=== PATIENT | male | born 1950 | race Caucasian/White ===

== ENCOUNTER 2019-02-11 10:10 | Inpatient (IN) | payer MEDICARE, SELFPAY ==
[2019-02-11] VITALS (8 sets, daily range): BP systolic 144–174; BP diastolic 70–95; PULSE 62–78; RESP 15–20; TEMP 36.4–36.7; O2SAT 94–99; BMI 38.8; BMI 38.5
--- NOTE | 2019-02-11 10:29 | CT_ITS ---
STUDY: CT ABDOMEN AND PELVIS WITHOUT CONTRAST REASON FOR EXAM: Male, 68 years old. Abdominal pain x1 week RADIATION DOSAGE (If Supplied By Facility): CTDIvol = ( 31.99 ) mGy, DLP = ( 1846.31 ) mGycm TECHNIQUE: Transaxial images were obtained from the dome of the diaphragm to the symphysis pubis with oral contrast, and without intravenous contrast. Sagittal and coronal images were reconstructed. Individualized dose optimization techniques were used for this CT. COMPARISON: None. FINDINGS: The visualized lung bases are unremarkable. The visualized portions of the heart are within normal limits. There is decreased attenuation of the liver consistent with steatosis. Normal gallbladder and extrahepatic biliary system. Normal spleen. There is diffuse atrophy of the pancreas. Normal bilateral adrenal glands. Right perinephric fat stranding or edema. Moderate right hydronephrosis without hydroureter. No obstructing stone. There is also left-sided hydronephrosis and left ureter. Prominent distention of the bladder suggesting urinary retention Normal visualized stomach. Normal small intestine. Prominent gaseous distended loops of colon with fecal retention. There is transition area with wall narrowing in the region of the rectum. Colonic diverticulosis without acute diverticulitis. The appendix is visualized and appears normal. Several prominent nonspecific pelvic lymph nodes. Normal abdominal aorta. Normal inferior vena cava. Normal retroperitoneum. Marked distention of the bladder compatible with urinary retention. Heterogeneous prostate Normal abdominal wall. There are diffuse degenerative changes of the visualized lumbar spine. CT/Abdomen/Pelvis without Cont IMPRESSION: 1. Significant distention of the urinary bladder with bilateral hydronephrosis and hydroureter without evidence of obstructing stone. There is bilateral perinephric fat stranding and edema suggesting inflammation and infection. Recommend placement of Sanchez catheter for decompression of the bladder. 2. There is prominent gaseous distended loops of colon with fecal retention. There appears to be transition point in the rectosigmoid colon with suspicion of wall thickening and underlying mass. Numerous prominent and suspicious pelvic lymph nodes are noted. Electronically Signed: Jaspal Bravo DO at 13:21 EDT Tel , Service support ,
--- NOTE | 2019-02-11 10:30 | ED.DCSUM_ITS ---
History of Present Illness Chief Complaint: Abd Pain Informant: Patient Onset: Weeks Current Severity: Moderate Maximum Severity: Moderate Narrative: Patient states that approximate month ago he was started on metformin for diabetes. He states this made him very sick and he stopped the medication. About a week and a half ago he started feeling ill again and noted his blood sugar was quite elevated, over 600. His PCP started him on insulin. His dose has been increased to twice throughout the past week. Blood sugars today are around 300. Patient continues to feel ill with nausea and diarrhea. He has lower abdominal cramping. He is abdomen is distended. Past Medical History - Allergies and Home Meds Allergies/Adverse Reactions: Allergies atorvastatin [From Lipitor] Allergy (Verified 02/11/19 10:11) Unknown Prior records reviewed: Yes Past Medical History: - - Reviewed Surgical History: herniorrhaphy Lives: Spouse/ Significant Other Smoking Status: Never smoker Review of Systems General: Denies: Chills, Fever Eyes: Denies: Visual changes - bilaterally ENT: Denies: Bilateral ear pain Cardiovascular: Denies: Chest pain Respiratory: Denies: Dyspnea Gastrointestinal: Reports: Abdominal pain, Nausea, Diarrhea Genitourinary: Denies: Dysuria, Hematuria Musculoskeletal: Reports: Myalgias Neurological: Denies: Headache Psych: Denies: Depression Endocrine: Reports: Polyuria, Polydipsia Hematologic: Denies: Easy bruising Allergy: Denies: Uticaria Physical Exam Vital Signs/Narrative: Vital Signs Temp Pulse Resp BP Pulse Ox 02/11/19 10:11 97.6 F L 78 18 144/85 H 96 Inital Vital Signs reviewed: Yes General: Well nourished, Well developed Head: Normocephalic Eyes: Perrl ENT: Moist mucous membranes Neck: Supple Cardiovascular: Regular rate, Tachycardia Respiratory: No distress, CTA bilaterally Abdomen: Soft, Normal bowel sounds, Tender, - - Abdomen distended with mild lower abdominal tenderness. Extremities: Nontender Skin: Normal color Neurological: Alert, Oriented x3 Psychological: Normal affect Diagnostic/Tx/Re-eval Impressions Abdomen/Pelvis CT 02/11/19 10:29 IMPRESSION: 1. Significant distention of the urinary bladder with bilateral hydronephrosis and hydroureter without evidence of obstructing stone. There is bilateral perinephric fat stranding and edema suggesting inflammation and infection. Recommend placement of Sanchez catheter for decompression of the bladder. 2. There is prominent gaseous distended loops of colon with fecal retention. There appears to be transition point in the rectosigmoid colon with suspicion of wall thickening and underlying mass. Numerous prominent and suspicious pelvic lymph nodes are noted. Electronically Signed: Jaspal Bravo DO at 13:21 EDT Tel , Service support , 02/11/19 10:29 Abdomen/Pelvis without Cont [CT] Stat Laboratory Results 02/11/19 02/11/19 02/11/19 10:50 10:50 13:45 WBC 9.7 RBC 4.43 L Hgb 12.7 L Hct 36.6 L MCV 82.6 MCH 28.7 MCHC 34.7 RDW Std Deviation 36.2 RDW Coeff of Argenis 11.9 Plt Count 209 MPV 10.6 Immature Gran % (Auto) 0.900 Neut % (Auto) 77.9 H Lymph % (Auto) 11.3 L [place] % (Auto) 9.4 Eos % (Auto) 0.3 Baso % (Auto) 0.2 Absolute Neuts (auto) 7.5 Absolute Lymphs (auto) 1.09 Nucleated RBC % 0 Sodium 118 L* Potassium 4.1 Chloride 81 L Carbon Dioxide 21.0 Anion Gap 16 H BUN 97 H Creatinine 8.69 H* Estim Creat Clear Calc 9.86 Est GFR (MDRD) Af Amer 8 L Est GFR (MDRD) Non-Af 7 L BUN/Creatinine Ratio 11.2 Glucose 264 H Calcium 8.0 L Total Bilirubin 0.60 Direct Bilirubin 0.21 AST 19 ALT 17 Alkaline Phosphatase 99 Total Protein 7.4 Albumin 3.2 Globulin 4.2 Urine Color Yellow Urine Clarity Clear Urine pH 6.0 Ur Specific [place] 1.010 Urine Protein Negative Urine Glucose (UA) 1000 H Urine Ketones Negative Urine Occult Blood Negative Urine Nitrite Negative Urine Bilirubin Negative Urine Urobilinogen Normal Ur Leukocyte Esterase Negative Urine RBC 0 SEEN Urine WBC 0 SEEN Ur Squamous Epith Cells 0 SEEN Urine Bacteria 0 SEEN Urine Mucus 0 SEEN - Medical Decision Making Patient was given morphine and Zofran on arrival. On repeat evaluation is resting comfortably. He is asked multiple times if he felt the urge to urinate and he denied. He was advised that his sodium level was quite low and he was in acute renal failure. After CT scan was obtained it was noted the patient had a very distended bladder. Sanchez catheter was placed and he had over 2500 cc of urine out. I did discuss CT findings which include gaseous distention of the colon loops with fecal retention. There is a possible transition point in the rectosigmoid colon with possible wall thickening and underlying mass. Patient has never had a colonoscopy. Patient will be admitted for further treatment. Now that his bladder is draining I anticipate his renal failure will improve. His sodium level will need to be corrected. I will speak with hospitalist. ED Disposition - Plan for ED Patient: Disposition: Acute Care Hospital [facility] Diagnosis: Renal failure, Urinary retention, Hyponatremia
[2019-02-11] MEDS: 0.9% Normal Saline 1,000 ML 1000 ML IV (10:54)
[2019-02-11] MEDS: Ondansetron 4 MG/2 ML Vial IV (10:54)
[2019-02-11] MEDS: Morphine 4 MG/ML Syringe IV (10:54)
[2019-02-11 10:56] LABS: Absolute Lymphocyte Count 1.09 X10^3/uL (0.83-4.51); Absolute Neutrophil Count 7.5 X10^3/uL (2.0-7.7); Basophil# 0.02 X10^3/uL; Basophil% 0.2 % (0-1); Eosinophil# 0.03 X10^3/uL; Eosinophils% 0.3 % (0-5); Hematocrit 36.6 % (40-54); Hemoglobin 12.7 g/dL (13.0-16.5); Lymphocyte # 1.09 X10^3/ul (4.0); Lymphocyte % 11.3 % (19-41); Mean Corp Hgb Conc 34.7 g/dL (32-36); Mean Corpuscular Hgb 28.7 pg (27.0-32.0); Mean Corpuscular Volume 82.6 fL (80-94); Mean Platelet Vol. 10.6 fl (6.2-12.0); Monocyte# 0.91 X10^3/uL; Monocyte% 9.4 % (0-10); NRBC Flagged by Analyzer 0 % (0-5); Neutrophil # 7.53 X10^3/uL (2.7-7.7); Neutrophil % 77.9 % (47-70); Platelet Count 209 K/mm3 (150-450); RBC Distribution Width CV 11.9 % (11.6-14.6); RBC Distribution Width SD 36.2 fl (35.1-43.9); Red Blood Count 4.43 M/mm3 (4.6-6.2); White Blood Count 9.7 K/mm3 (4.4-11.0)
[2019-02-11 11:18] LABS: AST(SGOT) 19 U/L (15-37); Alanine Aminotransfer ALT/SGPT 17 U/L (16-61); Albumin, Serum 3.2 g/dL (3.2-5.0); Alkaline Phosphatase 99 U/L (45-117); Anion Gap 16 (5-15); BUN 97 mg/dL (7-18); BUN/Creat Ratio 11.2 RATIO (10-20); Bilirubin, Direct 0.21 mg/dL (0.00-0.30); Chloride 81 mmol/L (98-107); Creatinine, Serum 8.69 mg/dL (0.70-1.30); EST Glomerular Filtration Rate 7 mL/min (>60); Est Glom Filt Rate - Afr Amer 8 mL/min (>60); Estimated Creatinine Clearance 9.86 ml/min; Globulin 4.2 g/dL (2.2-4.2); Glucose 264 mg/dL (74-106); Potassium 4.1 mmol/L (3.5-5.1); Protein, Total 7.4 g/dL (6.4-8.2); Sodium Level 118 mmol/L (136-145)
--- NOTE | 2019-02-11 11:20 | ED.RN ---
LAB RESULTED NA 118, SERUM CREATININ IS 8.69, PHYSICIAN NOTIFIED
[2019-02-11] MEDS: 0.9% Normal Saline 1,000 ML 150 ML IV (12:30)
[2019-02-11 13:53] LABS: Bacteria 0 SEEN /hpf (None Seen); Color, Urine Yellow (Yellow); Glucose, Dipstick 1000 mg/dl (Normal); Ketone-Dipstick Negative (Negative); Leukocyte Esterase-Dipstick Negative /ul (Negative); Mucous, Urine 0 SEEN /hpf (<or=2+); Nitrite-Dipstick Negative (Negative); Occult Blood-Urine Negative /ul (Negative); Protein-Dipstick Negative (Negative); Red Blood Cells-Urine 0 SEEN /hpf (0-5); Squamous Epithelial Cells - UA 0 SEEN /hpf (0-5); Urine Bilirubin Dipstick Negative (Negative); Urine Clarity Clear (Clear); Urine Urobilinogen Normal (Normal); White Blood Cells 0 SEEN /hpf (0-5)
--- NOTE | 2019-02-11 14:55 | PCM.HP.STD ---
Problem List (1) Uncontrolled type 2 diabetes mellitus Status: Acute (2) Renal failure Status: Acute (3) Urinary retention Status: Acute (4) Hyponatremia Status: Acute History of Present Illness Date of Admission: 02/11/19 Chief Complaint: Abdominal pain The patient is a 68 year old M with new onset type 2 diabetes which is uncontrolled, presents with weeks of not feeling well. He states that about a month ago he was started on metformin for high blood sugar and diabetes, however that made him feel very ill and he could not continue it and therefore his doctor transitioned to insulin. In the last week he has had to increase his insulin from 20 U to 40 U. He presents today because of abdominal distention and abdominal pain as well as just not feeling well. In the ER today a CT scan was performed that shows a rectosigmoid transition point which could be a potential mass since he is never had a colonoscopy, as well as suspicious lymph nodes. He also had a highly distended bladder with mild hydronephrosis on the right, and new onset renal failure. A Mahajan was placed in the ER with over 2 L of urine output and he was started on IVF. Past Medical History Allergies atorvastatin [From Lipitor] Allergy (Verified 02/11/19 10:11) Unknown Home Medications: Ambulatory Orders Medication Instructions Recorded Insulin Glargine,Hum.rec.anlog 30 unit SQ QHS 02/11/19 [Lantus] Surgical History: herniorrhaphy Lives: Spouse/ Significant Other Smoking Status: Never smoker Alcohol: None Drugs: None - *Family History Maternal History Items: Cancer Paternal History Items: No pertinent history Review of Systems Constitutional: Reports: Malaise. Denies: Chills, Fever, Weight Change HEENT: Denies: Head Aches, Sinus Congestion, Sinus Drainage Cardiovascular: Denies: Chest Pain, Palpitations Respiratory: Denies: Cough, Shortness of breath at rest, Sputum production Gastrointestinal: Reports: Abdominal Pain. Denies: Nausea, Vomiting Genitourinary: Reports: Retention. Denies: Dysuria Musculoskeletal: Denies: Joint Pain, Joint Tenderness Skin: Denies: Rash, Wounds Neurological: Denies: Numbness, Tingling, Focal weakness Psychiatric: Denies: Anxiety, Depression Hematologic/ Lymphatic: Denies: Easy Bruising, Easy Bleeding VTE Information - Inpt Only VTE Present on Admission: No Patient Problems: Active and Suspected Problems Renal failure (Acute) Urinary retention (Acute) Hyponatremia (Acute) Uncontrolled type 2 diabetes mellitus (Acute) - Physical Exam General: Alert, Oriented x3, Cooperative, No apparent distress HEENT: Atraumatic, PERRLA, EOMI, Normocephalic Oral: Dry Mucosa Neck: Supple, No JVD Lungs: Clear to auscultation, Normal air movement, No rhonchi, No wheeze, No rales Cardiovascular: Regular rate, Regular Rhythm, Normal S1, Normal S2, No murmurs Abdomen: Soft, Non Tender - He was tender prior to the mahajan being placed, Non-Distended, No Hepato-splenomegaly, Obese Extremities: No edema, Capillary Refill Less than 3 Seconds Skin: No rashes, No breakdown Neurological: Neuro grossly intact, Sensory exam intact to light touch and pain Psych/Mental Status: Normal Affect, Appropriate Vital Signs Temp Pulse Resp BP Pulse Ox 97.6 F L 64 15 144/72 H 96 02/11/19 10:11 02/11/19 14:37 02/11/19 14:37 02/11/19 14:37 02/11/19 10:11 Oxygen Delivery Method Room Air Weight: 310 lb 13.628 oz Body Mass Index (BMI) 38.8 Laboratory Tests Past 24 Hrs 02/11/19 02/11/19 02/11/19 10:50 10:50 13:45 WBC 9.7 RBC 4.43 L Hgb 12.7 L Hct 36.6 L MCV 82.6 MCH 28.7 MCHC 34.7 RDW Std Deviation 36.2 RDW Coeff of Argenis 11.9 Plt Count 209 MPV 10.6 Immature Gran % (Auto) 0.900 Neut % (Auto) 77.9 H Lymph % (Auto) 11.3 L [place] % (Auto) 9.4 Eos % (Auto) 0.3 Baso % (Auto) 0.2 Absolute Neuts (auto) 7.5 Absolute Lymphs (auto) 1.09 Nucleated RBC % 0 Sodium 118 L* Potassium 4.1 Chloride 81 L Carbon Dioxide 21.0 Anion Gap 16 H BUN 97 H Creatinine 8.69 H* Estim Creat Clear Calc 9.86 Est GFR (MDRD) Af Amer 8 L Est GFR (MDRD) Non-Af 7 L BUN/Creatinine Ratio 11.2 Glucose 264 H Calcium 8.0 L Total Bilirubin 0.60 Direct Bilirubin 0.21 AST 19 ALT 17 Alkaline Phosphatase 99 Total Protein 7.4 Albumin 3.2 Globulin 4.2 Urine Color Yellow Urine Clarity Clear Urine pH 6.0 Ur Specific [place] 1.010 Urine Protein Negative Urine Glucose (UA) 1000 H Urine Ketones Negative Urine Occult Blood Negative Urine Nitrite Negative Urine Bilirubin Negative Urine Urobilinogen Normal Ur Leukocyte Esterase Negative Urine RBC 0 SEEN Urine WBC 0 SEEN Ur Squamous Epith Cells 0 SEEN Urine Bacteria 0 SEEN Urine Mucus 0 SEEN Assessment/Plan All Active Problems Renal failure (Acute) Urinary retention (Acute) Hyponatremia (Acute) Uncontrolled type 2 diabetes mellitus (Acute) 1. Acute renal failure secondary to urinary retention/hyponatremia -The renal failure is likely secondary to his urinary retention, therefore will monitor creatinine and if he does not have fairly rapid resolution of his creatinine then we will plan on consulting nephrology -We will place Mahajan and maintain -We will start him on Flomax - we will monitor his hyponatremia, part of it is related to his elevated blood sugars as he is recently been in the 600s, his sodium of 118 corrected but 121 based on his blood sugar today -We will place him on normal saline at 100, given how high his blood sugars have been recently there could be an osmotic diuresis effect causing his hyponatremia -The ED is attempting to obtain labs from his PCP 2. Uncontrolled diabetes type 2/severe obesity -He is currently on Lantus 40 units at night which we will continue -Accu-Cheks and provide sliding scale insulin as well as Lispro 5U TIDAC -Will obtain lipids and a A1c - His BMI is 38.9 and lifestyle modifications were discussed including diet and exercise. Will consult the bill of materials clerk for teaching 3. Rectosigmoid mass? - He does have a transition point on my review of the CT where the bladder is compressing the rectosigmoid - However there are also visible lymph nodes lending credence to the possibility of a mass - Consult to Dr. Marroquin for evaluation, patient request since Dr. Marroquin placed the wifes chemo port DVT: Heparin Code Visit Inpatient E&M: 51070 Init Hosp L3
--- NOTE | 2019-02-11 15:36 | NURSING ---
called ER informed nurse had sent message around [phone] ok to send patient.
[2019-02-11 16:46] LABS: Bedside Glucose 201 mg/dL (70-110)
[2019-02-11] MEDS: 0.9% Normal Saline 1,000 ML 100 ML IV (18:14)
[2019-02-11] MEDS: Insulin Lispro 100 UNIT/ML INSULN.PEN SC ×2 (18:16→22:01)
[2019-02-11] MEDS: Tamsulosin HCl 0.4 MG Capsule PO (18:17)
--- NOTE | 2019-02-11 19:05 | NURSING ---
PT GIVEN 1 TAP WATER ENEMA, PT TOLERATED WELL
[2019-02-11] MEDS: Heparin Injection (Vial) 5,000 UNIT/ML VIAL 5000 UNIT SC (22:00)
[2019-02-11 22:15] LABS: Bedside Glucose 185 mg/dL (70-110)
[2019-02-12 03:32] VITALS: BP 128/60; PULSE 65; RESP 20; TEMP 36.4; O2SAT 94
[2019-02-12] MEDS: 0.9% Normal Saline 1,000 ML 100 ML IV ×2 (05:38→16:56)
[2019-02-12 05:48] LABS: Absolute Lymphocyte Count 1.21 X10^3/uL (0.83-4.51); Absolute Neutrophil Count 5.6 X10^3/uL (2.0-7.7); Basophil# 0.03 X10^3/uL; Basophil% 0.4 % (0-1); Eosinophil# 0.04 X10^3/uL; Eosinophils% 0.5 % (0-5); Hematocrit 34.6 % (40-54); Hemoglobin 11.8 g/dL (13.0-16.5); Lymphocyte # 1.21 X10^3/ul (4.0); Lymphocyte % 15.3 % (19-41); Mean Corp Hgb Conc 34.1 g/dL (32-36); Mean Corpuscular Hgb 28.3 pg (27.0-32.0); Mean Platelet Vol. 11.2 fl (6.2-12.0); Monocyte# 0.99 X10^3/uL; Monocyte% 12.5 % (0-10); NRBC Flagged by Analyzer 0 % (0-5); Neutrophil # 5.58 X10^3/uL (2.7-7.7); Neutrophil % 70.5 % (47-70); Platelet Count 208 K/mm3 (150-450); RBC Distribution Width CV 12.3 % (11.6-14.6); RBC Distribution Width SD 37.2 fl (35.1-43.9); Red Blood Count 4.17 M/mm3 (4.6-6.2); White Blood Count 7.9 K/mm3 (4.4-11.0)
--- NOTE | 2019-02-12 06:00 | EKG12_ITS ---
Test Reason : PRE OP Blood Pressure : / mmHG Vent. Rate : 071 BPM Atrial Rate : 071 BPM P-R Int : 170 ms QRS Dur : 110 ms QT Int : 428 ms P-R-T Axes : 059 039 029 degrees QTc Int : 465 ms Normal sinus rhythm Normal ECG No previous ECGs available Confirmed by RILEY ALBARADO ([id number]), make up editor DELIO BALL ([id number]) on 02/15/2019 2:59:42 PM Referred By: Dakota Quinonez Confirmed By:RILEY ALBARADO
[2019-02-12 06:20] LABS: Anion Gap 12 (5-15); BUN 49 mg/dL (7-18); BUN/Creat Ratio 20.4 RATIO (10-20); Calcium,Total 8.2 mg/dL (8.5-10.1); Chloride 104 mmol/L (98-107); EST Glomerular Filtration Rate 29 mL/min (>60); Est Glom Filt Rate - Afr Amer 35 mL/min (>60); Estimated Creatinine Clearance 34.73 ml/min; Glucose 81 mg/dL (74-106); Potassium 3.2 mmol/L (3.5-5.1); Sodium Level 141 mmol/L (136-145)
--- NOTE | 2019-02-12 06:31 | RAD_ITS ---
STUDY: X-RAY - ABDOMEN/PELVIS REASON FOR EXAM: Male, 68 years old. Abdominal distention. TECHNIQUE: AP supine and upright views of the abdomen and pelvis. COMPARISON: None. FINDINGS: There is elevation of the left hemidiaphragm. There is an abundance of fecal material throughout the colon. There is no demonstrated free abdominal air. The visualized liver, spleen and kidneys are grossly normal in size and morphology. Normal soft tissue structures. There are diffuse degenerative changes of the visualized lumbar spine. RAD/Abd Inc Decub and/or Erect IMPRESSION: Large amount of fecal material is seen in the colon. Electronically Signed: Lalo Ryan, at 10:36 EDT , Service support ,
--- NOTE | 2019-02-12 07:26 | CON.PCM_ITS ---
Reason for Consult Date of Consultation: 02/12/19 Reason for Consultation: Elevated PSA, acute urinary retention with renal failure and bilateral hydronephrosis History of Present Illness: The patient is a 68 year old male presented to the hospital with a distended abdomen, acute renal failure with a creatinine up to 8. He had 2.5 L in his bladder Sanchez catheter was placed he had bilateral hydronephrosis, his creatinine is coming down overnight. He had a very distended bladder with lots of gas. Also his diabetes was out of control. He is also found to have a PSA very elevated at 100. Past Medical History Allergies atorvastatin [From Lipitor] Allergy (Verified 02/11/19 10:11) Unknown Home Medications: Ambulatory Orders Medication Instructions Recorded Insulin Glargine,Hum.rec.anlog 30 unit SQ QHS 02/11/19 [Lantus] Surgical History: herniorrhaphy Psychiatric History: No pertinent psych hx Lives: Spouse/ Significant Other Smoking Status: Never smoker Alcohol: None Drugs: None - *Family History Maternal History Items: Cancer Paternal History Items: No pertinent history Review of Systems Constitutional: Denies: Chills, Fever, Weight Change HEENT: Denies: Head Aches, Sinus Congestion, Sinus Drainage Cardiovascular: Denies: Chest Pain, Palpitations Respiratory: Denies: Cough, Shortness of breath at rest, Sputum production Gastrointestinal: Denies: Abdominal Pain, Nausea, Vomiting Genitourinary: Reports: Retention. Denies: Dysuria Musculoskeletal: Denies: Joint Pain, Joint Tenderness Skin: Denies: Rash, Wounds Neurological: Denies: Numbness, Tingling, Focal weakness Psychiatric: Denies: Anxiety, Depression, Homicidal Ideations, Suicidal Ideations Hematologic/ Lymphatic: Denies: Easy Bruising, Easy Bleeding Physical Exam - Physical Exam Vital Signs Temp 97.6 F L 02/12/19 03:32 Pulse 65 02/12/19 03:32 Resp 20 H 02/12/19 03:32 BP 128/60 H 02/12/19 03:32 Pulse Ox 94 02/12/19 03:32 Intake & Output 02/10/19 02/11/19 02/12/19 23:59 23:59 23:59 Intake Total 451 / 451 2102 / 2102 Output Total 2800 / 2800 6450 / 6450 Balance -2349 / -2349 -4348 / -4348 Weight: 135.9 kg Intake: Oral 200 / 200 1000 / 1000 IV fluid/meds 251 / 251 1102 / 1102 Output: Urine 2800 / 2800 6450 / 6450 Laboratory Tests Past 24 Hrs 02/11/19 02/11/19 02/11/19 10:50 10:50 10:50 WBC 9.7 RBC 4.43 L Hgb 12.7 L Hct 36.6 L MCV 82.6 MCH 28.7 MCHC 34.7 RDW Std Deviation 36.2 RDW Coeff of Argenis 11.9 Plt Count 209 MPV 10.6 Immature Gran % (Auto) 0.900 Neut % (Auto) 77.9 H Lymph % (Auto) 11.3 L [place] % (Auto) 9.4 Eos % (Auto) 0.3 Baso % (Auto) 0.2 Absolute Neuts (auto) 7.5 Absolute Lymphs (auto) 1.09 Nucleated RBC % 0 Sodium 118 L* Potassium 4.1 Chloride 81 L Carbon Dioxide 21.0 Anion Gap 16 H BUN 97 H Creatinine 8.69 H* Estim Creat Clear Calc 9.86 Est GFR (MDRD) Af Amer 8 L Est GFR (MDRD) Non-Af 7 L BUN/Creatinine Ratio 11.2 Glucose 264 H Calcium 8.0 L Total Bilirubin 0.60 Direct Bilirubin 0.21 AST 19 ALT 17 Alkaline Phosphatase 99 Total Protein 7.4 Albumin 3.2 Globulin 4.2 PSA Screen 107.00 H Urine Color Urine Clarity Urine pH Ur Specific [place] Urine Protein Urine Glucose (UA) Urine Ketones Urine Occult Blood Urine Nitrite Urine Bilirubin Urine Urobilinogen Ur Leukocyte Esterase Urine RBC Urine WBC Ur Squamous Epith Cells Urine Bacteria Urine Mucus 02/11/19 02/12/19 02/12/19 13:45 05:16 05:16 WBC 7.9 RBC 4.17 L Hgb 11.8 L Hct 34.6 L MCV 83.0 MCH 28.3 MCHC 34.1 RDW Std Deviation 37.2 RDW Coeff of Argenis 12.3 Plt Count 208 MPV 11.2 Immature Gran % (Auto) 0.800 Neut % (Auto) 70.5 H Lymph % (Auto) 15.3 L [place] % (Auto) 12.5 H Eos % (Auto) 0.5 Baso % (Auto) 0.4 Absolute Neuts (auto) 5.6 Absolute Lymphs (auto) 1.21 Nucleated RBC % 0 Sodium 141 Potassium 3.2 L Chloride 104 Carbon Dioxide 25.0 Anion Gap 12 BUN 49 H Creatinine 2.40 H Estim Creat Clear Calc 34.73 Est GFR (MDRD) Af Amer 35 L Est GFR (MDRD) Non-Af 29 L BUN/Creatinine Ratio 20.4 H Glucose 81 Calcium 8.2 L Total Bilirubin Direct Bilirubin AST ALT Alkaline Phosphatase Total Protein Albumin Globulin PSA Screen Urine Color Yellow Urine Clarity Clear Urine pH 6.0 Ur Specific [place] 1.010 Urine Protein Negative Urine Glucose (UA) 1000 H Urine Ketones Negative Urine Occult Blood Negative Urine Nitrite Negative Urine Bilirubin Negative Urine Urobilinogen Normal Ur Leukocyte Esterase Negative Urine RBC 0 SEEN Urine WBC 0 SEEN Ur Squamous Epith Cells 0 SEEN Urine Bacteria 0 SEEN Urine Mucus 0 SEEN Assessment/Plan All Active Problems Renal failure (Acute) Urinary retention (Acute) Hyponatremia (Acute) Uncontrolled type 2 diabetes mellitus (Acute) Assessment and plan 68-year-old male presented to the hospital with acute urinary retention bilateral hydronephrosis catheter was placed drained a significant amount of urine out he has bilateral hydronephrosis elevated PSA of over 100. For now we will recommend continue with catheter drainage to drain the bladder and the kidneys. Possible he may have prostate cancer but also the PSA could be elevated from distended bladder and recent traumatization. He is going require prostate surgery to regain normal spontaneous voiding. Plan to have him follow-up in the office for a checkup once all his other medical issues are resolved then would proceed with a TURP and a prostate biopsy. Patient is to go home with a Sanchez catheter and he can call my office for an appointment if any questions let me know.
--- NOTE | 2019-02-12 07:35 | PCM.CONS.GEN ---
Reason for Consult Date of Consultation: 02/12/19 History of Present Illness: The patient is a 68 year old M who notes a history of lower abdominal discomfort and some difficulty voiding for the past few weeks. He now noted increasing difficulty moving his bowels and significant abdominal distention along with lower abdominal pain. He denied blood in the stools. He previously had a colonoscopy on 2010. When he presented emergency department, the CT scan reading was read as a rectosigmoid transition point that could've felt to benefit potential mass along with suspicious lymph nodes. The patient is also have a highly distended bladder with hydronephrosis likely secondary to reflux. I reviewed the CT scan and my impression was that the colon was obstructed likely from external compression from the bladder. I also felt the prostate looked significantly irregular and was concerned about the possibility of prostate cancer versus prosthetic hypertrophy. I was consulted for possible colonic obstruction. A Sanchez catheter was placed in the emergency department and 2 L of urine diuresed rapidly. Overnight, the patient additional 6 L of urine output. His initial presentation laboratory studies werea sodium of 118 which is improved in the morning 141.BUN and creatinine improved from 97 and 8.69 to 49 and 2.4. I had ordered a PSA test. This returned as 107. After the Sanchez catheter was placed the patient did note some flatus but has had a small bowel movement following an enema. Past Medical History Allergies atorvastatin [From Lipitor] Allergy (Verified 02/11/19 10:11) Unknown Home Medications: Ambulatory Orders Medication Instructions Recorded Insulin Glargine,Hum.rec.anlog 30 unit SQ QHS 02/11/19 [Lantus] Surgical History: herniorrhaphy Psychiatric History: No pertinent psych hx Lives: Spouse/ Significant Other Smoking Status: Never smoker Alcohol: None Drugs: None - *Family History Maternal History Items: Cancer Paternal History Items: No pertinent history Review of Systems Constitutional: Reports: Malaise. Denies: Chills, Fever, Weight Change HEENT: Denies: Head Aches, Sinus Congestion, Sinus Drainage Cardiovascular: Denies: Chest Pain, Palpitations Respiratory: Denies: Cough, Shortness of breath at rest, Sputum production Gastrointestinal: Reports: Abdominal Pain, Constipation. Denies: Nausea, Vomiting Genitourinary: Reports: Retention. Denies: Dysuria Musculoskeletal: Denies: Joint Pain, Joint Tenderness Skin: Denies: Rash, Wounds Neurological: Denies: Numbness, Tingling, Focal weakness Psychiatric: Denies: Anxiety, Depression, Homicidal Ideations, Suicidal Ideations Hematologic/ Lymphatic: Denies: Easy Bruising, Easy Bleeding Patient Problems: Active and Suspected Problems Renal failure (Acute) Urinary retention (Acute) Hyponatremia (Acute) Uncontrolled type 2 diabetes mellitus (Acute) - Physical Exam General: Alert, Oriented x3, Cooperative HEENT: Atraumatic, PERRLA, EOMI, Normocephalic Neck: Supple, No JVD, Negative Carotid Bruits Lungs: Clear to auscultation, Normal air movement Cardiovascular: Regular rate, No murmurs Abdomen: Bowel Sounds Present, Soft, Non Tender Extremities: No edema, Capillary Refill Less than 3 Seconds Skin: No rashes, No breakdown Musculoskeletal: No Tenderness to Palpation of Joints or Extremities Neurological: Cranial nerves II-XII grossly intact Psych/Mental Status: Normal Affect, Appropriate Vital Signs Temp Pulse Resp BP Pulse Ox 97.6 F L 65 20 H 128/60 H 94 02/12/19 03:32 02/12/19 03:32 02/12/19 03:32 02/12/19 03:32 02/12/19 03:32 Oxygen Delivery Method CPAP Weight: 135.9 kg Body Mass Index (BMI) 38.5 Intake and Output for Last 24 Hours 02/10/19 02/11/19 02/12/19 23:59 23:59 23:59 Intake Total 451 / 451 2102 / 2102 Output Total 2800 / 2800 6450 / 6450 Balance -2349 / -2349 -4348 / -4348 Laboratory Tests Past 24 Hrs 02/11/19 02/11/19 02/11/19 10:50 10:50 10:50 WBC 9.7 RBC 4.43 L Hgb 12.7 L Hct 36.6 L MCV 82.6 MCH 28.7 MCHC 34.7 RDW Std Deviation 36.2 RDW Coeff of Argenis 11.9 Plt Count 209 MPV 10.6 Immature Gran % (Auto) 0.900 Neut % (Auto) 77.9 H Lymph % (Auto) 11.3 L [place] % (Auto) 9.4 Eos % (Auto) 0.3 Baso % (Auto) 0.2 Absolute Neuts (auto) 7.5 Absolute Lymphs (auto) 1.09 Nucleated RBC % 0 Sodium 118 L* Potassium 4.1 Chloride 81 L Carbon Dioxide 21.0 Anion Gap 16 H BUN 97 H Creatinine 8.69 H* Estim Creat Clear Calc 9.86 Est GFR (MDRD) Af Amer 8 L Est GFR (MDRD) Non-Af 7 L BUN/Creatinine Ratio 11.2 Glucose 264 H Calcium 8.0 L Total Bilirubin 0.60 Direct Bilirubin 0.21 AST 19 ALT 17 Alkaline Phosphatase 99 Total Protein 7.4 Albumin 3.2 Globulin 4.2 PSA Screen 107.00 H Urine Color Urine Clarity Urine pH Ur Specific [place] Urine Protein Urine Glucose (UA) Urine Ketones Urine Occult Blood Urine Nitrite Urine Bilirubin Urine Urobilinogen Ur Leukocyte Esterase Urine RBC Urine WBC Ur Squamous Epith Cells Urine Bacteria Urine Mucus 02/11/19 02/12/19 02/12/19 13:45 05:16 05:16 WBC 7.9 RBC 4.17 L Hgb 11.8 L Hct 34.6 L MCV 83.0 MCH 28.3 MCHC 34.1 RDW Std Deviation 37.2 RDW Coeff of Argenis 12.3 Plt Count 208 MPV 11.2 Immature Gran % (Auto) 0.800 Neut % (Auto) 70.5 H Lymph % (Auto) 15.3 L [place] % (Auto) 12.5 H Eos % (Auto) 0.5 Baso % (Auto) 0.4 Absolute Neuts (auto) 5.6 Absolute Lymphs (auto) 1.21 Nucleated RBC % 0 Sodium 141 Potassium 3.2 L Chloride 104 Carbon Dioxide 25.0 Anion Gap 12 BUN 49 H Creatinine 2.40 H Estim Creat Clear Calc 34.73 Est GFR (MDRD) Af Amer 35 L Est GFR (MDRD) Non-Af 29 L BUN/Creatinine Ratio 20.4 H Glucose 81 Calcium 8.2 L Total Bilirubin Direct Bilirubin AST ALT Alkaline Phosphatase Total Protein Albumin Globulin PSA Screen Urine Color Yellow Urine Clarity Clear Urine pH 6.0 Ur Specific [place] 1.010 Urine Protein Negative Urine Glucose (UA) 1000 H Urine Ketones Negative Urine Occult Blood Negative Urine Nitrite Negative Urine Bilirubin Negative Urine Urobilinogen Normal Ur Leukocyte Esterase Negative Urine RBC 0 SEEN Urine WBC 0 SEEN Ur Squamous Epith Cells 0 SEEN Urine Bacteria 0 SEEN Urine Mucus 0 SEEN POC Glucose 02/11/19 02/11/19 21:56 16:34 POC Glucose 185 H 201 H Assessment/Plan All Active Problems Renal failure (Acute) Urinary retention (Acute) Hyponatremia (Acute) Uncontrolled type 2 diabetes mellitus (Acute) urinary retention, prostate cancer versus significant benign prostatic hypertrophy, questionable colonic transition point. The patient was seen by Dr. Frias. He'll follow up in Dr. Brand's office for ultrasound-guided prostate exam and/or biopsy. The patient will have a Sanchez catheter maintained until that time. As the patient had some improvement exam I do not plan for emergency unprepped colonoscopy today. My plan was for the patient to try Miralax Gatorade prep and then plan for some elective colonoscopy tomorrow to evaluate not just the area of concern but the entire colon. The patient worsened the risks, benefits, possible complications and alternatives and consents to the planned endoscopy procedure.
[2019-02-12 07:49] VITALS: BP 116/54; PULSE 72; RESP 16; TEMP 36.6; O2SAT 97
[2019-02-12] MEDS: Insulin Lispro 100 UNIT/ML INSULN.PEN SC ×4 (08:11→21:24)
[2019-02-12 08:26] LABS: Bedside Glucose 88 mg/dL (70-110)
--- NOTE | 2019-02-12 08:37 | PN_ITS ---
Patient Problems: Active and Suspected Problems Renal failure (Acute) Urinary retention (Acute) Hyponatremia (Acute) Uncontrolled type 2 diabetes mellitus (Acute) Subjective: Patient is a 68-year-old gentleman admitted with acute urinary retention. CT of the abdomen and pelvis obtained demonstrated Significant distention of the urinary bladder with bilateral hydronephrosis and hydroureter. Admitted to regular nursing floor Sanchez catheter placed consultation placed to both general surgery as well as urology Objective: GENERAL: cooperative HEENT: Atraumatic; EYES; Anicteric, Normal Conjunctiva NECK; supple, normal thyroid, RESPIRATORY: Diminished to auscultation CARDIOVASCULAR: Regular S1 S2, GI: soft, non-tender, normoactive bowel sounds, : No Renal angle tenderness; EXTREMITIES: No edema, no clubbing, MUSCULOSKELETAL: No Joint Tenderness; NEURO: Awake; no lateralizing signs. SKIN: No Rash PSYCH; Normal affect Vitals/I&O's: Vital Signs Temp Pulse Resp BP Pulse Ox 97.8 F 72 16 116/54 L 97 02/12/19 07:49 02/12/19 07:49 02/12/19 07:49 02/12/19 07:49 02/12/19 07:49 Oxygen Delivery Method Room Air Weight: 135.9 kg Body Mass Index (BMI) 38.5 Intake and Output for Last 24 Hours 02/10/19 02/11/19 02/12/19 23:59 23:59 23:59 Intake Total 451 / 451 2102 / 2102 Output Total 2800 / 2800 6450 / 6450 Balance -2349 / -2349 -4348 / -4348 Laboratory Results 02/11/19 10:50: WBC 9.7, RBC 4.43 L, Hgb 12.7 L, Hct 36.6 L, MCV 82.6, MCH 28.7, MCHC 34.7, RDW Std Deviation 36.2, RDW Coeff of Argenis 11.9, Plt Count 209, MPV 10.6, Immature Gran % (Auto) 0.900, Neut % (Auto) 77.9 H, Lymph % (Auto) 11.3 L, [place] % (Auto) 9.4, Eos % (Auto) 0.3, Baso % (Auto) 0.2, Absolute Neuts (auto) 7.5, Absolute Lymphs (auto) 1.09, Nucleated RBC % 0 02/11/19 10:50: Sodium 118 L*, Potassium 4.1, Chloride 81 L, Carbon Dioxide 21.0, Anion Gap 16 H, BUN 97 H, Creatinine 8.69 H*, Estim Creat Clear Calc 9.86, Est GFR (MDRD) Af Amer 8 L, Est GFR (MDRD) Non-Af 7 L, BUN/Creatinine Ratio 11.2, Glucose 264 H, Calcium 8.0 L, Total Bilirubin 0.60, Direct Bilirubin 0.21, AST 19, ALT 17, Alkaline Phosphatase 99, Total Protein 7.4, Albumin 3.2, Globulin 4.2 02/11/19 10:50: PSA Screen 107.00 H 02/11/19 13:45: Urine Color Yellow, Urine Clarity Clear, Urine pH 6.0, Ur Specific [place] 1.010, Urine Protein Negative, Urine Glucose (UA) 1000 H, Urine Ketones Negative, Urine Occult Blood Negative, Urine Nitrite Negative, Urine Bilirubin Negative, Urine Urobilinogen Normal, Ur Leukocyte Esterase Negative, Urine RBC 0 SEEN, Urine WBC 0 SEEN, Ur Squamous Epith Cells 0 SEEN, Urine Bacteria 0 SEEN, Urine Mucus 0 SEEN 02/11/19 16:34: POC Glucose 201 H 02/11/19 21:56: POC Glucose 185 H 02/12/19 05:16: WBC 7.9, RBC 4.17 L, Hgb 11.8 L, Hct 34.6 L, MCV 83.0, MCH 28.3, MCHC 34.1, RDW Std Deviation 37.2, RDW Coeff of Argenis 12.3, Plt Count 208, MPV 11.2, Immature Gran % (Auto) 0.800, Neut % (Auto) 70.5 H, Lymph % (Auto) 15.3 L, [place] % (Auto) 12.5 H, Eos % (Auto) 0.5, Baso % (Auto) 0.4, Absolute Neuts (auto) 5.6, Absolute Lymphs (auto) 1.21, Nucleated RBC % 0 02/12/19 05:16: Sodium 141, Potassium 3.2 L, Chloride 104, Carbon Dioxide 25.0, Anion Gap 12, BUN 49 H, Creatinine 2.40 H, Estim Creat Clear Calc 34.73, Est GFR (MDRD) Af Amer 35 L, Est GFR (MDRD) Non-Af 29 L, BUN/Creatinine Ratio 20.4 H, Glucose 81, Calcium 8.2 L 02/12/19 08:04: POC Glucose 88 Current Medications Dextrose (D50w Syringe) 0 gm IV X1 PRN; Protocol PRN Reason: Hypoglycemia Glucagon () 1 mg IM .X1 PRN PRN Reason: Hypoglycemia Heparin Sodium (Porcine) (Heparin Na) 5,000 unit SC Q12 [facility] Last Admin: 02/12/19 01:10 Dose: Not Given Documented by: Sodium Chloride () 1,000 mls @ 100 mls/hr IV .Q10H [facility] Last Admin: 02/12/19 05:38 Dose: 100 mls/hr Documented by: Insulin Glargine (Lantus (Bkc)) 40 units SC QHS [facility] Last Admin: 02/11/19 22:02 Dose: 40 u Documented by: Insulin Human Lispro (Humalog Kwikpen (Bkc)) 0 unit SC ACHS [facility]; Protocol Last Admin: 02/12/19 08:07 Dose: Not Given Documented by: Insulin Human Lispro (Humalog Kwikpen (Bkc)) 5 unit SC TIDAC [facility] Last Admin: 02/12/19 08:11 Dose: 5 u Documented by: Sodium Chloride () 10 - 40 ml IV UD PRN PRN Reason: SALINE FLUSH Tamsulosin HCl (Flomax) 0.4 mg PO DAILY@1730 [facility] Last Admin: 02/11/19 18:17 Dose: 0.4 mg Documented by: Medical Necessity - Tobacco Use Smoking Status: Never smoker Assessment/Plan All Active Problems Renal failure (Acute) Urinary retention (Acute) Hyponatremia (Acute) Uncontrolled type 2 diabetes mellitus (Acute) Patient is a 68-year-old gentleman admitted with acute urinary retention. CT of the abdomen and pelvis obtained demonstrated Significant distention of the urinary bladder with bilateral hydronephrosis and hydroureter. Admitted to regular nursing floor Sanchez catheter placed consultation placed to both general surgery as well as urology 1. Acute urinary retention secondary to bladder outlet obstruction Sanchez catheter was placed consult placed to Dr. Coulter with urology his note and recommendations reviewed 2. Acute kidney injury secondary to obstructive uropathy significant improvement in kidney function following relief of patient's urinary retention 3. Diabetes mellitus type 2 uncontrolled with significant hyperglycemia on admission patient started on long-acting insulin 4. Hyponatremia significant on admission attributed to patient hypoglycemia patient's sodium levels normalized 5. Hypokalemia corrected per protocol 6. Questionable rectosigmoid mass based on CT finding consult placed to Dr. Hernandez for possible endoscopic evaluation 7. DVT prophylaxis heparin 8. Obesity with BMI of 38.5 weight loss advised Active Medications Dextrose (D50w Syringe) 0 gm IV X1 PRN; Protocol PRN Reason: Hypoglycemia Glucagon () 1 mg IM .X1 PRN PRN Reason: Hypoglycemia Heparin Sodium (Porcine) (Heparin Na) 5,000 unit SC Q12 [facility] Last Admin: 02/12/19 01:10 Dose: Not Given Documented by: Sodium Chloride () 1,000 mls @ 100 mls/hr IV .Q10H [facility] Last Admin: 02/12/19 05:38 Dose: 100 mls/hr Documented by: Insulin Glargine (Lantus (Bkc)) 40 units SC QHS [facility] Last Admin: 02/11/19 22:02 Dose: 40 u Documented by: Insulin Human Lispro (Humalog Kwikpen (Bkc)) 0 unit SC ACHS [facility]; Protocol Last Admin: 02/12/19 08:07 Dose: Not Given Documented by: Insulin Human Lispro (Humalog Kwikpen (Bkc)) 5 unit SC TIDAC [facility] Last Admin: 02/12/19 08:11 Dose: 5 u Documented by: Sodium Chloride () 10 - 40 ml IV UD PRN PRN Reason: SALINE FLUSH Tamsulosin HCl (Flomax) 0.4 mg PO DAILY@1730 [facility] Last Admin: 02/11/19 18:17 Dose: 0.4 mg Documented by: Clinical Impression(s) from Imaging Studies Abdomen/Pelvis CT 02/11/19 10:29 IMPRESSION: 1. Significant distention of the urinary bladder with bilateral hydronephrosis and hydroureter without evidence of obstructing stone. There is bilateral perinephric fat stranding and edema suggesting inflammation and infection. Recommend placement of Sanchez catheter for decompression of the bladder. 2. There is prominent gaseous distended loops of colon with fecal retention. There appears to be transition point in the rectosigmoid colon with suspicion of wall thickening and underlying mass. Numerous prominent and suspicious pelvic lymph nodes are noted. Electronically Signed: Jaspal Bravo DO at 13:21 EDT Tel , Service support , Code Visit Inpatient E&M: 89049 Subs Hosp L2
[2019-02-12] MEDS: Polyethylene Glycol 3350 BOWEL PREP PO (10:13)
[2019-02-12] MEDS: Bisacodyl 5 MG Tablet 20 MG PO (10:17)
--- NOTE | 2019-02-12 11:00 | CASEMGMT ---
RN SHEKHAR Face to Face with patient for initial transition planning/care coordination assessment. RN CM introduced self and role at [facility]. Patient lying in bed, alert and oriented. Patient willing to participate in assessment and is able to answer all questions appropriately. Care providers, pharmacy, and demographics verified. Patient wishes to discharge home, denies need for home health at this time. Patient states he has no further needs or concerns at this time. CM to follow for discharge planning needs that may arise. PCP: Tung Specialists: none Preferred Pharmacy: [facility] Insurance: [employer] [facility] Prescription Benefit: yes Living Will/HPOA: Yes, son Rufus Ramirez LNOK: , son Living Arrangements: Patient lives with in 2 story home. Patient is independent at home. Transportation: self/ DME/HHC: Patient states he has bipap at home. Patient denies previous HHC. Disposition Plan: Patient to discharge home with family support and follow-up plans in place. Dinora WATTS, RN, CM
[2019-02-12 11:35] LABS: Bedside Glucose 198 mg/dL (70-110)
[2019-02-12 13:42] VITALS: BP 136/73; PULSE 68; RESP 16; TEMP 36.6; O2SAT 96
[2019-02-12] MEDS: Tamsulosin HCl 0.4 MG Capsule PO (17:04)
[2019-02-12 17:16] LABS: Bedside Glucose 258 mg/dL (70-110)
[2019-02-12 19:21] VITALS: BP 140/77; PULSE 68; RESP 20; TEMP 36.4; O2SAT 99
[2019-02-12] MEDS: Heparin Injection (Vial) 5,000 UNIT/ML VIAL 5000 UNIT SC (21:23)
[2019-02-12 21:45] LABS: Bedside Glucose 181 mg/dL (70-110)
[2019-02-13] VITALS (11 sets, daily range): BP systolic 106–150; BP diastolic 63–81; PULSE 60–76; RESP 16–20; TEMP 36.5–37; O2SAT 92–97; BMI 38.5
[2019-02-13] MEDS: 0.9% Normal Saline 1,000 ML 100 ML IV ×2 (02:34→11:14)
[2019-02-13 05:31] LABS: Absolute Lymphocyte Count 1.41 X10^3/uL (0.83-4.51); Basophil# 0.05 X10^3/uL; Basophil% 0.7 % (0-1); Eosinophil# 0.11 X10^3/uL; Eosinophils% 1.5 % (0-5); Hematocrit 34.6 % (40-54); Hemoglobin 11.3 g/dL (13.0-16.5); Lymphocyte # 1.41 X10^3/ul (4.0); Lymphocyte % 18.7 % (19-41); Mean Corp Hgb Conc 32.7 g/dL (32-36); Mean Corpuscular Hgb 28.1 pg (27.0-32.0); Mean Corpuscular Volume 86.1 fL (80-94); Mean Platelet Vol. 10.8 fl (6.2-12.0); Monocyte# 0.86 X10^3/uL; Monocyte% 11.4 % (0-10); NRBC Flagged by Analyzer 0 % (0-5); Neutrophil # 5.03 X10^3/uL (2.7-7.7); Neutrophil % 66.5 % (47-70); Platelet Count 215 K/mm3 (150-450); RBC Distribution Width CV 12.7 % (11.6-14.6); RBC Distribution Width SD 40.2 fl (35.1-43.9); Red Blood Count 4.02 M/mm3 (4.6-6.2); White Blood Count 7.6 K/mm3 (4.4-11.0)
[2019-02-13 05:52] LABS: Anion Gap 6 (5-15); BUN 14 mg/dL (7-18); BUN/Creat Ratio 14.5 RATIO (10-20); Calcium,Total 7.8 mg/dL (8.5-10.1); Chloride 109 mmol/L (98-107); Creatinine, Serum 0.97 mg/dL (0.70-1.30); EST Glomerular Filtration Rate 82 mL/min (>60); Est Glom Filt Rate - Afr Amer 99 mL/min (>60); Estimated Creatinine Clearance 85.92 ml/min; Glucose 139 mg/dL (74-106); Magnesium 2.3 mg/dL (1.6-2.6); Potassium 3.7 mmol/L (3.5-5.1); Sodium Level 144 mmol/L (136-145)
[2019-02-13 06:45] LABS: Bedside Glucose 132 mg/dL (70-110)
--- NOTE | 2019-02-13 07:50 | PCM.PN.HOSP ---
Patient Problems: Active and Suspected Problems Renal failure (Acute) Urinary retention (Acute) Hyponatremia (Acute) Uncontrolled type 2 diabetes mellitus (Acute) Subjective: Patient seen complains of not having had a good rest during the night. He is scheduled to undergo colonoscopy. Creatinine down to 0.97. Objective: GENERAL: cooperative HEENT: Atraumatic; EYES; Anicteric, Normal Conjunctiva NECK; supple, normal thyroid, RESPIRATORY: Diminished to auscultation CARDIOVASCULAR: Regular S1 S2, GI: soft, non-tender, normoactive bowel sounds, : No Renal angle tenderness; mahajan catheter in place EXTREMITIES: No edema, no clubbing, MUSCULOSKELETAL: No Joint Tenderness; NEURO: Awake; no lateralizing signs. SKIN: No Rash PSYCH; Normal affect Vitals/I&O's: Vital Signs Temp Pulse Resp BP Pulse Ox 98.5 F 76 20 H 128/64 H 92 02/13/19 02:22 02/13/19 02:22 02/13/19 02:22 02/13/19 02:22 02/13/19 02:22 Oxygen Delivery Method Room Air Weight: 135.9 kg Body Mass Index (BMI) 38.5 Intake and Output for Last 24 Hours 02/11/19 02/12/19 02/13/19 23:59 23:59 23:59 Intake Total 451 / 451 4046 / 6173 2674 / 2674 Output Total 2800 / 2800 8500 / 9825 2575 / 2575 Balance -2349 / -2349 -4454 / -3652 99 / 99 Laboratory Results 02/12/19 08:04: POC Glucose 88 02/12/19 11:22: POC Glucose 198 H 02/12/19 16:59: POC Glucose 258 H 02/12/19 21:17: POC Glucose 181 H 02/13/19 05:14: WBC 7.6, RBC 4.02 L, Hgb 11.3 L, Hct 34.6 L, MCV 86.1, MCH 28.1, MCHC 32.7, RDW Std Deviation 40.2, RDW Coeff of Argenis 12.7, Plt Count 215, MPV 10.8, Immature Gran % (Auto) 1.200 H, Neut % (Auto) 66.5, Lymph % (Auto) 18.7 L, [place] % (Auto) 11.4 H, Eos % (Auto) 1.5, Baso % (Auto) 0.7, Absolute Neuts (auto) 5.0, Absolute Lymphs (auto) 1.41, Nucleated RBC % 0 02/13/19 05:14: Sodium 144, Potassium 3.7, Chloride 109 H, Carbon Dioxide 29.0, Anion Gap 6, BUN 14, Creatinine 0.97, Estim Creat Clear Calc 85.92, Est GFR (MDRD) Af Amer 99, Est GFR (MDRD) Non-Af 82, BUN/Creatinine Ratio 14.5, Glucose 139 H, Calcium 7.8 L, Magnesium 2.3 02/13/19 06:43: POC Glucose 132 H Current Medications Dextrose (D50w Syringe) 0 gm IV X1 PRN; Protocol PRN Reason: Hypoglycemia Glucagon () 1 mg IM .X1 PRN PRN Reason: Hypoglycemia Heparin Sodium (Porcine) (Heparin Na) 5,000 unit SC Q12 [facility] Last Admin: 02/12/19 21:23 Dose: 5,000 unit Documented by: Sodium Chloride () 1,000 mls @ 100 mls/hr IV .Q10H [facility] Last Admin: 02/13/19 02:34 Dose: 100 mls/hr Documented by: Insulin Glargine (Lantus (Bk)) 20 units SC QHS [facility] Last Admin: 02/12/19 21:24 Dose: 20 u Documented by: Insulin Human Lispro (Humalog Kwikpen (Bk)) 0 unit SC ACHS [facility]; Protocol Last Admin: 02/13/19 06:51 Dose: Not Given Documented by: Polyethylene Glycol (Clearlax For Bowel Prep) 0 bottle PO DAILY@1000 [facility] Last Admin: 02/12/19 10:13 Dose: 1 bottle Documented by: Potassium Chloride (K-Dur) 20 meq PO BIDCM [facility] Last Admin: 02/12/19 17:02 Dose: 20 meq Documented by: Sodium Chloride () 10 - 40 ml IV UD PRN PRN Reason: SALINE FLUSH Tamsulosin HCl (Flomax) 0.4 mg PO DAILY@1730 [facility] Last Admin: 02/12/19 17:04 Dose: 0.4 mg Documented by: Medical Necessity - Tobacco Use Smoking Status: Never smoker Assessment/Plan All Active Problems Renal failure (Acute) Urinary retention (Acute) Hyponatremia (Acute) Uncontrolled type 2 diabetes mellitus (Acute) Patient is a 68-year-old gentleman admitted with acute urinary retention. CT of the abdomen and pelvis obtained demonstrated Significant distention of the urinary bladder with bilateral hydronephrosis and hydroureter. Admitted to regular nursing floor Mahajan catheter placed consultation placed to both general surgery as well as urology 1. Acute urinary retention secondary to bladder outlet obstruction Mahajan catheter was placed consult placed to Dr. Coulter with urology his note and recommendations reviewed 2. Acute kidney injury secondary to obstructive uropathy significant improvement in kidney function following relief of patient's urinary retention this resolved as of 02/13/2019. 3. Diabetes mellitus type 2 uncontrolled with significant hyperglycemia on admission patient started on long-acting insulin 4. Hyponatremia significant on admission attributed to patient hypoglycemia patient's sodium levels normalized 5. Hypokalemia corrected per protocol 6. Questionable rectosigmoid mass based on CT finding consult placed to Dr. Hernandez for possible endoscopic evaluation plan is for patient undergo colonoscopy on 03/02/2019. 7. DVT prophylaxis heparin 8. Obesity with BMI of 38.5 weight loss advised Code Visit Inpatient E&M: 31044 Subs Hosp L2
--- NOTE | 2019-02-13 11:30 | COLBX_PTH ---
PATIENT: PATI COSTA LOC: MS3 U#:[id number] AGE/SX: 68/M ROOM: MS308 RE02/11/[address]: Dr. Rufsu Eubanks MD : 1950 BED: 1 DIS: 02/13/2019 SPEC #: [id number] RECD: 02/13/19 13:19 STATUS: MEHDI REQ #: [id number] LUIS MIGUEL: 02/13/19 11:[address]: Dante Marroquin DEPT: SURGICAL PATHOLOGY RECD BY: Vidal Workman ENTERED: 02/13/19 13:52 SP TYPE: COLON BX OTHR DR: MD Dr. Lacho Orr MD Dr. Mark Elderbrock, MD Dr. Nicholas F Kotsonis, MD Tissues: Sigmoid colon biopsy Procedures: Surgery Specimen Level IV HEADER OPERATION: Colonoscopy (MAC) PRE-OP DIAGNOSIS: Rule out colonic obstruction TISSUE SUBMITTED: Low sigmoid polyp MICROSCOPIC DIAGNOSIS Low sigmoid colon polyp, biopsy: Hyperplastic polyp. Fecal debris. AM:jerri 02/14/19 MICROSCOPIC DESCRIPTION Slides are reviewed. GROSS DESCRIPTION Received in fixative is one container labeled with the patient's name and designated low sigmoid polyp. The specimen consists of multiple irregular fragments of light whyte soft tissue that in aggregate measure 1.5 x 0.5 x <0.1 cm. The specimen is totally submitted in one cassette. / AM:jerri 02/13/19 TC:5 CPT: 62495
--- NOTE | 2019-02-13 13:06 | OP.ENDO_ITS ---
02/13/2019 Alejo Ruby [address] [place] [address] Re : Colonoscopy procedure for [facility] Dear Dr. Ruby This procedure was performed on Wednesday, February 13, 2019. My impressions and recommendations are as follows: Impressions : - Preparation of the colon was fair. - Prostate - left lobe suspicious mass 2 to 6 cm from the anal verge. - One 4 mm polyp in the sigmoid colon, removed with a cold biopsy forceps. Resected and retrieved. - The examination was otherwise normal. - The distal rectum and anal verge are normal on retroflexion view. Recommendations : - Discharge patient to home. - Resume previous diet. - Continue present medications. - Return to my office in 1 week. - Repeat colonoscopy for surveillance based on pathology results. My findings are described in the full procedure note, which is enclosed. If I can be of further assistance, please feel free to contact me at Doctor phone number(s): , Work: . Sincerely, Dante Marroquin MD 02/13/2019 1:06:00 PM This report has been signed electronically.
[2019-02-13 14:01] LABS: Bedside Glucose 129 mg/dL (70-110)
--- NOTE | 2019-02-13 16:02 | PCM.DC ---
- Discharge Diagnoses Current Active Problems: Current Active and Chronic Problems Renal failure (Acute) Urinary retention (Acute) Hyponatremia (Acute) Uncontrolled type 2 diabetes mellitus (Acute) You will use the following diet at home:: Calorie/Carbohydrate Controlled (specify 1200, 1400, etc) - 1800 Your food should be the consistency of: Regular Discharge Activity: Return to Normal Activity Catheter: Sanchez to leg bag Allergies/Adverse Reactions: Allergies atorvastatin [From Lipitor] Allergy (Verified 02/11/19 10:11) Unknown Medications to take at Discharge Insulin Glargine,Hum.rec.anlog [Lantus] 20 unit SQ QHS #0 02/13/19 Tamsulosin HCl [Flomax] 0.4 mg PO DAILY@1730 #60 cap 02/13/19 The following prescriptions were given: Tamsulosin HCl [Flomax] 0.4 mg PO DAILY@1730 #60 cap Transmission Status: Pending to [facility] Primary Care Physician: Alejo Ruby MD [Primary Care Provider] - Please follow up with your Primary Care Physician in: in 5-7 days Test Results: Test results from this visit will be discussed in further detail at your follow-up appointment, if applicable. Please Follow Up With: Lacho Jorge MD When: in 5-7 days Proposed Discharge Date: 02/13/19
--- NOTE | 2019-02-13 16:04 | PCM.DC.SUM ---
Discharge Date and Diagnosis - Problem List Patient Problems: Active and Suspected Problems Renal failure (Acute) Urinary retention (Acute) Hyponatremia (Acute) Uncontrolled type 2 diabetes mellitus (Acute) Date of Admission: 02/11/19 Date of Discharge: 02/13/19 - Primary Discharge Diagnosis Active and Suspected Problems Renal failure (Acute) Urinary retention (Acute) Hyponatremia (Acute) Uncontrolled type 2 diabetes mellitus (Acute) Hospital Course and Treatment Summary of Care Provided: Patient is a 68-year-old gentleman admitted with acute urinary retention. CT of the abdomen and pelvis obtained demonstrated Significant distention of the urinary bladder with bilateral hydronephrosis and hydroureter. Admitted to regular nursing floor Sanchez catheter placed consultation placed to both general surgery as well as urology 1. Acute urinary retention secondary to bladder outlet obstruction Sanchez catheter was placed consult placed to Dr. Jorge with urology his note and recommendations reviewed patient was discharged with a Sanchez catheter with plan for patient to follow-up with urology as outpatient in 5 to 7 days for subsequent care 2. Acute kidney injury secondary to obstructive uropathy significant improvement in kidney function following relief of patient's urinary retention this resolved as of 02/13/2019. 3. Diabetes mellitus type 2 uncontrolled with significant hyperglycemia on admission patient started on long-acting insulin 4. Hyponatremia significant on admission attributed to patient hypoglycemia patient's sodium levels normalized 5. Hypokalemia corrected per protocol 6. Questionable rectosigmoid mass based on CT finding consult placed to Dr. Hernandez for possible endoscopic evaluation plan is for patient undergo colonoscopy on 03/02/2019. Colonoscopy performed demonstrated a suspicious prostatic mass. Was also found to have a 4 mm polyp in the sigmoid colon which was removed with cold biopsy forceps 7. DVT prophylaxis heparin 8. Obesity with BMI of 38.5 weight loss advised Patient Problems: Active and Suspected Problems Renal failure (Acute) Urinary retention (Acute) Hyponatremia (Acute) Uncontrolled type 2 diabetes mellitus (Acute) Objective: GENERAL: cooperative HEENT: Atraumatic; EYES; Anicteric, Normal Conjunctiva NECK; supple, normal thyroid, RESPIRATORY: Diminished to auscultation CARDIOVASCULAR: Regular S1 S2, GI: soft, non-tender, normoactive bowel sounds, : No Renal angle tenderness; Sanchez catheter in place EXTREMITIES: No edema, no clubbing, MUSCULOSKELETAL: No Joint Tenderness; NEURO: Awake; no lateralizing signs. SKIN: No Rash PSYCH; Normal affect - Physical Exam Vital Signs Temp Pulse Resp BP Pulse Ox 97.8 F 60 18 145/81 H 97 02/13/19 13:44 02/13/19 13:45 02/13/19 13:44 02/13/19 13:44 02/13/19 13:44 Oxygen Delivery Method Room Air Weight: 135.9 kg Body Mass Index (BMI) 38.5 Intake and Output for Last 24 Hours 02/11/19 02/12/19 02/13/19 23:59 23:59 23:59 Intake Total 451 / 451 4046 / 6173 3318 / 3318 Output Total 2800 / 2800 8500 / 9825 3325 / 3325 Balance -2349 / -2349 -4454 / -3652 -7 / -7 Laboratory Tests Past 24 Hrs 02/13/19 02/13/19 05:14 05:14 WBC 7.6 RBC 4.02 L Hgb 11.3 L Hct 34.6 L MCV 86.1 MCH 28.1 MCHC 32.7 RDW Std Deviation 40.2 RDW Coeff of Argenis 12.7 Plt Count 215 MPV 10.8 Immature Gran % (Auto) 1.200 H Neut % (Auto) 66.5 Lymph % (Auto) 18.7 L [place] % (Auto) 11.4 H Eos % (Auto) 1.5 Baso % (Auto) 0.7 Absolute Neuts (auto) 5.0 Absolute Lymphs (auto) 1.41 Nucleated RBC % 0 Sodium 144 Potassium 3.7 Chloride 109 H Carbon Dioxide 29.0 Anion Gap 6 BUN 14 Creatinine 0.97 Estim Creat Clear Calc 85.92 Est GFR (MDRD) Af Amer 99 Est GFR (MDRD) Non-Af 82 BUN/Creatinine Ratio 14.5 Glucose 139 H Calcium 7.8 L Magnesium 2.3 POC Glucose 02/13/19 02/13/19 02/12/19 13:51 06:43 21:17 POC Glucose 129 H 132 H 181 H 02/12/19 16:59 POC Glucose 258 H Discharge Diet: 1800 Calorie Control Diet Discharge Activity: Return to Normal Activity Catheter: Sanchez to leg bag Home Medications: Medications to take at Discharge Insulin Glargine,Hum.rec.anlog [Lantus] 20 unit SQ QHS #0 02/13/19 Tamsulosin HCl [Flomax] 0.4 mg PO DAILY@1730 #60 cap 02/13/19 Following Prescrptions Were Given to Patient: Tamsulosin HCl [Flomax] 0.4 mg PO DAILY@1730 #60 cap Transmission Status: Pending to [facility] Primary Care Physician: Alejo Ruby MD [Primary Care Provider] - Please follow up with your Primary Care Physician in: in 5-7 days Please Follow Up With: Lacho Jorge MD When: in 5-7 days Disposition: Home Minutes spent on discharge:: 45 Patient Condition:: Stable Medical Necessity - Tobacco Use Smoking Status: Never smoker Meaningful Use Info Meaningful Use Diagnoses (Choose all that apply): None applicable Code Visit Inpatient E&M: 75555 Disch Hosp
--- NOTE | 2019-02-13 19:33 | PCM.PN.SRG ---
Subjective: no complaints of abdominal pain - Physical Exam General: Alert, Oriented x3, Cooperative Lungs: Clear to auscultation, Normal air movement Cardiovascular: Regular rate, No murmurs Abdomen: Bowel Sounds Present, Soft, Non Tender Vital Signs Temp Pulse Resp BP Pulse Ox 98.2 F 68 18 150/76 H 96 02/13/19 16:46 02/13/19 16:46 02/13/19 16:46 02/13/19 16:46 02/13/19 16:46 Oxygen Delivery Method Room Air Weight: 135.9 kg Body Mass Index (BMI) 38.5 Intake and Output for Last 24 Hours 02/11/19 02/12/19 02/13/19 23:59 23:59 23:59 Intake Total 451 / 451 4046 / 6173 3318 / 3318 Output Total 2800 / 2800 8500 / 9825 3325 / 3325 Balance -2349 / -2349 -4454 / -3652 -7 / -7 Laboratory Tests Past 24 Hrs 02/13/19 02/13/19 05:14 05:14 WBC 7.6 RBC 4.02 L Hgb 11.3 L Hct 34.6 L MCV 86.1 MCH 28.1 MCHC 32.7 RDW Std Deviation 40.2 RDW Coeff of Argenis 12.7 Plt Count 215 MPV 10.8 Immature Gran % (Auto) 1.200 H Neut % (Auto) 66.5 Lymph % (Auto) 18.7 L [place] % (Auto) 11.4 H Eos % (Auto) 1.5 Baso % (Auto) 0.7 Absolute Neuts (auto) 5.0 Absolute Lymphs (auto) 1.41 Nucleated RBC % 0 Sodium 144 Potassium 3.7 Chloride 109 H Carbon Dioxide 29.0 Anion Gap 6 BUN 14 Creatinine 0.97 Estim Creat Clear Calc 85.92 Est GFR (MDRD) Af Amer 99 Est GFR (MDRD) Non-Af 82 BUN/Creatinine Ratio 14.5 Glucose 139 H Calcium 7.8 L Magnesium 2.3 POC Glucose 02/13/19 02/13/19 02/12/19 13:51 06:43 21:17 POC Glucose 129 H 132 H 181 H Medical Necessity - Tobacco Use Smoking Status: Never smoker Assessment/Plan All Active Problems Renal failure (Acute) Urinary retention (Acute) Hyponatremia (Acute) Uncontrolled type 2 diabetes mellitus (Acute) urinary retention, prostate cancer versus significant benign prostatic hypertrophy, questionable colonic transition point. The patient was seen by Dr. Jorge. He'll follow up in Dr. Jorge's office for ultrasound-guided prostate exam and/or biopsy. The patient will have a Sanchez catheter maintained until that time. colonoscopy demonstrated one small polyp at 30 cm and no other specific abnormalities. Palpable mass on digital rectal exam was irregular hard felt to be consistent with prostate cancer. The patient's follow-up my office in one week time.
== END 2019-02-13 17:00 | disposition home or self-care (01) | DRG 699 ==
LOC: ED 14:11 → MS3 14:31
PROVIDERS: Surgery; Admitting Provider Family Medicine; Emergency Provider Emergency Medicine; Family Provider Family Medicine; PCP Family Medicine; Referring Provider Family Medicine; Visit Provider Internal Medicine
PROC: 0DJD8ZZ Inspection of Lower Intestinal Tract, Via Natural or Artificial Opening Endoscopic (ICD-10-PCS; CPT 45378; principal; 2019-02-13 11:25)
DX: N32.0 Bladder-neck obstruction (principal); N17.9 Acute kidney failure, unspecified; E87.1 Hypo-osmolality and hyponatremia; N13.30 Unspecified hydronephrosis; Z79.4 Long term (current) use of insulin; E11.65 Type 2 diabetes mellitus with hyperglycemia; E66.01 Morbid (severe) obesity due to excess calories; Z68.38 Body mass index [BMI] 38.0-38.9, adult; K63.5 Polyp of colon; R33.8 Other retention of urine; E87.6 Hypokalemia
CPT/HCPCS: 36415; 51702; 74019; 74176; 80048; 80076; 81001; 82962; 83735; 84153; 85025; 88305; 93005; 97802; 99285; J7030; A4216; G0103; J2405

== ENCOUNTER 2019-02-28 12:40 | Day surgery (SDC) | payer MEDICARE, SELFPAY ==
[2019-02-13 10:26] VITALS: BMI 38.5
[2019-02-21 11:20] VITALS: BP 125/67; PULSE 69; RESP 16; TEMP 36.4; O2SAT 98; BMI 34.7
[2019-02-28] VITALS (7 sets, daily range): BP systolic 96–131; BP diastolic 60–86; PULSE 57–75; RESP 16–18; TEMP 36.2–37.1; O2SAT 94–98; BMI 34.7
--- NOTE | 2019-02-28 | IMM_PTH ---
PATIENT: PATI COSTA LOC: [facility] [place] U#:[id number] AGE/SX: 68/M ROOM: RE02/28/[address]: Dr. Lacho Jorge MD : 1950 BED: DIS: 03/01/2019 SPEC #: [id number] RECD: 03/02/19 11:16 STATUS: MEHDI REQ #: [id number] LUIS MIGUEL: 02/28/19 00:[address]: Lacho Jorge DEPT: IMMUNOHISTOCHEMISTRY RECD BY: Mónica Young ENTERED: 03/02/19 11:18 SP TYPE: IMMUNO OTHR DR: Dr. Alejo Ruby MD Tissues: PROSTATE BIOPSY Procedures: CK20 (add) CK7 (add) 34BE12 (add) P40 (add) PSAP (add) AE1-3 (initial) PHYSICIAN & INSTITUTION [place] [id number] SPECIMEN INFORMATION: Tissue Source: B. Prostate tissue chips Clinical Info: Obstruction and elevated PSA Specimen Number: [id number] CPT code: 33067, 32513 x5 METHODOLOGY: Deparaffinized sections of prefer/formalin-fixed tissue or PAP/DQ stained slides are incubated with monoclonal/polyclonal antibodies/oligonucleotide probes. Localization is made via biotin free immunoperoxidase method. Appropriate controls are performed and reacted as expected. Results on target cell population are indicated in the following table: RESULTS: ANTIBODY / CLONE RESULT Block B3 AE1-3 (AE1/AE3/PCK26) positive, focal CK7 (OV-TL12/30) positive, focal CK20 (KS20.8) negative 34BE12 (34BE12) negative P40 (BC28) negative PSAP (PASE/4LJ) positive These tests were developed and their performance characteristics determined by [facility]. They may not have been cleared or approved by the U.S. Food and Drug Administration. The FDA has determined that such clearance or approval is not necessary. INTERPRETATION: B. Prostate TURP: - Consistent with adenocarcinoma AM:shira 03/02/19
--- NOTE | 2019-02-28 | PROSB_PTH ---
PATIENT: PATI COSTA LOC: [facility] [place] U#:[id number] AGE/SX: 68/M ROOM: RE02/28/[address]: Dr. Lacho Jorge MD : 1950 BED: DIS: 03/01/2019 SPEC #: [id number] RECD: 02/28/19 15:06 STATUS: MEHDI REMarcel #: [id number] LUIS MIGUEL: 02/28/19 00:[address]: Lacho Jorge DEPT: SURGICAL PATHOLOGY RECD BY: Rey Fernandez ENTERED: 03/01/19 08:20 SP TYPE: PROST BX OTHR DR: Dr. Alejo Ruby MD Tissues: A - Prostate, NOS B - Prostate, NOS Procedures: Surgery Specimen Level IV HEADER OPERATION: Cysto, TUR, prostate, Olympus PRE-OP DIAGNOSIS: Obstruction and elevated PSA TISSUE SUBMITTED: A. Prostate tissue biopsy, B. Prostate tissue chips MICROSCOPIC DIAGNOSIS A. Prostate, needle corer biopsy: Adenocarcinoma: [place] grade: 7 (3+4) Cores involved: 3/3 Tissue involved: 60% Greatest tumor length:13 mm Perineural invasion: present B. Prostate, transurethral resection: Minute focus of adenocarcinoma. Claude grade 7 (3+4) Cores involved: 1 Greatest tumor length: 2 mm AM:joaquin 03/02/19 COMMENT Immunohistochemistry ([id number]) supports the above diagnosis. Case has been reviewed in consultation with Dr. Garcia who concurs with the above diagnosis. IDC:SJ MICROSCOPIC DESCRIPTION Slides are reviewed. GROSS DESCRIPTION A. Received is one container labeled with the patient's name and designated prostate tissue. The specimen consists of 3 cores of light whyte, soft tissue. Each core has an average length of 1.5 cm and maximal diameter is less than 0.1 cm. The specimen is submitted in its entirety in 1 cassette. B. Received is one container labeled with the patient's name and designated prostate tissue chips. The specimen consists of multiple irregular fragments of pink-whyte, rubbery, soft tissue that in aggregate weigh 5.5 gm and measure in aggregate 6 x 3.5 x 0.5 cm. The specimen is totally submitted in 4 cassettes. /AM:joaquin 03/01/19 TC: 0 CPT: 52041 x2
[2019-02-28] MEDS: Lactated Ringers 1,000 ML 100 ML IV (13:18)
[2019-02-28 13:20] LABS: Bedside Glucose 128 mg/dL (70-110)
[2019-02-28] MEDS: Cefazolin 2 GM in 0.9% Normal Saline 100 ML IV (13:47)
--- NOTE | 2019-02-28 13:53 | PCM.DC.URO ---
Discharge Diet: Light diet - advance as tolerated Discharge Activity: Return to Normal Activity Call your doctor if your incision/area has: Continuous Slow Oozing, Sudden Increased Bleeding, Increased Pain/ Swelling, Increased Redness, Foul Smelling Discharge, Swelling at the incision site Suture Line Care: Avoid Pulling/Pushing, Avoid Pinching/Bending Allergies/Adverse Reactions: Allergies atorvastatin [From Lipitor] Allergy (Verified 02/21/19 11:04) Unknown metformin Adverse Reaction (Verified 02/21/19 11:04) Nausea/Vom/Diarrhea Medications to take at Discharge Tamsulosin HCl [Flomax] 0.4 mg PO DAILY@1730 #60 cap 02/13/19 Ciprofloxacin [Cipro] 500 mg PO DAILY 02/21/19 Insulin Glargine,Hum.rec.anlog [Lantus] 40 unit SQ QHS 02/21/19 [place]-3 Fatty Acids/Fish Oil [Fish Oil 1,000 mg Capsule] 1 ea PO DAILY 02/21/19 Ciprofloxacin [Cipro] 500 mg PO BID #14 tab 02/28/19 Ibuprofen 600 mg PO Q6H PRN PRN #20 tab 02/28/19 The following prescriptions were given: Ciprofloxacin [Cipro] 500 mg PO BID #14 tab Prescription Printed Ibuprofen 600 mg PO Q6H PRN PRN #20 tab PRN Reason: Pain Prescription Printed Primary Care Physician: Alejo Ruby MD [Primary Care Provider] - Test Results: Test results from this visit will be discussed in further detail at your follow-up appointment, if applicable. Please Follow Up With: Lacho Jorge MD When: in 2 weeks, please call to make an appointment. Proposed Discharge Date: 02/28/19
--- NOTE | 2019-02-28 14:22 | PCM.OPRPT ---
Report of Operation Date of Procedure: 02/28/19 Pre-Operative Diagnosis: BPH with obstruction elevated PSA prostatic nodule Post-Operative Diagnosis: The same Surgery/Procedure Performed:: Transurethral resection of the prostate and transrectal prostate biopsy Description of Surgical Findings:: 68-year-old male who has not been able to urinate and 3 urinary retention on exam he has a very firm prostate concerning for cancer his PSA is also fairly elevated. He is failed voiding trial so today we will proceed with a transurethral resection of the prostate and also can do a transrectal prostate biopsy because of the concern for possible cancer. 68-year-old male taken back to the operating room at the smooth induction of general anesthesia he was placed in dorsolithotomy position, the penis and testicles were prepped and draped in usual sterile fashion, went into the bladder with a 26 [place] continuous-flow resectoscope the entire urethra was normal pendulous urethra normal bulbar urethra normal sphincter was intact identified the verumontanum I then switched over to the resectoscope using a large loop I marked out the edge of the resection distal and then went to the bladder neck and then resected at the 6:[address] on the right lobe all the way up to the 12:00 and then on the left lobe all the way to the 12:00 made sure that I did not resect past my marked resection site right and for the verumontanum after this was all resected back looked back to the verumontanum the sphincter was intact very carefully resected the apical tissue we did a flow test had a nice good flow we then Ellik out all the chips of the bladder obtain hemostasis but a catheter bladder continues bladder irrigation I then double gloved and the transrectal guided prostate biopsy multiple biopsies on both the left and right side this was all sent off as one specimen. We then had the specimen the left side specimen the right side we had the prostate chips as a specimen catheter was placed on continuous bladder irrigation urine is fairly clear he was taken back to PACU good condition. Type of Anesthesia:: General Drains: mahajan 22fr - Admit VTE Documentation VTE Present on Admission: No VTE Mechan Device Prophylaxis: SCD's
[2019-02-28 14:46] LABS: Bedside Glucose 134 mg/dL (70-110)
[2019-02-28] MEDS: Acetaminophen 325 MG Tablet PO (15:50)
[2019-02-28] MEDS: 0.9% Normal Saline 1,000 ML 75 ML IV (15:50)
[2019-02-28 16:31] LABS: Bedside Glucose 246 mg/dL (70-110)
[2019-02-28] MEDS: Tamsulosin HCl 0.4 MG Capsule PO (17:16)
[2019-02-28] MEDS: Ciprofloxacin 500 MG Tablet PO (22:07)
[2019-02-28] MEDS: oxyCODONE 5 MG Tablet PO (22:07)
[2019-03-01 00:36] LABS: Bedside Glucose 253 mg/dL (70-110)
[2019-03-01 02:17] VITALS: BP 120/70; PULSE 62; RESP 16; TEMP 36.9; O2SAT 96
[2019-03-01] MEDS: 0.9% Normal Saline 1,000 ML 75 ML IV (05:11)
[2019-03-01 06:25] LABS: Hemoglobin 12.1 g/dL (13.0-16.5); Mean Corp Hgb Conc 31.8 g/dL (32-36); Mean Corpuscular Hgb 28.2 pg (27.0-32.0); Mean Corpuscular Volume 88.6 fL (80-94); Mean Platelet Vol. 9.8 fl (6.2-12.0); Platelet Count 245 K/mm3 (150-450); RBC Distribution Width CV 12.6 % (11.6-14.6); Red Blood Count 4.29 M/mm3 (4.6-6.2); White Blood Count 9.9 K/mm3 (4.4-11.0)
[2019-03-01 06:42] LABS: Anion Gap 7 (5-15); BUN 14 mg/dL (7-18); BUN/Creat Ratio 13.7 RATIO (10-20); Calcium,Total 8.5 mg/dL (8.5-10.1); Chloride 105 mmol/L (98-107); Creatinine, Serum 1.02 mg/dL (0.70-1.30); EST Glomerular Filtration Rate 77 mL/min (>60); Est Glom Filt Rate - Afr Amer 93 mL/min (>60); Estimated Creatinine Clearance 83.99 ml/min; Glucose 141 mg/dL (74-106); Potassium 4.5 mmol/L (3.5-5.1); Sodium Level 140 mmol/L (136-145)
[2019-03-01 06:45] LABS: Bedside Glucose 152 mg/dL (70-110)
[2019-03-01 08:30] VITALS: BP 121/72; PULSE 66; RESP 16; TEMP 36.6; O2SAT 94
[2019-03-01] MEDS: Pantoprazole Sodium 40 MG Tablet PO (08:40)
[2019-03-01] MEDS: Docusate Sodium 100 MG Capsule PO (08:40)
[2019-03-01] MEDS: Ciprofloxacin 500 MG Tablet PO (08:40)
[2019-03-01 14:50] VITALS: BP 105/76; PULSE 65; RESP 16; TEMP 36.8; O2SAT 93
[2019-03-01 16:00] VITALS: BP 135/77; PULSE 63; RESP 16; TEMP 36.4; O2SAT 97
== END 2019-03-01 16:27 | disposition home or self-care (01) ==
LOC: SDC 12:41 → AC 12:47 → MS3 14:19
PROVIDERS: Family Provider Family Medicine; PCP Family Medicine; Referring Provider Urology; Visit Provider Urology
PROC: (CPT 52630; principal; 2019-02-28 14:45)
PROC: (CPT 55700; 2019-02-28 14:45)
DX: C61 Malignant neoplasm of prostate (principal); N40.1 Benign prostatic hyperplasia with lower urinary tract symptoms; N13.8 Other obstructive and reflux uropathy; R33.8 Other retention of urine; R97.20 Elevated prostate specific antigen [PSA]; G47.30 Sleep apnea, unspecified; M54.9 Dorsalgia, unspecified; R63.4 Abnormal weight loss
CPT/HCPCS: 52630; 55700; 36415; 80048; 82962; 85027; 88305; 88341; 88342; J7030; J7120; J2405

== ENCOUNTER 2019-03-06 20:02 | Emergency (ER) | payer MEDICARE, SELFPAY ==
[2019-02-28 15:11] VITALS: BMI 34.7
[2019-03-06 20:02] VITALS: BP 136/87; PULSE 78; RESP 16; TEMP 37.1; O2SAT 97; BMI 36.1
--- NOTE | 2019-03-06 21:45 | ED.VIS.GEN ---
History of Present Illness Chief Complaint: Complaint Informant: Patient Onset: Today Context: Gradual Onset Current Severity: Severe Maximum Severity: Severe Narrative: She is a 68-year-old male with history of BPH and urinary retention, 1 week status post TURP presenting with urinary retention. Patient states he had his Sanchez catheter removed by his urologist today. He had been instructed to return to his urologist office if he could not pee by 4 PM however the patient did not follow these directions. Patient states at 3 PM he was able to pass a small amount of urine but still feels that he has to pee pretty significantly. Patient describes a sensation of fullness and pressure in his lower abdomen. Patient then came to the emergency room for his discomfort. Patient states he is otherwise been feeling well. He denies any blood in his urine over the past few days. He is not on any anticoagulation. He denies any other complaints at this time. Past Medical History - Allergies and Home Meds Allergies/Adverse Reactions: Allergies atorvastatin [From Lipitor] Allergy (Verified 02/21/19 11:04) Unknown metformin Adverse Reaction (Verified 02/21/19 11:04) Nausea/Vom/Diarrhea Primary Care Physician: Alejo Ruby MD [Primary Care Provider] - Surgical History: herniorrhaphy, TURP Smoking Status: Never smoker - Family History Maternal Family History: Reports: Cancer Paternal Family History: Reports: No pertinent history Review of Systems All systems negative except as indicated Genitourinary: Reports: - - Inability to urinate. Denies: Dysuria, Hematuria Physical Exam Vital Signs/Narrative: Vital Signs Temp Pulse Resp BP Pulse Ox 03/06/19 20:02 98.7 F 78 16 136/87 H 97 Inital Vital Signs reviewed: Yes General: Well nourished, Well developed, No Acute Distress Head: Normocephalic, Atraumatic Eyes: Perrl, EOMI ENT: Moist mucous membranes, No rhinorrhea Neck: Supple, Nontender Cardiovascular: Regular rate, Regular rhythm, No murmurs Respiratory: No distress, CTA bilaterally, Chest nontender Abdomen: Soft, Nontender, Normal bowel sounds, Tender - suprapubic, - - Mildly distended abdomen with palpable bladder in the lower abdomen, no peritoneal signs Back: Nontender, Normal Inspection. Negative for: CVA tenderness Extremities: Nontender, No edema Skin: Normal color, No rash Neurological: Alert, Oriented x3, Cranial nerves II-XII grossly intact, Normal Strength, Normal Sensation Psychological: Normal affect, Normal Mood Diagnostic/Tx/Re-eval - Medical Decision Making Laboratory Data 03/06/19 22:10 Urine Color Yellow Urine Clarity Clear Urine pH 7.0 Ur Specific [place] 1.010 Urine Protein 30 H Urine Glucose (UA) Normal Urine Ketones Negative Urine Occult Blood 250 H Urine Nitrite Negative Urine Bilirubin Negative Urine Urobilinogen Normal Ur Leukocyte Esterase Negative Urine RBC 0-5 SEEN Urine WBC 0 SEEN Ur Squamous Epith Cells 0 SEEN Urine Bacteria 0 SEEN Urine Mucus 0 SEEN Evaluated for acute urinary retention. He appears nontoxic and in no acute distress. As he had his Sanchez catheter removed today, I am not concerned for acute kidney injury at this time. I did not check a BMP. Sanchez catheter is placed back in and patient will follow up with his urologist tomorrow. Patient does not have findings consistent with urinary tract infection and impaction not indicated. Patient is counseled on signs and symptoms requiring return to the emergency room. Patient verbalizes agreement and understand this plan. Patient discharged home in stable and improved condition. ED Disposition - Plan for ED Patient: Disposition: Home or Assisted Living Diagnosis: Urinary retention Instructions: URINARY RETENTION, Male Referrals: Alejo Ruby MD [Primary Care Provider] - Lacho Jorge MD [STAFF PHYSICIAN] - 1 Day
[2019-03-06] MEDS: Lidocaine Jelly 2% 20 ML Syringe (URO-JET) 20 APPLIC TOPICAL (22:05)
[2019-03-06 22:13] LABS: Bacteria 0 SEEN /hpf (None Seen); Mucous, Urine 0 SEEN /hpf (<or=2+); Squamous Epithelial Cells - UA 0 SEEN /hpf (0-5); White Blood Cells 0 SEEN /hpf (0-5)
[2019-03-06 22:18] LABS: Color, Urine Yellow (Yellow); Glucose, Dipstick Normal (Normal); Ketone-Dipstick Negative (Negative); Leukocyte Esterase-Dipstick Negative /ul (Negative); Nitrite-Dipstick Negative (Negative); Occult Blood-Urine 250 /ul (Negative); Protein-Dipstick 30 mg/dl (Negative); Urine Bilirubin Dipstick Negative (Negative); Urine Clarity Clear (Clear); Urine Urobilinogen Normal (Normal)
[2019-03-06 22:27] LABS: Red Blood Cells-Urine 0-5 SEEN /hpf (0-5)
[2019-03-06 22:49] VITALS: BP 131/71; PULSE 82; RESP 16; O2SAT 99
== END 2019-03-06 22:49 | disposition home or self-care (01) ==
PROVIDERS: Emergency Provider Emergency Medicine; Family Provider Family Medicine; PCP Family Medicine
DX: N40.1 Benign prostatic hyperplasia with lower urinary tract symptoms (principal); R33.8 Other retention of urine
CPT/HCPCS: 51702; 81001; 99283

== ENCOUNTER → 2019-03-09 07:29 | Outpatient (CLI) | payer MEDICARE, SELFPAY ==
[2019-02-28 15:11] VITALS: BMI 34.7
[2019-03-06 20:02] VITALS: BMI 36.1
--- NOTE | 2019-03-09 07:31 | NM_ITS ---
CLINICAL: 68-year-old male with reported history of carcinoma of the prostate. WHOLE BODY 99m Tc MDP RADIONUCLIDE BONE SCINTIGRAPHY COMPARISON: CT of the abdomen-pelvis report 02/11/2019 FINDINGS: Following the intravenous administration of 22.2 mCi of 99m Tc MDP, whole body bone images reveal: 1. Increased radiopharmaceutical concentration is identified in the right scapula in two separate locations, right iliac wing, the seventh thoracic vertebra posteriorly on the left and right, the left posterior ninth rib, heterogeneously defined in the proximal-distal sternum. 2. Facilitated tracer concentration is noted in the acromioclavicular compartments of both shoulders, right knee, bilateral ankle articulations. 3. The remaining skeletal structures are scintigraphically unremarkable with normal-appearing renal images and urinary bladder activity identified. NM/Bone Scan Whole Body IMPRESSION: 1. The increase in radiopharmaceutical concentration identified in the right scapula, right iliac wing, seventh thoracic vertebra, left posterior ninth rib, proximal-distal sternum likely represent skeletal metastatic disease. Plain film radiography correlation may be of benefit in the region of the right scapula, right iliac wing and seventh thoracic vertebra. 2. 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 Electronically Signed: Dante Rogel DO at 23:05 EDT Tel , Service support ,
== END ==
PROVIDERS: Family Provider Family Medicine; PCP Family Medicine; Referring Provider Urology; Visit Provider Urology
DX: C61 Malignant neoplasm of prostate (principal)
CPT/HCPCS: 78306

== ENCOUNTER → 2019-11-01 11:30 | Outpatient (CLI) | payer MEDICARE, SELFPAY | PROVIDERS: PCP Family Medicine; Referring Provider Urology; Visit Provider Urology | DX: R82.998 Other abnormal findings in urine (principal) | CPT/HCPCS: 87077; 87086; 87088; 87186 ==

== ENCOUNTER 2023-01-12 09:38 | Emergency (ER) | payer MEDICARE, SELFPAY ==
[2023-01-12 09:39] VITALS: BP 174/87; PULSE 76; RESP 16; TEMP 36.2; O2SAT 98; BMI 39.9
[2023-01-12 09:45] VITALS: BP 186/93; PULSE 75; RESP 20; O2SAT 97
--- NOTE | 2023-01-12 09:59 | EDS_ITS ---
HPI History of Present Illness Chief Complaint: Chest Pain Informant: patient Onset/Context/Timing Onset: Yesterday (at 1500) Activity at onset: sudden and onset Timing: Continuous Quality: Positive for Pain (needle) Location: Right Chest (radiating down RUE) Current Severity: Moderate Maximum Severity: Moderate Worsened By: Nothing; Not Worsened By Exertion, Movement of Arm, Movement of Torso, Breathing or Coughing Narrative Narrative: 72-year-old male presents with needle-like right-sided chest pain behind his breast but feels like it is on the inside that has been persistent since around 19 hours prior to presentation. He states he has had this pain all my life but only for brief periods of time, and this has been more persistent. He had an episode that lasted a while last year and ended up seeing cardiology getting a stress test that was negative. He has no history of coronary disease that he knows of. He has no history of thromboembolic disease. 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 He cannot make it worse by moving, changing position, taking deep breaths, or eating. He currently is being treated with a hormonal therapy for metastatic prostate cancer, metastatic to bone. [facility] Medical History Diabetes mellitus Metastasis Prostate CA Home Medications tamsulosin 0.4 mg capsule 0.4 mg PO DAILY@1730 #60 caps 02/13/19 [Rx Last Taken Unknown] ciprofloxacin HCl 500 mg tablet 500 mg PO DAILY 02/21/19 [History Last Taken Unknown] insulin glargine 100 unit/mL subcutaneous solution 40 unit SQ QHS 02/21/19 [History Last Taken Unknown] omega-3 fatty acids-fish oil 340 mg-1,000 mg capsule 1 ea PO DAILY 02/21/19 [History Last Taken Unknown] ciprofloxacin HCl 500 mg tablet 500 mg PO BID #14 tabs 02/28/19 [Rx Last Taken Unknown] ibuprofen 600 mg tablet 600 mg PO Q6H PRN PRN Pain #20 tabs 02/28/19 [Rx Last Taken Unknown] pantoprazole 40 mg tablet,delayed release 40 mg PO DAILY #14 tabs 07/12/23 [Rx Last Taken Unknown] Allergy/AdvReac Type Severity Reaction Status Date / Time atorvastatin [From Lipitor] Allergy Unknown Verified 01/12/23 09:41 metformin AdvReac Nausea/Vom/ Verified 01/12/23 09:41 Diarrhea Social History Smoking Status: Never smoker ROS ROS ED Constitutional Constitutional ED: Denies chills or fever(s) Eyes Eyes: Denies change in vision or diplopia ENT ENT ED: Denies rhinorrhea or sore throat Cardiovascular Cardiovascular: Reports chest pain; Denies palpitations Respiratory/Chest Respiratory/Chest: Denies cough or dyspnea Gastrointestinal Gastrointestinal: Denies abdominal pain, diarrhea, nausea or vomiting Genitourinary Genitourinary ED: Denies dysuria, hematuria or urinary frequency Musculoskeletal Musculoskeletal: Reports other Details: RUE pain, no leg pain or swelling ; Denies back pain or neck pain Integumentary Denies abscess or rash Neurologic Neurologic: Denies headache(s), paresthesias or weakness Psychiatric Psychiatric: Denies anxiety or suicidal thoughts EXAM Physical Exam Const Vital Signs: 01/12/23 09:39 01/12/23 09:45 01/12/23 09:45 Temperature 97.1 F L Temperature Source Oral Pulse Rate 76 75 Respiratory Rate 16 20 H Respiratory Effort Normal Non-Labored Blood Pressure 174/87 H 186/93 H Blood Pressure Mean 116 124 Pulse Ox 98 97 Oxygen Delivery Method Room Air Room Air Positive well nourished, well developed and obese General Appearance ED: well developed and NAD Nutritional Appearance: obese HEENT Reports moist mucous membranes normocephalic and atraumatic Eyes PERRL and EOMs intact bilaterally Neck full ROM and supple Chest Wall inspection of chest normal and palpation of chest normal Chest Narrative: No reproducible tenderness in the area of pain, no breast tenderness, no crepitus or subcutaneous emphysema. Resp normal respiratory effort and clear to auscultation bilaterally Cardio regular rate, regular rhythm and no murmurs Rate: Negative for tachycardic GI non-tender and non-distended Auscultation: normoactive bowel sounds Palpation: soft Back/Spine no CVA tenderness General Back: other FROM Extremity normal to inspection General Extremety ED: Negative for edema, pulses abnormal or tenderness General Extremity: Negative for edema or pulses abnormal Neuro oriented x3, CN's II-XII intact bilaterally and no sensory deficits noted Sensorium / Orientation: awake and alert Motor Exam: strength 5/5 throughout Psych mental status grossly normal Skin no rashes or lesions noted and no wounds Heart Score History: Slightly/Non-Suspicious ECG: Normal Age: >/= 65 years Risk Factors: 1 or 2 Risk Factors Troponin: </= Normal Limit Score: 3 MDM MDM MDM Narrative Medical decision making narrative: This is not likely to be cardiac in etiology, obtained a troponin given that he has had constant unrelenting discomfort for 19 hours, in order to rule out acute coronary syndrome and it is negative. Chest x-ray 2 views of my interpretation negative for any acute, radiology in agreement. Cannot use the PERC rule since he is over the age of 50, so given the fact that he has been having this for a long time and I think it is very unlikely to be a pulmonary embolus, he does have metastatic prostate cancer and is at risk for PE, so we did obtain a D- dimer. That is negative, below the low range, well within normal limits, which essentially rules out acute pulmonary embolus. After the GI cocktail and aspirin he was given, the patient feels much better. I am going to place him on a PPI for 2 weeks and refer him to his primary care doctor, I do not think he needs to be admitted, his heart score is high because of his age and a history of documented coronary disease, but I do not think this is cardiac in etiology and they are agreeing in that plan. Lab Data Attestation: I reviewed the patient's lab results. Labs: Laboratory Results - last 24 hr 01/12/23 01/12/23 01/12/23 09:55 09:59 10:55 WBC 7.5 RBC 4.93 Hgb 14.3 Hct 43.3 MCV 87.8 MCH 29.0 MCHC 33.0 RDW Std Deviation 46.3 H RDW Coeff of Argenis 14.5 Plt Count 228 MPV 10.6 Immature Gran % (Auto) 0.700 Neut % (Auto) 60.9 Lymph % (Auto) 26.0 Waller % (Auto) 8.5 Eos % (Auto) 2.8 Baso % (Auto) 1.1 H Absolute Neuts (auto) 4.6 Absolute Lymphs (auto) 1.95 Nucleated RBC % 0 D-Dimer Quant (PE/DVT) < 0.27 L Sodium 135 L Potassium 4.5 Chloride 104 Carbon Dioxide 23.0 Anion Gap 8 BUN 15 Creatinine 1.16 Estim Creat Clear Calc 69.81 Est GFR (MDRD) Af Amer 80 Est GFR (MDRD) Non-Af 66 BUN/Creatinine Ratio 12.9 Glucose 172 H Calcium 9.3 Troponin I High Sens 7 Radiography Diagnostic Testing: Clinical Impression(s) from Imaging Studies Chest X-Ray 01/12/23 10:11 IMPRESSION: The lungs are clear. Prominence of the central pulmonary arteries. Electronically Signed: Lalo Ryan MD at 10:47 EDT , Rhythm Strip Rhythm Strip: Sinus Rhythm Rate: 75 Ectopy: None EKG Initial EKG: Attestation: I personally reviewed and interpreted this EKG as follows: Interpretation: Sinus Rhythm and No Acute Injury Pattern Comments: Normal EKG Discharge Plan Triage Chief Complaint: Chest Pain ED Provider: Braulio Abbasi Dx/Rx/DC Orders Clinical Impression: Non-cardiac chest pain Instructions: ED Chest Pain, Noncardiac Prescriptions: New pantoprazole 40 mg tablet,delayed release (DR/EC) 40 mg PO DAILY Qty: 14 0RF No Action tamsulosin 0.4 MG capsule 0.4 mg PO DAILY@1730 Qty: 60 0RF omega-3 fatty acids-fish oil 1 EACH capsule 1 ea PO DAILY insulin glargine 100 UNIT/ML solution 40 unit SQ QHS ciprofloxacin HCl 500 MG tablet 500 mg PO DAILY Rx Instructions: DAY BEFORE DAY OF AND DAY AFTER PROCEDURE ciprofloxacin HCl 500 MG tablet 500 mg PO BID Qty: 14 0RF ibuprofen 600 MG tablet 600 mg PO Q6H PRN PRN (Reason: Pain) Qty: 20 0RF Primary Care Provider: Alejo Ruby Referrals: Alejo Ruby MD [Primary Care Provider] - 1-2 Weeks Disposition Disposition: Home, Self Care
--- NOTE | 2023-01-12 10:00 | EKG12_ITS ---
Test Reason : CP Blood Pressure : / mmHG Vent. Rate : 075 BPM Atrial Rate : 075 BPM P-R Int : 182 ms QRS Dur : 092 ms QT Int : 400 ms P-R-T Axes : 002 037 041 degrees QTc Int : 446 ms Normal sinus rhythm Normal ECG Confirmed by JOSE TURNER, ANGELA ([id number]), makeup editor DELIO BALL ([id number]) on 01/13/2023 2:34:40 PM Referred By: ELIGIO/ELKIN Confirmed By:ANGELA GARCIA MD
--- NOTE | 2023-01-12 10:11 | RAD_ITS ---
STUDY: X-RAY CHEST REASON FOR EXAM: Male, 72 years old. Chest pain TECHNIQUE: PA and lateral views of the chest. COMPARISON: None. FINDINGS: EKG electrodes are seen. Mild elevation of the left hemidiaphragm. There is no demonstrated pleural abnormality. Normal size heart. Normal mediastinum and sarkis. There is prominence of the pulmonary hilar arteries without peripheral pulmonary vascular congestion, suggesting pulmonary hypertension. There is atherosclerotic calcification of the aortic arch with tortuosity. There are diffuse degenerative changes of the visualized thoracic spine. Normal visualized ribs, clavicles, and shoulders. There is no demonstrated abnormality of the visualized soft tissue structures of the upper abdomen. RAD/Chest PA and Lateral IMPRESSION: The lungs are clear. Prominence of the central pulmonary arteries. Electronically Signed: Lalo Ryan MD at 10:47 EDT ,
[2023-01-12 10:27] LABS: Absolute Lymphocyte Count 1.95 X10^3/uL (0.83-4.51); Absolute Neutrophil Count 4.6 X10^3/uL (2.0-7.7); Basophil# 0.08 X10^3/uL; Basophil% 1.1 % (0-1); Eosinophil# 0.21 X10^3/uL; Eosinophils% 2.8 % (0-5); Hematocrit 43.3 % (40-54); Hemoglobin 14.3 g/dL (13.0-16.5); Lymphocyte # 1.95 X10^3/ul (0.83-4.51); Mean Corpuscular Volume 87.8 fL (80-94); Mean Platelet Vol. 10.6 fl (6.2-12.0); Monocyte# 0.64 X10^3/uL; Monocyte% 8.5 % (0-10); NRBC Flagged by Analyzer 0 % (0-5); Neutrophil # 4.57 X10^3/uL (2.7-7.7); Neutrophil % 60.9 % (47-70); Platelet Count 228 K/mm3 (150-450); RBC Distribution Width CV 14.5 % (11.6-14.6); RBC Distribution Width SD 46.3 fl (35.1-43.9); Red Blood Count 4.93 M/mm3 (4.6-6.2); White Blood Count 7.5 K/mm3 (4.4-11.0)
[2023-01-12] MEDS: Aspirin 81 MG TAB.CHEW 324 MG PO (10:31)
[2023-01-12 10:38] VITALS: BP 164/97; PULSE 75; RESP 18; O2SAT 96
[2023-01-12 10:54] LABS: Anion Gap 8 (5-15); BUN 15 mg/dL (7-18); BUN/Creat Ratio 12.9 RATIO (10-20); Calcium,Total 9.3 mg/dL (8.5-10.1); Chloride 104 mmol/L (98-107); Creatinine, Serum 1.16 mg/dL (0.70-1.30); EST Glomerular Filtration Rate 66 mL/min (>60); Est Glom Filt Rate - Afr Amer 80 mL/min (>60); Estimated Creatinine Clearance 69.81 ml/min; Glucose 172 mg/dL (74-106); Potassium 4.5 mmol/L (3.5-5.1); Sodium Level 135 mmol/L (136-145); Troponin-I HS 7 pg/mL (3.0-78.0)
[2023-01-12] MEDS: Mag Hydrox/Al Hydrox/Simeth 30 ML UDC PO (11:19)
[2023-01-12 11:38] VITALS: PULSE 69; RESP 18; O2SAT 96
[2023-01-12 12:38] VITALS: PULSE 70; RESP 15; O2SAT 98
[2023-01-12 12:50] LABS: D-Dimer Quantitative (DVT/PE) < 0.27 FEU/ug/m (0.27-0.49)
== END 2023-01-12 13:04 | disposition home or self-care (01) ==
PROVIDERS: Emergency Provider Emergency Medicine; PCP Family Medicine; Visit Provider Emergency Medicine
DX: R07.89 Other chest pain (principal); E11.9 Type 2 diabetes mellitus without complications; Z79.4 Long term (current) use of insulin; I25.10 Atherosclerotic heart disease of native coronary artery without angina pectoris; Z85.46 Personal history of malignant neoplasm of prostate; Z85.830 Personal history of malignant neoplasm of bone
CPT/HCPCS: 71046; 80048; 84484; 85025; 85379; 93005; 99285

== ENCOUNTER → 2023-04-04 | Outpatient (CLI) | payer MEDICARE, SELFPAY ==
--- NOTE | 2023-04-04 | LES_PTH ---
PATIENT: PATI COSTA LOC: [facility] U#:[id number] AGE/SX: 72/M ROOM: RE04/04/[address]: Dr. Miguel Dubois MD : 1950 BED: DIS: 04/04/2023 SPEC #: [id number] RECD: 04/04/23 21:20 STATUS: MEHDI GUZMAN #: [id number] LUIS MIGUEL: 04/04/23 00:[address]: Miguel Dubois DEPT: SURGICAL PATHOLOGY RECD BY: Miya Chun ENTERED: 04/05/23 08:11 SP TYPE: Lesion OTHR DR: Dr. Alejo Ruby MD Tissues: Skin of eyelid, NOS Procedures: Surgery Specimen Level IV HEADER OPERATION: Excision left upper lid lesions PRE-OP DIAGNOSIS: Left upper lid lesions TISSUE SUBMITTED: Left upper lid lesions MICROSCOPIC DIAGNOSIS Left upper eyelid lesion, biopsy: Fibroepithelial polyp, inflamed. AM:jerri 04/06/2023 COMMENT Case has been reviewed in consultation with Dr. Garcia who concurs with the above diagnosis. IDC:SJ MICROSCOPIC DESCRIPTION Slides are reviewed. GROSS DESCRIPTION Received in fixative is one container labeled with the patient's name and designated left upper lid lesion. The specimen consists of a piece of whyte-white skin measuring 0.5 x 0.4 x 0.3 cm. The specimen is inked, bisected and submitted entirely in one cassette. / GAYATHRI:jerri 04/05/2023 TC:1 CPT: 74142
== END | disposition home or self-care (01) ==
LOC: LABSPEC 04-05 07:01
PROVIDERS: PCP Family Medicine; Visit Provider Ophthalmology
DX: H02.9 Unspecified disorder of eyelid (principal)
CPT/HCPCS: 88305

== ENCOUNTER → 2023-08-05 | Outpatient (CLI) | payer MEDICARE, SELFPAY ==
[2023-08-05 14:15] LABS: CREATININE FINGERSTICK < 1.0 mg/dL (0.70-1.30); EGFR FINGERSTICK > 60.0000 mL/min (>60)
--- NOTE | 2023-08-05 14:38 | CT_ITS ---
STUDY: CT SOFT TISSUE NECK WITH CONTRAST REASON FOR EXAM: Male, 73 years old. Mass of parotid gland -- IV contrast. Patient has a history of metastatic prostate cancer. RADIATION DOSAGE (If Supplied By Facility): CTDIvol = ( 19.50 ) mGy, DLP = ( 628.40 ) mGycm TECHNIQUE: The patient was scanned in a multi-detector CT scanner. High resolution transaxial imaging was performed following intravenous administration of IV 75mL Isovue-370. Sagittal and coronal images were reconstructed. Individualized dose optimization techniques were used for this CT. COMPARISON: None. FINDINGS: Normal bilateral parotid glands. Normal bilateral toe stapler spaces. Normal bilateral parapharyngeal spaces. Normal bilateral carotid spaces. Normal bilateral sublingual and submandibular glands and spaces. Normal visualized nasopharynx. Normal retropharyngeal space. Normal perivertebral space. Normal visualized bilateral faucial tonsils. The visualized tongue, tongue base and oropharynx are normal. There are minimally enlarged lymph nodes of the neck, with preservation of normal leticia architecture, consistent with a reactive lymph hyperplasia. There is no demonstrated solid or cystic mass lesion. There is no abnormal contrast enhancement. Normal epiglottis, bilateral vallecula and hypopharynx. The pre-epiglottic and paraglottic adipose spaces are normal. Normal visualized bilateral piriform sinuses, aryepiglottic folds, vocal cords, and arytenoid-cricoid articulations. Normal subglottic trachea. Normal bilateral lobes of the thyroid gland. Normal visualized pulmonary apices. Mild degree of mucosal thickening of the right sphenoid sinus. There is multilevel degenerative changes of the cervical spine. Loss of the normal cervical lordosis. CT/Soft Tissue Neck WITH Contrast IMPRESSION: No parotid mass is seen. Mucosal thickening of the right sphenoid sinus. Small benign-appearing cervical lymph nodes. Electronically Signed: Lalo Ryan MD at 15:28 EST ,
--- OUTSIDE RECORDS SUMMARY | 2023-08-05 16:51 | XMS RPT_ITS | CCD ---
Author Name Unknown Address [address] [place] [address] Organization [facility] Care Team Providers Care Dinkey Skinner Name Role Phone Megan Loyd MD Primary Care Provider [facility], [place] Unavailable Megan Loyd MD Primary Care Provider [facility], [place] Unavailable Masci DODuong A Unavailable Megan Loyd MD Primary Care Provider [facility], [place] Unavailable Masci DO, Duong A Unavailable [facility], [place] Unavailable MEGAN LOYD Primary Care Unavailable LIZ ARREGUIN Referring Unavailable DUONG LYN Referring Unavailable MEGAN LOYD Primary Care Unavailable MASCIDUONG Referring Unavailable MEGAN LOYD Primary Care Unavailable DUONG LYN Referring Unavailable MEGAN LOYD Primary Care Unavailable LIZ ARREGUIN Attending Unavailable DUONG LYN Referring Unavailable MEGAN LOYD Primary Care Unavailable MASCIDUONG Referring Unavailable MEGAN LOYD Primary Care Unavailable DUONG LYN Referring Unavailable MEGAN LOYD Primary Care Unavailable ADRIÁNI, DUONG Sanchez Referring Unavailable MEGAN LOYD Primary Care Unavailable MASCI, DUONG Sanchez Referring Unavailable LORETTA, DUONG A Attending Unavailable MEGAN LOYD Primary Care Unavailable ADRIÁNIDUONG Referring Unavailable MEGAN LOYD Primary Care Unavailable DUONG LYN Referring Unavailable MEGAN LOYD Primary Care Unavailable MASCDUONG [place] A Referring Unavailable MEGAN LOYD Primary Care Unavailable MEGAN LOYD Primary Care Unavailable TANNHOF, PREMA Referring Unavailable DUONG LYN Referring Unavailable MEGAN LOYD Primary Care Unavailable DUONG LYN Referring Unavailable MEGAN LOYD Primary Care Unavailable DUONG LYN Referring Unavailable MEGAN LOYD Primary Care Unavailable MEGAN LOYD Primary Care Unavailable MEGAN LOYD Attending Unavailable DUONG LYN Referring Unavailable MEGAN LOYD Primary Care Unavailable Allergies Allergy Classification Reported Allergen(s) Allergy Type Date of Onset Reaction(s) Facility (20 sources) atorvastatin; Translations: [ATORVASTATIN CALCIUM] Drug Allergy 5 Other: See Comments [facility] (20 sources) metFORMIN; Translations: [METFORMIN] Drug Allergy 9 Intolerance [facility] (20 sources) environmental Other] [Other] Propensity to adverse reactions 6 [facility] Work Phone: (1 source) OTHER; Translations: [OTHER] Propensity to adverse reactions (disorder) 6 [facility] Repository Medications Completed/Discontinued Medications Medication Drug Class(es) Dates Sig (Normalized) Sig (Original) aspirin 81 mg oral tablet (20 sources) Platelet Aggregation Inhibitor, Nonsteroidal Anti-inflammatory Drug take 1 capsule by mouth once daily aspirin 81 mg cap Take 81 mg by mouth once daily. 0 Active Problems Problem Classification Problem Date Documented Da te Episodic/Chronic Asthma (20 sources) Unspecified asthma, uncomplicated; Translations: [Asthma, unspecified type, unspecified] Onset: 8 10-25-2007 Chronic Cancer of prostate (20 sources) Malignant tumor of prostate; Translations: [Malignant neoplasm of prostate] Onset: 9 03-13-2019 Chronic Diabetes mellitus with complications (1 source) Type II diabetes mellitus uncontrolled; Translations: [Type 2 diabetes mellitus with hyperglycemia] Chronic Diabetes mellitus without complication (20 sources) Type 2 diabetes mellitus without complication; Translations: [Type 2 diabetes mellitus without complications] Onset: 5 Chronic Disorders of lipid metabolism (20 sources) Mixed hyperlipidemia; Translations: [Mixed hyperlipidemia] 06-17-2015 Chronic Esophageal disorders (20 sources) Gastroesophageal reflux disease; Translations: [Gastro-esophageal reflux disease without esophagitis] Onset: 5 04-29-2005 Chronic Genitourinary symptoms and ill-defined conditions (2 sources) Dysuria; Translations: [Dysuria] Episodic Nonspecific chest pain (1 source) Chest pain; Translations: [Chest pain, unspecified] 01-20-2023 Episodic Other gastrointestinal disorders (20 sources) Irritable bowel syndrome; Translations: [Irritable bowel syndrome without diarrhea] 04-28-2005 Chronic Other male genital disorders (20 sources) Secondary erectile dysfunction; Translations: [Male erectile dysfunction, unspecified] Onset: 6 06-29-2021 Chronic Other nutritional; endocrine; and metabolic disorders (20 sources) Morbid obesity; Translations: [Morbid (severe) obesity due to excess calories] Onset: 4 10-01-2013 Chronic Other upper respiratory disease (20 sources) Allergic rhinitis; Translations: [Allergic rhinitis, unspecified] 04-28-2005 Chronic Residual codes; unclassified (20 sources) Sleep apnea; Translations: [Sleep apnea, unspecified] 07-31-2015 Chronic Residual codes; unclassified (1 source) Obstructive sleep apnea syndrome; Translations: [Obstructive sleep apnea (adult) (pediatric)] 01-20-2023 Chronic Secondary malignancies (20 sources) Secondary malignant neoplasm of bone; Translations: [Secondary malignant neoplasm of bone] Onset: 9 03-13-2019 Chronic Secondary malignancies (4 sources) Secondary malignant neoplasm of bone; Translations: [Malignant neoplasm metastatic to bone (HCC)] Onset: 9 Chronic Spondylosis; intervertebral disc disorders; other back problems (20 sources) Intervertebral disc disorder; Translations: [Unspecified thoracic, thoracolumbar and lumbosacral intervertebral disc disorder] 04-28-2005 Chronic Results Test Name Value Interpretation Reference Range Facil ity Vital Signs Date Time Vital Sign Value Performing Clinician Faci lity 04-26-2023 13:35-0400 Body temperature 98.01 [degF] Treatment Wstr Work Phone: [facility] 04-26-2023 13:35-0400 Diastolic blood pressure 72 mm[Hg] Treatment Wstr Work Phone: [facility] 04-26-2023 13:35-0400 Heart rate 70 /min Treatment Wstr Work Phone: [facility] 04-26-2023 13:35-0400 Respiratory rate 16 /min Treatment Wstr Work Phone: [facility] 04-26-2023 13:35-0400 SaO2% (BldA) [Mass fraction] 96 % Treatment Wstr Work Phone: [facility] 04-26-2023 13:35-0400 Systolic blood pressure 125 mm[Hg] Treatment Wstr Work Phone: [facility] 01-20-2023 14:17-0400 Body weight 144.34 kg Megan Loyd MD Work Phone: [facility] 01-20-2023 14:17-0400 Diastolic blood pressure 80 mm[Hg] Megan Loyd MD Work Phone: [facility] 01-20-2023 14:17-0400 Heart rate 74 /min Megan Loyd MD Work Phone: [facility] 01-20-2023 14:17-0400 Respiratory rate 16 /min Megan Loyd MD Work Phone: [facility] 01-20-2023 14:17-0400 Systolic blood pressure 120 mm[Hg] Megan Loyd MD Work Phone: [facility] 10-29-2022 15:09-0400 Body height 190 cm Duong Masci DO Work Phone: [facility] 10-29-2022 15:09-0400 Body temperature 98.1 [degF] Duong Masci DO Work Phone: [facility] 10-29-2022 15:09-0400 Body weight 144.47 kg Duong Masci DO Work Phone: [facility] 10-29-2022 15:09-0400 Diastolic blood pressure 71 mm[Hg] Duong Masci DO Work Phone: [facility] 10-29-2022 15:09-0400 Heart rate 76 /min Duong Masci DO Work Phone: [facility] 10-29-2022 15:09-0400 SaO2% (BldA) [Mass fraction] 96 % Duong Masci DO Work Phone: [facility] 10-29-2022 15:09-0400 Systolic blood pressure 125 mm[Hg] Duong Masci DO Work Phone: [facility] 02-19-2022 14:39-0400 Body temperature 97.39 [degF] Treatment Wstr Work Phone: [facility] 02-19-2022 14:39-0400 Diastolic blood pressure 64 mm[Hg] Treatment Wstr Work Phone: [facility] 02-19-2022 14:39-0400 Heart rate 75 /min Treatment Wstr Work Phone: [facility] 02-19-2022 14:39-0400 Respiratory rate 16 /min Treatment Wstr Work Phone: [facility] 02-19-2022 14:39-0400 Systolic blood pressure 143 mm[Hg] Treatment Wstr Work Phone: [facility] 11-27-2021 14:13-0400 Body temperature 96.21 [degF] Duong Adriáni DO Work Phone: [facility] 11-27-2021 14:13-0400 Body weight 146.74 kg Duong Masci DO Work Phone: [facility] 11-27-2021 14:13-0400 Diastolic blood pressure 66 mm[Hg] Duong Masci DO Work Phone: [facility] 11-27-2021 14:13-0400 Heart rate 71 /min Duong Masci DO Work Phone: [facility] 11-27-2021 14:13-0400 SaO2% (BldA) [Mass fraction] 97 % Duong Masci DO Work Phone: [facility] 11-27-2021 14:13-0400 Systolic blood pressure 142 mm[Hg] Duong Masci DO Work Phone: [facility] Encounters Encounter Date Encounter Type Care Provider Facility Start: 08-04-2023 Specialty Pharmacy Amy Perales [facility] Procedures Date Procedure Procedure Detail Performing Clinician Start: 10-29-2022 Urnls dip stick/tabl et reagent auto microscopy Duong Lyn DO Work Phone: Start: 06-11-2021 [facility] Work Phone: Start: 02-13-2019 [facility] Work Phone: Plan of Treatment Date Care Activity Detail Author Start: 02-13-2029 Colonoscopy COLONOSCOPY [facility] Start: 02-13-2029 COLORECTAL CANCER SCREENING COLORECTAL CANCER SCREENING [facility] Start: 02-13-2029 Screening for malignant neoplasm of colon [facility] Start: 06-10-2025 Urine microalbumin profile [facility] Start: 01-21-2024 ANNUAL PCP TEAM CHRONIC DISEASE VISIT ANNUAL PCP TEAM CHRONIC DISEASE VISIT [facility] Start: 10-30-2023 Hepatitis B screening URINE ALBUMIN:CREATININE RATIO [facility] Start: 07-26-2023 Glaucoma screening Dilated Retinal Exam [facility] Start: 07-26-2023 Hepatitis C antibody, confirmatory test DILATED RETINAL EXAM [facility] Start: 07-23-2023 Hemoglobin A1c measurement HbA1C [facility] Start: 07-23-2023 Hemoglobin A1c/Hemoglobin.total in Blood HBA1C [facility] Start: 07-04-2023 Advance Directive Discussion Advance Directive Discussion [facility] Start: 07-04-2023 Depression Assessment Depression Assessment [facility] Start: 03-04-2023 Covid-19 Vaccine ( season) Covid-19 Vaccine () [facility] Start: 03-04-2023 Influenza vaccination [facility] Start: 01-20-2023 End: 03-22-2023 Basic metabolic 2000 panel - Serum or Plasma BASIC METABOLIC PNL Lab STAT Prostate cancer (HCC) Prostate cancer metastatic to bone (HCC) Expected: 01/20/2023, Expires: 03/22/2023 [facility] Work Phone: Immunizations Immunization Date Immunization Notes Care Provider Su quiroz 06-06-2018 influenza virus vaccine, unspecified formulation Duong Lyn DO Work Phone: [facility] 06-10-2015 tetanus toxoid, redu bobbi diphtheria toxoid, and acellular pertussis vaccine, adsorbed [facility] Work Phone: [facility] 04-26-2006 tetanus toxoid, redu bobbi diphtheria toxoid, and acellular pertussis vaccine, adsorbed [facility] Work Phone: [facility] Work Phone: Payers Date Payer Category Payer Medicare [employer] MEDICARE A ETNA MEDICARE PPO [id number] 2021-Present [phone] [address] [place] [address] PPO [id number] 2021 Medicare A[employer] MEDICARE A ETNA MEDICARE PPO [id number] 2021-Present [phone] [address] [place] [address] PPO [id number] 2021 Medicare [id number] Social History Date Type Detail Facility Tobacco smoking stat [facility] Never smoked tobacco [facility] Work Phone: Start: 09-24-2021 End: 01-20-2023 Alcohol intake Current non-drinker of alcohol (finding) [facility] Start: 04-27-2019 History SDOH Social Connections Living 3 [facility] Start: 04-27-2019 History SDOH Food Worry 1 [facility] Start: 04-27-2019 History SDOH Transport Med 2 [facility] Start: 1950 Sex Assigned At Not on file [facility] Start: 08-04-2021 End: 05-10-2022 Exposure to SARS-CoV-2 (event) Not sure [facility] Start: 04-27-2019 End: 11-03-2022 History of Social function [facility] Start: 04-27-2019 End: 11-03-2022 Social connection and isolation panel [facility] Frequency of Communi cation with Friends and Family Not on file [facility] Are you now , , , , never or living with a partner? [facility] (I/We) worried wheth er (my/our) food would run out before (I/we) got money to buy more. Never true [facility] Medical Equipment Procedure Code Equipment Code Equipment Origin al Text Equipment Identifier Dates Start: 02-06-2018 End: 06-11-2023 Goals Date Patient Goal Desired Activity /State Personal health goal Personal health goal Personal health goal Clinical Notes 07-18-2011 to 07-19-2023 Telephone Encounter - Tony Junior APRN.CNP - 06/13/2023 12:14 PM ESTTelephone Encounter - Dahiana Quintana LPN - 05/24/2023 2:22 PM Tyesha Arellano RN - 04/26/2023 1:39 PM EDT Note Date & Type Note Facility 07-19-2023 Note HNO ID: [id number] Author: ROXY ERICKSON, AKSHAT Service: ? Author Type: Registered Nurse Type: Progress Notes Filed: 07/19/2023 14:51 Note Text: Pt had OV visit with Liz prior to treatment. Pt verbalized No concerns. Shortly after infusion begin pt noted hand to be swelling. IV in left hand infiltrated. X1 other attempt to insert IV unsuccessful. Pt requesting to come back tomorrow. [facility] 07-19-2023 Note HNO ID: [id number] Author: LIZ ARREGUIN APRN.CNP Service: ? Author Type: Nurse Practitioner Type: Progress Notes Filed: 07/21/2023 08:00 Note Text: Chief Complaint No chief complaint on file. HPI: Jaspreet Costa is a 73 year old male who presents here today for follow up prostate cancer. Per Dr. Lyn's previos note: H/o type 2 diabetes, mixed hyperlipidemia and obstructive sleep apnea. Presented to the emergency department at [facility] on 05/11/2019 with a complaint of not feeling well. About a month prior to the visit he was started on metformin for worsening hyperglycemia. He did not tolerate that medication well and he was transitioned in slowing. In the week prior to ER presentation his insulin-requiring onset double. He then developed abdominal distention and a general feeling of malaise. CT A/P 02/11/2019: FINDINGS: The visualized lung bases are unremarkable. The visualized portions of the heart are within normal limits. There is decreased attenuation of the liver consistent with steatosis. Normal gallbladder and extrahepatic biliary system. Normal spleen. There is diffuse atrophy of the pancreas. Normal bilateral adrenal glands. Right perinephric fat stranding or edema. Moderate right hydronephrosis without hydroureter. No obstructing stone. There is also left-sided hydronephrosis and left ureter. Prominent distention of the bladder suggesting urinary retention Normal visualized stomach. Normal small intestine. Prominent gaseous distended loops of colon with fecal retention. There is transition area with wall narrowing in the region of the rectum. Colonic diverticulosis without acute diverticulitis. The appendix is visualized and appears normal. Several prominent nonspecific pelvic lymph nodes. Normal abdominal aorta. Normal inferior vena cava. Normal retroperitoneum. Marked distention of the bladder compatible with urinary retention. Heterogeneous prostate Normal abdominal wall. There are diffuse degenerative changes of the visualized lumbar spine. IMPRESSION: 1. Significant distention of the urinary bladder with bilateral hydronephrosis and hydroureter without evidence of obstructing stone. There is bilateral perinephric fat stranding and edema suggesting inflammation and infection. Recommend placement of Sanchez catheter for decompression of the bladder. 2. There is prominent gaseous distended loops of colon with fecal retention. There appears to be transition point in the rectosigmoid colon with suspicion of wall thickening and underlying mass. Numerous prominent and suspicious pelvic lymph nodes are noted. Significantly serum creatinine was elevated to 8.69 mg/dL. Sanchez catheter was placed and evidently 2 L and urine was drained. Patient was admitted to the hospital for further workup. Serum creatinine decreased to 2.4 mg/dL as of 02/12 and was down to 0.97 mg/dL at the time of discharge on 02/13. PSA on 02/11/2019 was 107.00 ng/mL. He underwent colonoscopy on 02/13/2019. The preparation the colon was noted to be fair. On the prostate, the left lobe was suspicious for a mass about 2-6 cm from the anal verge. There was a 4 mm polyp in the sigmoid colon that was removed with cold biopsy forceps. The examination was otherwise normal. The polyp returned as hyperplastic histology. Patient then underwent outpatient workup of suspicious prostate cancer. He underwent transurethral resection of prostate and transrectal prostate biopsy on 02/20/2019. Pathology: MICROSCOPIC DIAGNOSIS A. Prostate, needle corer biopsy: Adenocarcinoma: Claude grade: 7 (3+4) Cores involved: 3/3 Tissue involved: 60% Greatest tumor length:13 mm Perineural invasion: present B. Prostate, transurethral resection: Minute focus of adenocarcinoma. Claude grade 7 (3+4) Cores involved: 1 Greatest tumor length: 2 mm Bone scan 03/09/2019: FINDINGS: Following the intravenous administration of 22.2 mCi of 99m Tc MDP, whole body bone images reveal: 1. Increased radiopharmaceutical concentration is identified in the right scapula in two separate locations, right iliac wing, the seventh thoracic vertebra posteriorly on the left and right, the left posterior ninth rib, heterogeneously defined in the proximal-distal sternum. 2. Facilitated tracer concentration is noted in the acromioclavicular compartments of both shoulders, right knee, bilateral ankle articulations. 3. The remaining skeletal structures are scintigraphically unremarkable with normal-appearing renal images and urinary bladder activity identified. IMPRESSION: 1. The increase in radiopharmaceutical concentration identified in the right scapula, right iliac wing, seventh thoracic vertebra, left posterior ninth rib, proximal-distal sternum likely represent skeletal metastatic disease. Plain film radiography correlation may be of benefit in the region of the right scapula, rig (more content not included)... [facility] 07-07-2023 Note HNO ID: [id number] Author: ?, ?, ? Service: ? Author Type: ? Type: Progress Notes Filed: 07/11/2023 15:59 Note Text: [facility] Specialty Refill Assessment Medication(s): Xtandi No new clinical information to review since last SPP refill encounter. Next OV scheduled 07/19/23 with labs. ALLERGIES Allergen Reactions Metformin Intolerance GI upset Environmental Other* Lipitor [Atorvastat* Other: See Comments elevated liver enzyme- muscle ache Patient's current medication list and adherence status to current therapy were reviewed by Specialty Pharmacy clinical pharmacist to identify any new drug interactions or non-compliance to therapy. Therapy continues to be appropriate for disease, patient response, and medical condition. Verification of therapeutic benefit and effectiveness with current therapy was completed. Adverse events, barriers in adherence, and side effects were assessed and addressed if applicable. Will proceed with refill with no changes in therapy - patient progressing towards achieving therapeutic goals based on medication-specific laboratory parameters, disease state markers and outcomes. Daylin Garner, LeeannaD Clinical Pharmacist, Oncology [facility] Specialty Pharmacy P: , F Pool: P [facility] Pool #: [id number] Kinesiology Internship Assessment Patient confirmed: Yes Med/dose confirmed: Yes Supplies needed: No supplies needed Missed doses: No Estimated days supply on hand: 8 Copay amount: 710.48 Copay form of payment: Credit card on file Payment confirmed: Yes Delivery method: FedEx Signature required: No Delivery address: [address] [place] [address], put in [facility] box, [facility] [address] Delivery date: 07/13/23 Questions or concerns for the pharmacist?: No (Patient is aware of copay.) [facility] Specialty Pharmacy Visit Assessment - Hematology/Oncology: Ivent complete: No Assessment to use: Refill Vaccination Assessment: Date of influenza vaccination reminder: 03/06/2023 Date of most recent vaccination assessment: 03/06/2023 Refill Assessment: Lab monitoring inclusive of CBC, Chem-7, and other labs as pertinent for therapy: Yes Chemo cycle timing assessment: N/A Screening for infection: Yes Adverse reactions and mitigation: Yes Medication changes and interaction assessment: Yes Assessment of injection issues: N/A Additional Assessment: Assessment of continued need for prophylactic medications at regular intervals: Yes Radiology procedure timing to assess for disease progression: Yes Scheduled future appointments: Yes Abby Villagran (Dining Room Attendant) [facility] 06-13-2023 Miscellaneous Notes The following approved medication requests have been transmitted electronically. Requested Prescriptions Pending Prescriptions Disp Refills Insulin Davis, Disposable, (BD ULTRA-FINE NEVA PEN NEEDLE) 32 gauge x 5/32 30 Each 11 Sig: Use one needle for each dose. 1/day. Tony Junior APRN.CNP documented in this encounter [facility] 06-02-2023 Note HNO ID: [id number] Author: Shalini Gonzales Service: ? Author Type: ? Type: Progress Notes Filed: 06/12/2023 7:46 PM Note Text: [facility] Specialty Refill Assessment Medication(s): Xtandi No new clinical information to review since last SPP refill encounter. Next OV scheduled 07/19/23 with labs. ALLERGIES Allergen Reactions Metformin Intolerance GI upset Environmental Other* Lipitor [Atorvastat* Other: See Comments elevated liver enzyme- muscle ache Patient's current medication list and adherence status to current therapy were reviewed by Specialty Pharmacy clinical pharmacist to identify any new drug interactions or non-compliance to therapy. Therapy continues to be appropriate for disease, patient response, and medical condition. Verification of therapeutic benefit and effectiveness with current therapy was completed. Adverse events, barriers in adherence, and side effects were assessed and addressed if applicable. Will proceed with refill with no changes in therapy - patient progressing towards achieving therapeutic goals based on medication-specific laboratory parameters, disease state markers and outcomes. Amy Pichardo, PharmD Clinical Pharmacist, Oncology [facility] P: , F: Pool: P [facility] Pool #: [id number] Kinesiology Internship Assessment Patient confirmed: Yes Med/dose confirmed: Yes Supplies needed: No supplies needed Missed doses: No Estimated days supply on hand: 7 Copay amount: 0 Copay form of payment: Credit card on file Payment confirmed: Yes Delivery method: FedEx Signature required: Waived on patient request Delivery address: [address] [place], [place] [id number] Put in UPS box Delivery date: 06/14/23 Questions or concerns for the pharmacist?: No [facility] Special[facility] Pharm[facility] Visit Assessment - Hematology/Oncology: Ivent complete: No Assessment to use: Refill Vaccination Assessment: Date of influenza vaccination reminder: 03/06/2023 Date of most recent vaccination assessment: 03/06/2023 Refill Assessment: Lab monitoring inclusive of CBC, Chem-7, and other labs as pertinent for therapy: Yes Chemo cycle timing assessment: N/A Screening for infection: Yes Adverse reactions and mitigation: Yes Medication changes and interaction assessment: Yes Assessment of injection issues: N/A Additional Assessment: Assessment of continued need for prophylactic medications at regular intervals: Yes Radiology procedure timing to assess for disease progression: Yes Scheduled future appointments: Yes Shalini Gonzales [facility] 05-24-2023 Miscellaneous Notes Request for refill sent to Dr. Lyn in other refill request dated 05/24. Dahiana Quintana LPN documented in this encounter [facility] 05-24-2023 Miscellaneous Notes Patient has been identified by name and date of : Yes Requested Prescriptions Pending Prescriptions Disp Refills ergocalciferol 50,000 unit capsule (VITAMIN D2, DRISDOL) [Pharmacy Med Name: Vitamin D (Ergocalciferol) 1.25 MG (13492 UT) Oral Capsule] 26 capsule 0 Sig: Take 1 capsule by mouth once a week RX INSTRUCTIONS: Patient aware RX will be sent to pharmacy. No need to notify patient. Dahiana Quintana LPN documented in this encounter [facility] 05-05-2023 Note HNO ID: [id number] Author: Christy Condon Service: ? Author Type: ? Type: Progress Notes Filed: 05/10/2023 7:55 AM Note Text: [facility] Refill Assessment Medication(s): Xtandi 40mg No new clinic notes to review since last SPP refill encounter. OV on 04/14 was missed. Labs from 04/15/23 reviewed - PSA stable at 0.12, CBC unremarkable. Next OV scheduled 07/19/23 with labs. ALLERGIES Allergen Reactions Metformin Intolerance GI upset Environmental Other* Lipitor [Atorvastat* Other: See Comments elevated liver enzyme- muscle ache Patient's current medication list and adherence status to current therapy were reviewed by Specialty Pharmacy clinical pharmacist to identify any new drug interactions or non-compliance to therapy. Therapy continues to be appropriate for disease, patient response, and medical condition. Verification of therapeutic benefit and effectiveness with current therapy was completed. Adverse events, barriers in adherence, and side effects were assessed and addressed if applicable. Will proceed with refill with no changes in therapy - patient progressing towards achieving therapeutic goals based on medication-specific laboratory parameters, disease state markers and outcomes. Amy Pichardo, PharmD Clinical Pharmacist, Oncology [facility] P: , F: Pool: P [facility] Pool #: [id number] Kinesiology Internship Assessment Patient confirmed: Yes Med/dose confirmed: Yes Supplies needed: No supplies needed Missed doses: No Copay amount: 0 Payment confirmed: Yes Delivery method: FedEx Signature required: Waived on patient request Delivery address: [address], *Put in UPS Box,* [place], [id number] Delivery date: 05/11/23 Questions or concerns for the pharmacist?: No [facility] Visit Assessment - Hematology/Oncology: Ivent complete: No Assessment to use: Refill Vaccination Assessment: Date of influenza vaccination reminder: 03/06/2023 Date of most recent vaccination assessment: 03/06/2023 Refill Assessment: Lab monitoring inclusive of CBC, Chem-7, and other labs as pertinent for therapy: Yes Screening for infection: Yes Adverse reactions and mitigation: Yes Medication changes and interaction assessment: Yes Assessment of injection issues: N/A Additional Assessment: Assessment of continued need for prophylactic medications at regular intervals: Yes Radiology procedure timing to assess for disease progression: Yes Scheduled future appointments: Yes Christy Condon [facility] 04-26-2023 Note HNO ID: [id number] Author: Tyesha Holley RN Service: ? Author Type: Registered Nurse Type: Progress Notes Filed: 04/26/2023 3:04 PM Note Text: Denies any dental issues or concerns. Denies any extractions or other issuess. Tyesha Holley RN [facility] 04-26-2023 History of Present illness Narrative Denies any dental issues or concerns. Denies any extractions or other issuess. Tyesha Holley RN documented in this encounter [facility] 04-18-2023 Miscellaneous Notes Rescheduled with patient PSA stable. Come for 3 month Zometa when able this week or next. Then reschedule for OV/CBC/CMP/PSA/Zometa with Liz 3 months from when gets upcoming Zometa. Duong Lyn DO Patient presented at the [facility] [employer] and was informed that he missed his office visit and Zometa. Please advise if this needs rescheduled or if we are to move forward as scheduled. Brittaney Jordan documented in this encounter [facility] 04-04-2023 Note HNO ID: [id number] Author: Ivis Jama Service: ? Author Type: ? Type: Progress Notes Filed: 04/12/2023 7:39 AM Note Text: [facility] Refill Assessment Medication(s): Xtandi No new clinical information to review since last SPP refill encounter. Next OV scheduled 04/14/23 with labs - pt does not want short supply. ALLERGIES Allergen Reactions Metformin Intolerance GI upset Environmental Other* Lipitor [Atorvastat* Other: See Comments elevated liver enzyme- muscle ache Patient's current medication list and adherence status to current therapy were reviewed by Specialty Pharmacy clinical pharmacist to identify any new drug interactions or non-compliance to therapy. Therapy continues to be appropriate for disease, patient response, and medical condition. Verification of therapeutic benefit and effectiveness with current therapy was completed. Adverse events, barriers in adherence, and side effects were assessed and addressed if applicable. Will proceed with refill with no changes in therapy - patient progressing towards achieving therapeutic goals based on medication-specific laboratory parameters, disease state markers and outcomes. Amy Pichardo, PharmD Clinical Pharmacist, Oncology [facility] P: , F: Pool: P [facility] Pool #: [id number] Kinesiology Internship Assessment Patient confirmed: Yes Med/dose confirmed: Yes Supplies needed: No supplies needed Missed doses: No Estimated days supply on hand: 6 Copay amount: 0 Payment confirmed: Yes Delivery method: FedEx Signature required: Waived on patient request Delivery address: [address] [place] [address], [id number] Delivery date: 04/13/23 Questions or concerns for the pharmacist?: No [facility] Visit Assessment - Hematology/Oncology: Ivent complete: No Assessment to use: Refill Vaccination Assessment: Date of influenza vaccination reminder: 03/06/2023 Date of most recent vaccination assessment: 03/06/2023 Refill Assessment: Lab monitoring inclusive of CBC, Chem-7, and other labs as pertinent for therapy: Yes Chemo cycle timing assessment: N/A Screening for infection: Yes Adverse reactions and mitigation: Yes Medication changes and interaction assessment: Yes Assessment of injection issues: N/A Additional Assessment: Assessment of continued need for prophylactic medications at regular intervals: Yes Radiology procedure timing to assess for disease progression: Yes Scheduled future appointments: Yes Ivis Jama [facility] 02-01-2023 Note HNO ID: [id number] Author: Shelli Duvall Service: ? Author Type: ? Type: Progress Notes Filed: 03/06/2023 12:39 PM Note Text: [facility] Ref[facility] Assessment Medication(s): xtandi No new clinical oncology information to review since last [facility]PP refill encounter. Next OV scheduled 04/14/23. ALLERGIES Allergen Reactions Metformin Intolerance GI upset Environmental Other* Lipitor [Atorvastat* Other: See Comments elevated liver enzyme- muscle ache Patient's current medication list and adherence status to current therapy were reviewed by Specialty Pharmacy clinical pharmacist to identify any new drug interactions or non-compliance to therapy. Therapy continues to be appropriate for disease, patient response, and medical condition. Verification of therapeutic benefit and effectiveness with current therapy was completed. Adverse events, barriers in adherence, and side effects were assessed and addressed if applicable. Will proceed with refill with no changes in therapy - patient progressing towards achieving therapeutic goals based on medication-specific laboratory parameters, disease state markers and outcomes. Leeanna MonroeD, BCOP Clinical Pharmacist, Oncology [facility] P: , F Pool: P [facility] Pool #: [id number] Kinesiology Internship Assessment Patient confirmed: Yes Med/dose confirmed: Yes Supplies needed: No supplies needed Missed doses: No Estimated days supply on hand: 9 Copay amount: 0 Payment confirmed: Yes Delivery method: FedEx Signature required: Waived on patient request Delivery address: [address] [place] [id number] Delivery date: 03/09/23 Questions or concerns for the pharmacist?: No [facility] Visit Assessment - Hematology/Oncology: Ivent complete: No Assessment to use: Refill Vaccination Assessment: Date of influenza vaccination reminder: 03/26/2022 Date of most recent vaccination assessment: 03/26/2022 Refill Assessment: Lab monitoring inclusive of CBC, Chem-7, and other labs as pertinent for therapy: Yes Chemo cycle timing assessment: N/A Screening for infection: Yes Adverse reactions and mitigation: Yes Medication changes and interaction assessment: Yes Assessment of injection issues: N/A Additional Assessment: Assessment of continued need for prophylactic medications at regular intervals: Yes Radiology procedure timing to assess for disease progression: Yes Scheduled future appointments: Yes Shelli Duvall [facility] 01-20-2023 Note HNO ID: [id number] Author: Megan Loyd MD Service: ? Author Type: Physician Type: Progress Notes Filed: 01/20/2023 5:44 PM Note Text: Chief Complaint Patient presents with: ED Follow-up: [facility]-chest pains HPI Jaspreet Costa is a 72 year old male who presents here today for a [place] ED follow up. Pt here today for an ED follow up. Pt has not been seen in the office since 2019. Here with his Significant other, Romana. His insurance company sends a doctor out to his home 2 x a year and does an exam on him. They do not do any lab work. They do advise he follow up with his PCP regularly. No bowel, Gi, or urinary issues. Takes Metamucil BID and alocure supplement together for constipation which works great to keep his bowels moving. Has prostate cancer that is causing his urinary issues, follows with [facility] Urologist Dr. Jorge. Getting Eligard injections every 3 months and Xtandi 40 mg 2 pills once daily. Also getting Zometa injections every 3 months as well. He states that it moved to bone cancer so he sees Hem/onc Dr. Lyn. Dr. Lyn has him taking Vitamin D3 50,000 international unit(s) weekly. He states he complained to Dr. Lyn about this a year ago because it was becoming more continuous. He had [place] Cardiac Perf Stress/Exercise test because the chest pain. He states that time the pain was not compared to his pain that caused him to go to ER. He doesn't not recall what side the chest pain was on last year when he complained about it. He admits that he gets light headed when he goes from sitting to standing, had this looked into and was told his BP doesn't change . He states that he is aware of this, has had since High School and just holds on to things or moves slowly to prevent falls. Pt called into the office and spoke with a Triage Nurse regarding chest pain. He was advised to go to the ED. He states all his life he has had issues with getting sharp chest pains intermittently that lasts up to 30 seconds then resolves every 2-3 months. Pain was on right side chest and down right arm. He states he had this same pain however it returned 12 hours later. Pt stated that the pain was there no matter what activities he did. He stated EKG was done and he was ready to go home however ER wanted to do more cardiac testing. He had CXR, ruled out blood clots, did labs. He was treated for acid reflux, started on Protonix 40 mg daily. He isn't convinced it is reflux related because eating does not make it worse or better. He c/o body aches, headache and nausea while on Protonix, only used for 3 days, stopped it and started on OTC Ginseng Root once daily. He states since being home he has had very little pain, went to ER with pain at 8/10, today it is only 1 or 2/10, calls it more of an annoyance. He denies any SOB or dizziness when he has the chest pains. He does not get chest pain when pushed on. Dehydration does not seem to be a factor. . DM: has been following with Pharmacist Jacquelin. He is taking Lantus 65 units daily, Farxiga 10 mg once daily, Trulicity 4.5 mg once a week. BS running between 120-180. He denies any hypoglycemic episodes that they are aware of but possibly. There are days he comes in from working and he is very fatigued and wore out, he has to lay down and nap. They have not checked BS readings when he is feeling like that but plan to start. Advised not to skip any dosages of his medications or insulin unless his BS are very low. Lipid: not taking any statins. Tries to watch diet. He enjoys working outdoors and being active with tasks. ABHINAV: Uses his CPAP/BiPAP every night which works well for him. He states its a must. Ears: has been told he doesn't hear or listen well. Has had wax build up in ears before. Skin: several moles and lesion on the back. They do not bother him, no changes. Eye: left; small cyst to the eyelid, no pain, no drainage. He has seen eye doctor who has not been concerned about it. ED visit from 01/12/23: HPI History of Present Illness Chief Complaint: Chest Pain Informant: patient Onset/Context/Timing Onset: Yesterday (at 1500) Activity at onset: sudden and onset Timing: Continuous Quality: Positive for Pain ( needle ) Location: Right Chest (radiating down RUE) Current Severity: Moderate Maximum Severity: Moderate Worsened By: Nothing; Not Worsened By Exertion, Movement of Arm, Movement of Torso, Breathing or Coughing Narrative Narrative: 72-year-old male presents with needle-like right-sided chest pain behind his breast but feels like it is on the inside that has been persistent since around 19 hours prior to presentation. He states he has had this pain all my life but only for brief periods of time, and this has been more persistent. He had an episode that lasted a while last year and ended up seeing cardiology getting a stress test that was negative. He has no history of coronary d (more content not included)... [facility] 01-20-2023 History of Present illness Narrative Chief Complaint Patient presents with: ED Follow-up: [facility]-chest pains HPI Jaspreet Costa is a 72 year old male who presents here today for a [place] ED follow up. Pt here today for an ED follow up. Pt has not been seen in the office since 2019. Here with his Significant other, Romana. His insurance company sends a doctor out to his home 2 x a year and does an exam on him. They do not do any lab work. They do advise he follow up with his PCP regularly. No bowel, Gi, or urinary issues. Takes Metamucil BID and alocure supplement together for constipation which works great to keep his bowels moving. Has prostate cancer that is causing his urinary issues, follows with [facility] Urologist Dr. Jorge. Getting Eligard injections every 3 months and Xtandi 40 mg 2 pills once daily. Also getting Zometa injections every 3 months as well. He states that it moved to bone cancer so he sees Hem/onc Dr. Lyn. Dr. Lyn has him taking Vitamin D3 50,000 international unit(s) weekly. He states he complained to Dr. Lyn about this a year ago because it was becoming more continuous. He had [place] Cardiac Perf Stress/Exercise test because the chest pain. He states that time the pain was not compared to his pain that caused him to go to ER. He doesn't not recall what side the chest pain was on last year when he complained about it. He admits that he gets light headed when he goes from sitting to standing, had this looked into and was told his BP doesn't change . He states that he is aware of this, has had since High School and just holds on to things or moves slowly to prevent falls. Pt called into the office and spoke with a Triage Nurse regarding chest pain. He was advised to go to the ED. He states all his life he has had issues with getting sharp chest pains intermittently that lasts up to 30 seconds then resolves every 2-3 months. Pain was on right side chest and down right arm. He states he had this same pain however it returned 12 hours later. Pt stated that the pain was there no matter what activities he did. He stated EKG was done and he was ready to go home however ER wanted to do more cardiac testing. He had CXR, ruled out blood clots, did labs. He was treated for acid reflux, started on Protonix 40 mg daily. He isn't convinced it is reflux related because eating does not make it worse or better. He c/o body aches, headache and nausea while on Protonix, only used for 3 days, stopped it and started on OTC Ginseng Root once daily. He states since being home he has had very little pain, went to ER with pain at 8/10, today it is only 1 or 2/10, calls it more of an annoyance. He denies any SOB or dizziness when he has the chest pains. He does not get chest pain when pushed on. Dehydration does not seem to be a factor. . DM: has been following with Pharmacist Jacquelin. He is taking Lantus 65 units daily, Farxiga 10 mg once daily, Trulicity 4.5 mg once a week. BS running between 120-180. He denies any hypoglycemic episodes that they are aware of but possibly. There are days he comes in from working and he is very fatigued and wore out, he has to lay down and nap. They have not checked BS readings when he is feeling like that but plan to start. Advised not to skip any dosages of his medications or insulin unless his BS are very low. Lipid: not taking any statins. Tries to watch diet. He enjoys working outdoors and being active with tasks. ABHINAV: Uses his CPAP/BiPAP every night which works well for him. He states its a must. Ears: has been told he doesn't hear or listen well. Has had wax build up in ears before. Skin: several moles and lesion on the back. They do not bother him, no changes. Eye: left; small cyst to the eyelid, no pain, no drainage. He has seen eye doctor who has not been concerned about it. ED visit from 01/12/23: HPI History of Present Illness Chief Complaint: Chest Pain Informant: patient Onset/Context/Timing Onset: Yesterday (at 1500) Activity at onset: sudden and onset Timing: Continuous Quality: Positive for Pain ( needle ) Location: Right Chest (radiating down RUE) Current Severity: Moderate Maximum Severity: Moderate Worsened By: Nothing; Not Worsened By Exertion, Movement of Arm, Movement of Torso, Breathing or Coughing Narrative Narrative: 72-year-old male presents with needle-like right-sided chest pain behind his breast but feels like it is on the inside that has been persistent since around 19 hours prior to presentation. He states he has had this pain all my life but only for brief periods of time, and this has been more persistent. He had an episode that lasted a while last year and ended up seeing cardiology getting a stress test that was negative. He has no history of coronary disease that he knows of. He has no history of thromboembolic disease. 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 He cannot make it worse by moving, changing position, taking deep breaths, or eating. He currently is being treated with a hormonal therapy for metastatic prostate cancer, metastatic to bone. Medical decision making narrative: This is not likely to be cardiac in etiology, obtained a troponin given that he has had constant unrelenting discomfort for 19 hours, in order to rule out acutecoronary syndrome and it is negative. Chest x-ray 2 views of my interpretation negative for any acute, radiology in agreement. Cannot use the PERC rule since he is over the age of 50, so given the fact that he has been having this for a long time and I think it is very unlikely to be a pulmonary embolus, he does have metastatic prostate cancer and is at risk for PE, so we did obtain a D-dimer. That is negative, below the low range, well within normal limits, which essentially rules out acute pulmonary embolus. After the GI cocktail and aspirin he was given, the patient feels much better. I am going to place him leigha PPI for 2 weeks and refer him to his primary care doctor, I do not think he needs to be admitted, his heart score is high because of his age and a history of documented coronary disease, but I do not think this is cardiac in etiology and they are agreeing in that plan. Past medical history, appointments, medications, allergies reviewed. Previous Medical History PAST MEDICAL HISTORY Diagnosis Date Allergic rhinitis, cause unspecified Cancer (HCC) Diabetes mellitus (HCC) 07/03/2015 Irritable bowel syndrome Obstructive sleep apnea Other and unspecified disc disorder of unspecified region Intervertebral disc disorders Other and unspecified hyperlipidemia Unspecified sleep apnea Previous Surgical History PAST SURGICAL HISTORY Procedure Laterality Date COLONOSCOPY hyperplastic polyp, prostate nodule ORCHIECTOMY SIMPLE SCROTAL/INGUINAL APPROACH Orchiectomy PAST SURGICAL HISTORY OF N/A 02/28/19 TURP TRURL ELECTROSURG RESCJ PROSTATE BLEED COMPLETE 02/14/2019 TURP Family History FAMILY HISTORY Problem Relation Age of Onset Coronary Artery Disease Mother Stroke Mother Hypertension Mother Diabetes Sister Patient Allergies ALLERGIES Allergen Reactions Metformin Intolerance GI upset Environmental Other* Lipitor [Atorvastat* Other: See Comments elevated liver enzyme- muscle ache Current Medications Current Outpatient Medications on File Prior to Visit Medication Sig enzalutamide (XTANDI) 40 mg Take 2 capsules (80mg) by mouth once daily. aspirin 81 mg cap Take 81 mg by mouth once daily. dapagliflozin (FARXIGA) 10 mg tablet Take 1 tablet by mouth daily with breakfast. insulin glargine (LANTUS SOLOSTAR U-100 INSULIN) 100 unit/mL (3 mL) Inject 65 Units subcutaneously daily at bedtime. ergocalciferol 50,000 unit capsule (VITAMIN D2, DRISDOL) Take 1 capsule by mouth one time a week. dulaglutide (TRULICITY) 4.5 mg/0.5 mL pen injector Inject 4.5 mg subcutaneously one time a week. blood sugar diagnostic (ONETOUCH ULTRA TEST) test strip Test blood sugars once daily as needed. Dx: E11.65. Insulin: No fexofenadine HCl (ANDREY ALLERGY ORAL) Take by mouth as needed. Insulin Davis, Disposable, (BD ULTRA-FINE NEVA PEN NEEDLE) 32 gauge x Use one needle for each dose. 1/day. CPAP Initiate Auto PAP @ 5-20 cm of water with humidification. Mask (per patient preference) optional chin strap (if indicated) , filters, tubing, humidifier and lifetime supplies. CPAP Initiate Auto PAP @ 5-20 cm of water with humidification. Mask (per patient preference) optional chin strap (if indicated) , filters, tubing, humidifier and lifetime supplies. psyllium husk, with sugar, (METAMUCIL FREE) 3 gram/7 gram powd Take by mouth. Taking once daily calcium citrate (CITRACAL ORAL) Take 2 tablets by mouth twice daily. leuprolide acetate (ELIGARD SUBCUTANEOUS) Inject subcutaneously every 3 months. Fish Oil-Shirley-3 Fatty Acids 300-1,000 mg cap 1 capsule. Daily Blood-Glucose Meter monitoring kit Glucose Meter of Choice - Kit - Dx: Type 2 DM - Uncontrolled . Check blood sugar once daily as needed. Lancets lancets Test blood sugar oncw daily. Dx: Type 2 DM - Uncontrolled Insulin: No BIPAP Use as directed No current facility-administered medications on file prior to visit. Social History Social History Tobacco Use Smoking status: Never Smokeless tobacco: Never Vaping Use Vaping Use: Never used Substance Use Topics Alcohol use: No Drug use: No EXAM: BP 120/80 Pulse 74 Resp 16 Wt (!) 144.3 kg (318 lb 3.2 oz) BMI 39.98 kg/m General Appearance: Well appearing, alert, in no acute distress, well-hydrated, well nourished. and Overweight. Skin: several age related lesion, seborrheic keratosis Ears: External ears normal, canals clear. Eye: left; small cyst to the eye lid Lungs: Lungs clear to auscultation. No wheezing, rhonchi, rales.. Heart: RRR without murmur, gallop, or rubs. No ectopy. Health Maintenance List PNEUMOCOCCAL: 65+(1 - PCV) Never done SHINGRIX VACCINE(1 of 2) Never done DIABETIC FOOT EXAM due on 06/06/2019 ANNUAL PCP TEAM CHRONIC DISEASE VISIT due on 07/31/2020 COVID-19 VACCINE(4 - Moderna series) due on 11/04/2021 LDL CHOLESTEROL due on 06/10/2022 ADVANCE DIRECTIVE DISCUSSION Never done DEPRESSION ASSESSMENT Never done HBA1C due on 11/02/2022 INFLUENZA(1) due on 03/04/2023 DILATED RETINAL EXAM due on 07/26/2023 URINE ALBUMIN:CREATININE RATIO due on 10/30/2023 DTAP,TDAP,TD(3 - Td or Tdap) due on 06/10/2025 COLORECTAL CANCER SCREENING due on 02/13/2029 HEPATITIS C SCREENING Completed HPV VACCINE Aged Out Data reviewed [facility] ER reports 01/12/23 ASSESSMENT/PLAN: 1. Chest pain, unspecified type - ICD9: 786.50, ICD10: R07.9 (primary diagnosis) Atypical chest pain, symptoms are not consistent with cardiac ischemia due to accompanying GI symptoms and localization of the pain possible etiology include GERD and musculoskeletal No further treatment Continue to monitor, notify office if any new or worsening sx. Continue to use Ginseng Root to help with reflux sx Stop Protonix due to side effects 2. Type 2 diabetes mellitus without complication, unspecified whether parts counterman insulin use (HCC) - ICD9: 250.00, ICD10: E11.9 - Controlled - Continue current medications - Counseled on healthy diet and regular exercise - Discussed need for and benefit of weight loss. BMI 39.98 kg/(m^2) - DAPAGLIFLOZIN PROPANEDIOL 10 MG TABLET 3. Morbid obesity (HCC) - ICD9: 278.01, ICD10: E66.01 Recommend healthy diet and exercise 4. Prostate cancer (HCC) - ICD9: 185, ICD10: C61 Continue current medications.in Continue with Urologist and Hem/Onc 5. Obstructive sleep apnea syndrome - ICD9: 327.23, ICD10: G47.33 Continue with ABHINAV machine Follow up once a year or sooner if needed. Will notify of lab results. I agree with the Chief Complaint, ROS, and Past Histories independently gathered by the clinical legal support assistant and the remaining scribed note accurately describes my personal service to the patient. Medical Decision Making: Problems: Moderate: 2+ stable chronic illnesses Risk: Moderate: Drug management Medical Decision Making Level: 4 - Moderate Megan Loyd MD The documentation for this note was completed by Tina Spivey Ma acting as scribe for Megan Loyd MD. January 20, 2023 2:12 PM. Tina Spivey Ma documented in this encounter [facility] 01-13-2023 Miscellaneous Notes Noted I agree with the advice given Megan Loyd MD Patient calling said he has history of chest pain and usually goes away in 10 minutes. Patient said yesterday afternoon was outside working and developed chest pain with radiation down his right arm, he is not feeling well today. Advised needs to go to ER for evaluation. Aware note is being sent to PCP. documented in this encounter [facility] 01-11-2023 Note Patient Outreach (IN TMMN) JASPREET COSTA ([id number]) 1950 M Date Time Provider Department 01/11/23 MEGAN LOYD During your visit today, we recorded the following information about you: Allergies As of Date: 01/11/2023 Noted Allergy Reaction METFORMIN 04/04/2019 5 - Intolerance Comments: GI upset environmental Other] [Other] 04/26/2006 LIPITOR (ATORVASTATIN CALCIUM) 04/28/2005 14 - Other: See Comments Comments: elevated liver enzyme- muscle ache Date Reviewed: 10/29/2022 Reviewed by: Tai Carvalho Ma - Fully Assessed Visit Diagnosis:Diabetes mellitus (HCC) [E11.9] Order(s):HGB A1C [[id number]] Order #: [id number] FUTURE Prescriptions as of 01/14/2023 - enzalutamide (XTANDI) 40 mg Take 2 capsules (80mg) by mouth once daily. - aspirin 81 mg cap Take 81 mg by mouth once daily. - dapagliflozin (FARXIGA) 10 mg tablet Take 1 tablet by mouth daily with breakfast. - insulin glargine (LANTUS SOLOSTAR U-100 INSULIN) 100 unit/mL (3 mL) Inject 65 Units subcutaneously daily at bedtime. - ergocalciferol 50,000 unit capsule (VITAMIN D2, DRISDOL) Take 1 capsule by mouth one time a week. - dulaglutide (TRULICITY) 4.5 mg/0.5 mL pen injector Inject 4.5 mg subcutaneously one time a week. - blood sugar diagnostic (AbilToUCH ULTRA TEST) test strip Test blood sugars once daily as needed. Dx: E11.65. Insulin: No - fexofenadine HCl (ANDREY ALLERGY ORAL) Take by mouth as needed. - Insulin Davis, Disposable, (BD ULTRA-FINE NEVA PEN NEEDLE) 32 gauge x 5/32 Use one needle for each dose. 1/day. - CPAP Initiate Auto PAP @ 5-20 cm of water with humidification. Mask (per patient preference) optional chin strap (if indicated) , filters, tubing, humidifier and lifetime supplies. - CPAP Initiate Auto PAP @ 5-20 cm of water with humidification. Mask (per patient preference) optional chin strap (if indicated) , filters, tubing, humidifier and lifetime supplies. - psyllium husk, with sugar, (METAMUCIL FREE) 3 gram/7 gram powd Take by mouth. Taking once daily - calcium citrate (CITRACAL ORAL) Take 2 tablets by mouth twice daily. - leuprolide acetate (ELIGARD SUBCUTANEOUS) Inject subcutaneously every 3 months. - Fish Oil-Shirley-3 Fatty Acids 300-1,000 mg cap 1 capsule. Daily - Blood-Glucose Meter monitoring kit Glucose Meter of Choice - Kit - Dx: Type 2 DM - Uncontrolled E11.65. Check blood sugar once daily as needed. - Lancets lancets Test blood sugar oncw daily. Dx: Type 2 DM - Uncontrolled E11.65 Insulin: No - BIPAP Use as directed Meds Comments as of 04/04/2019: Citracal 2 pills twice daily. Problem List As Of Date 01/11/2023 Noted Resolved Sleep apnea [G47.30] Mixed hyperlipidemia [E78.2] ALLERGIC RHINITIS NOS [J30.9] DISC DIS NEC/NOS-UNSPEC [M51.9] IRRITABLE COLON [K58.9] ESOPHAGEAL REFLUX [K21.9] 04/29/2005 Impotence of organic origin [N52.9] 04/26/2006 ASTHMA UNSPECIFIED [J45.909] 10/25/2007 Hypersomnia, unspecified [G47.10] 09/16/2010 07/29/2016 Actinic Keratoses: Premalignant AK's [L57.0] 07/18/2011 07/29/2016 Irritated//Inflamed Seborrheic Keratosis [L82.0]07/18/2011 07/29/2016 Viral warts [B07.9] 07/18/2011 07/29/2016 Cutaneous skin tags [L91.8] 07/18/2011 07/29/2016 Other seborrheic keratosis [L82.1] 07/18/2011 07/29/2016 Actinic skin damage [L57.8] 07/18/2011 07/29/2016 Solar lentigines [L81.4] 07/18/2011 07/29/2016 Melanocytic nevus of trunk [D22.5] 07/18/2011 07/29/2016 Morbid obesity [E66.01] 10/01/2013 Diabetes mellitus (HCC) [E11.9] 07/03/2015 Prostate cancer (HCC) [C61] 03/13/2019 Malignant neoplasm metastatic to bone (HCC) [C7*03/13/2019 Encounter Status:Closed by KEVYN CRAFT on 01/14/23 [facility] 01-03-2023 Note HNO ID: [id number] Author: Abby Villagran (Dining Room Attendant) Service: ? Author Type: ? Type: Progress Notes Filed: 01/06/2023 12:23 AM Note Text: [facility] Refill Assessment Medication(s): Xtandi No new clinical information to review since last SPP refill encounter. Next OV scheduled 04/15/23 - labs 01/21/2023. ALLERGIES Allergen Reactions Metformin Intolerance GI upset Environmental Other* Lipitor [Atorvastat* Other: See Comments elevated liver enzyme- muscle ache Patient's current medication list and adherence status to current therapy were reviewed by Specialty Pharmacy clinical pharmacist to identify any new drug interactions or non-compliance to therapy. Therapy continues to be appropriate for disease, patient response, and medical condition. Verification of therapeutic benefit and effectiveness with current therapy was completed. Adverse events, barriers in adherence, and side effects were assessed and addressed if applicable. Will proceed with refill with no changes in therapy - patient progressing towards achieving therapeutic goals based on medication-specific laboratory parameters, disease state markers and outcomes. Amy Pichardo, PharmD Clinical Pharmacist, Oncology [facility] P: , F: Pool: P [facility] Pool #: [id number] Kinesiology Internship Assessment Patient confirmed: Yes Med/dose confirmed: Yes Supplies needed: No supplies needed Missed doses: No Estimated days supply on hand: 5 Copay amount: 0 Delivery method: FedEx Signature required: No Delivery address: [address] [place] [address], [place] [facility] [address] Delivery date: 01/07/23 Questions or concerns for the pharmacist?: No [facility] Visit Assessment - Hematology/Oncology: Ivent complete: No Assessment to use: Refill Vaccination Assessment: Date of influenza vaccination reminder: 03/26/2022 Date of most recent vaccination assessment: 03/26/2022 Refill Assessment: Lab monitoring inclusive of CBC, Chem-7, and other labs as pertinent for therapy: Yes Chemo cycle timing assessment: N/A Screening for infection: Yes Adverse reactions and mitigation: Yes Medication changes and interaction assessment: Yes Assessment of injection issues: N/A Additional Assessment: Assessment of continued need for prophylactic medications at regular intervals: Yes Radiology procedure timing to assess for disease progression: Yes Scheduled future appointments: Yes Abby Villagran (Dining Room Attendant) [facility] 12-06-2022 Note HNO ID: [id number] Author: Abby Villagran (Dining Room Attendant) Service: ? Author Type: ? Type: Progress Notes Filed: 12/08/2022 1:19 PM Note Text: [facility] Refill Assessment Medication(s): Xtandi No new clinical information to review since last SPP refill encounter. Next OV scheduled 04/15/23 - labs 01/2023. ALLERGIES Allergen Reactions Metformin Intolerance GI upset Environmental Other* Lipitor [Atorvastat* Other: See Comments elevated liver enzyme- muscle ache Patient's current medication list and adherence status to current therapy were reviewed by Specialty Pharmacy clinical pharmacist to identify any new drug interactions or non-compliance to therapy. Therapy continues to be appropriate for disease, patient response, and medical condition. Verification of therapeutic benefit and effectiveness with current therapy was completed. Adverse events, barriers in adherence, and side effects were assessed and addressed if applicable. Will proceed with refill with no changes in therapy - patient progressing towards achieving therapeutic goals based on medication-specific laboratory parameters, disease state markers and outcomes. Deanne Hunter, PharmD Clinical Pharmacist, Oncology [facility] P: , F: Pool: P [facility] Pool #: [id number] Kinesiology Internship Assessment Patient confirmed: Yes Med/dose confirmed: Yes Supplies needed: No supplies needed Missed doses: No Estimated days supply on hand: 4 Copay amount: 0 Delivery method: FedEx Signature required: No Delivery address: [address] [place] [address], [place] [facility] [address] Delivery date: 12/10/22 Questions or concerns for the pharmacist?: No [facility] Visit Assessment - Hematology/Oncology: Ivent complete: No Assessment to use: Refill Vaccination Assessment: Date of influenza vaccination reminder: 03/26/2022 Date of most recent vaccination assessment: 03/26/2022 Refill Assessment: Lab monitoring inclusive of CBC, Chem-7, and other labs as pertinent for therapy: Yes Chemo cycle timing assessment: N/A Screening for infection: Yes Adverse reactions and mitigation: Yes Medication changes and interaction assessment: Yes Assessment of injection issues: N/A Additional Assessment: Assessment of continued need for prophylactic medications at regular intervals: Yes Radiology procedure timing to assess for disease progression: Yes Scheduled future appointments: Yes Abby Villagran (Dining Room Attendant) [facility] 11-12-2022 Note HNO ID: [id number] Author: Jacquelin López [facility] Service: ? Author Type: Pharmacist Type: Progress Notes Filed: 11/12/2022 4:51 PM Note Text: Primary Care Pharmacy Visit CC (Reason for Consult): DM Goal: A1c<8% Last Collaborating Physician Visit: 07/31/2019 Jaspreet Costa is a 72 year old male presenting for follow up visit by telephone. Patient consents to pharmacy collaborative practice agreement. . 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 Patient denies CP, SOB, CAPUTO, blurred vision, dizziness or lightheadedness Patient denies nausea, vomiting, diarrhea, abdominal pain Patient denies symptoms of hypoglycemia (sweating, anxiety, palpitations, hunger, and tremor) Patient denies symptoms of hyperglycemia (polyuria, polydipsia, polyphagia) Patient denies potential medication adverse effects Past medical, family and social history reviewed and updated. MEDICATIONS: Adherence: denies missed doses ALLERGIES Allergen Reactions Metformin Intolerance GI upset Environmental Other* Lipitor [Atorvastat* Other: See Comments elevated liver enzyme- muscle ache Current Outpatient Medications Medication Sig Dispense Refill aspirin 81 mg cap Take 81 mg by mouth once daily. dapagliflozin (FARXIGA) 10 mg tablet Take 1 tablet by mouth daily with breakfast. 30 tablet 2 insulin glargine (LANTUS SOLOSTAR U-100 INSULIN) 100 unit/mL (3 mL) Inject 65 Units subcutaneously daily at bedtime. 30 mL 5 enzalutamide (XTANDI) 40 mg Take 2 capsules (80mg) by mouth once daily. 120 capsule 1 ergocalciferol 50,000 unit capsule (VITAMIN D2, DRISDOL) Take 1 capsule by mouth one time a week. 26 capsule 1 dulaglutide (TRULICITY) 4.5 mg/0.5 mL pen injector Inject 4.5 mg subcutaneously one time a week. 6 mL 4 blood sugar diagnostic (AbilToUCH ULTRA TEST) test strip Test blood sugars once daily as needed. Dx: E11.65. Insulin: No 50 Each 11 fexofenadine HCl (ANDREY ALLERGY ORAL) Take by mouth as needed. Insulin Davis, Disposable, (BD ULTRA-FINE NEVA PEN NEEDLE) 32 gauge x Use one needle for each dose. 1/day. 30 Each 11 CPAP Initiate Auto PAP @ 5-20 cm of water with humidification. Mask (per patient preference) optional chin strap (if indicated) , filters, tubing, humidifier and lifetime supplies. 1 Device 0 CPAP Initiate Auto PAP @ 5-20 cm of water with humidification. Mask (per patient preference) optional chin strap (if indicated) , filters, tubing, humidifier and lifetime supplies. 1 Device 0 psyllium husk, with sugar, (METAMUCIL FREE) 3 gram/7 gram powd Take by mouth. Taking once daily calcium citrate (CITRACAL ORAL) Take 2 tablets by mouth twice daily. leuprolide acetate (ELIGARD SUBCUTANEOUS) Inject subcutaneously every 3 months. Fish Oil-Shirley-3 Fatty Acids 300-1,000 mg cap 1 capsule. Daily Blood-Glucose Meter monitoring kit Glucose Meter of Choice - Kit - Dx: Type 2 DM - Uncontrolled E11.65. Check blood sugar once daily as needed. 1 Each 0 Lancets lancets Test blood sugar oncw daily. Dx: Type 2 DM - Uncontrolled E11.65 Insulin: No 50 Each 11 BIPAP Use as directed 1 machine 0 No current facility-administered medications for this visit. EXAM: Last 3 Encounter BP Readings: Date: BP: 10/29/2022 125/71 08/06/2022 135/74 05/14/2022 142/72 Wt: 144.5 kg (318 lb 8 oz) BMI: 40.02 kg/(m2) LABS: reviewed Lab Results Component Value Date HBA1C 8.5 08/05/2022 HBA1C 8.5 02/19/2022 HBA1C 8.3 11/27/2021 HBA1C 9.8 06/10/2021 HBA1C 11.4 03/20/2021 HBA1C 10.1 09/04/2020 Glucose 137 10/29/2022 BUN 14 10/29/2022 Creatinine 0.98 10/29/2022 Sodium 137 10/29/2022 Potassium 4.3 10/29/2022 Chloride 101 10/29/2022 CO2 26 10/29/2022 Protein, Total 7.2 10/29/2022 Albumin 4.2 10/29/2022 Calcium 9.6 10/29/2022 Alkaline Phosphatase 80 10/29/2022 Bilirubin, Total 0.3 10/29/2022 AST 35 10/29/2022 ALT 44 10/29/2022 Lab Results Component Value Date CHOL 228 06/10/2021 LDL 131 06/10/2021 HDL 58 06/10/2021 TG 195 06/10/2021 Albumin/Creat Ratio (mg/g) Date Value 10/29/2022 <29 eGFR- (no units) Date Value 06/10/2021 >60 PHARMACOTHERAPY ASSESSMENT/PLAN: 1. Type 2 diabetes mellitus without complication, unspecified whether correction insulin use (HCC) - ICD9: 250.00, ICD10: E11.9 A1c goal < 8%; not at goal (last A1c 8.5%); SMBG stable on current regimen. Will continue same regimen and advised to complete blood work as ordered by PCP. Continue Farxiga 10 mg once daily Continue Insulin glargine 65 units daily at bed (more content not included)... [facility] 11-12-2022 History of Present illness Narrative Primary Care Pharmacy Visit CC (Reason for Consult): DM Goal: A1c<8% Last Collaborating Physician Visit: 07/31/2019 Jaspreet Costa is a 72 year old male presenting for follow up visit by telephone. Patient consents to pharmacy collaborative practice agreement. . 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 Patient denies CP, SOB, CAPUTO, blurred vision, dizziness or lightheadedness Patient denies nausea, vomiting, diarrhea, abdominal pain Patient denies symptoms of hypoglycemia (sweating, anxiety, palpitations, hunger, and tremor) Patient denies symptoms of hyperglycemia (polyuria, polydipsia, polyphagia) Patient denies potential medication adverse effects Past medical, family and social history reviewed and updated. MEDICATIONS: Adherence: denies missed doses ALLERGIES Allergen Reactions Metformin Intolerance GI upset Environmental Other* Lipitor [Atorvastat* Other: See Comments elevated liver enzyme- muscle ache Current Outpatient Medications Medication Sig Dispense Refill aspirin 81 mg cap Take 81 mg by mouth once daily. dapagliflozin (FARXIGA) 10 mg tablet Take 1 tablet by mouth daily with breakfast. 30 tablet 2 insulin glargine (LANTUS SOLOSTAR U-100 INSULIN) 100 unit/mL (3 mL) Inject 65 Units subcutaneously daily at bedtime. 30 mL 5 enzalutamide (XTANDI) 40 mg Take 2 capsules (80mg) by mouth once daily. 120 capsule 1 ergocalciferol 50,000 unit capsule (VITAMIN D2, DRISDOL) Take 1 capsule by mouth one time a week. 26 capsule 1 dulaglutide (TRULICITY) 4.5 mg/0.5 mL pen injector Inject 4.5 mg subcutaneously one time a week. 6 mL 4 blood sugar diagnostic (ONETOUCH ULTRA TEST) test strip Test blood sugars once daily as needed. Dx: E11.65. Insulin: No 50 Each 11 fexofenadine HCl (ANDREY ALLERGY ORAL) Take by mouth as needed. Insulin Davis, Disposable, (BD ULTRA-FINE NEVA PEN NEEDLE) 32 gauge x 5/32 Use one needle for each dose. 1/day. 30 Each 11 CPAP Initiate Auto PAP @ 5-20 cm of water with humidification. Mask (per patient preference) optional chin strap (if indicated) , filters, tubing, humidifier and lifetime supplies. 1 Device 0 CPAP Initiate Auto PAP @ 5-20 cm of water with humidification. Mask (per patient preference) optional chin strap (if indicated) , filters, tubing, humidifier and lifetime supplies. 1 Device 0 psyllium husk, with sugar, (METAMUCIL FREE) 3 gram/7 gram powd Take by mouth. Taking once daily calcium citrate (CITRACAL ORAL) Take 2 tablets by mouth twice daily. leuprolide acetate (ELIGARD SUBCUTANEOUS) Inject subcutaneously every 3 months. Fish Oil-Shirley-3 Fatty Acids 300-1,000 mg cap 1 capsule. Daily Blood-Glucose Meter monitoring kit Glucose Meter of Choice - Kit - Dx: Type 2 DM - Uncontrolled E11.65. Check blood sugar once daily as needed. 1 Each 0 Lancets lancets Test blood sugar oncw daily. Dx: Type 2 DM - Uncontrolled E11.65 Insulin: No 50 Each 11 BIPAP Use as directed 1 machine 0 No current facility-administered medications for this visit. EXAM: Last 3 Encounter BP Readings: Date: BP: 10/29/2022 125/71 08/06/2022 135/74 05/14/2022 142/72 Wt: 144.5 kg (318 lb 8 oz) BMI: 40.02 kg/(m^2) LABS: reviewed Lab Results Component Value Date HBA1C 8.5 08/05/2022 HBA1C 8.5 02/19/2022 HBA1C 8.3 11/27/2021 HBA1C 9.8 06/10/2021 HBA1C 11.4 03/20/2021 HBA1C 10.1 09/04/2020 Glucose 137 10/29/2022 BUN 14 10/29/2022 Creatinine 0.98 10/29/2022 Sodium 137 10/29/2022 Potassium 4.3 10/29/2022 Chloride 101 10/29/2022 CO2 26 10/29/2022 Protein, Total 7.2 10/29/2022 Albumin 4.2 10/29/2022 Calcium 9.6 10/29/2022 Alkaline Phosphatase 80 10/29/2022 Bilirubin, Total 0.3 10/29/2022 AST 35 10/29/2022 ALT 44 10/29/2022 Lab Results Component Value Date CHOL 228 06/10/2021 LDL 131 06/10/2021 HDL 58 06/10/2021 TG 195 06/10/2021 Albumin/Creat Ratio (mg/g) Date Value 10/29/2022 <29 eGFR- (no units) Date Value 06/10/2021 >60 PHARMACOTHERAPY ASSESSMENT/PLAN: 1. Type 2 diabetes mellitus without complication, unspecified whether parts counterman insulin use (HCC) - ICD9: 250.00, ICD10: E11.9 A1c goal < 8%; not at goal (last A1c 8.5%); SMBG stable on current regimen. Will continue same regimen and advised to complete blood work as ordered by PCP. Continue Farxiga 10 mg once daily Continue Insulin glargine 65 units daily at bedtime Continue Trulicity 4.5 mg weekly Follow up: Patient is not scheduled to see PCP team. Overdue for PCP follow up, reminded patient to schedule follow up. Patient to follow up with pharmD once labs completed. Jacquelin López, LeeannaD, BCACP Primary Care Clinical Pharmacist The majority of the pharmacy visit (> 50%) was spent counseling and/or coordinating care for the patient. interaction: telephonic time was 15 minutes. documented in this encounter [facility] 11-09-2022 Note Patient Outreach (IN TMMN) JASPREET COSTA ([id number]) 1950 Date Time Provider Department 11/09/22 MEGAN LOYD During your visit today, we recorded the following information about you: Allergies As of Date: 11/09/2022 Noted Allergy Reaction METFORMIN 04/04/2019 5 - Intolerance Comments: GI upset environmental Other] [Other] 04/26/2006 LIPITOR (ATORVASTATIN CALCIUM) 04/28/2005 14 - Other: See Comments Comments: elevated liver enzyme- muscle ache Date Reviewed: 10/29/2022 Reviewed by: Tai Carvalho Ma - Fully Assessed Visit Diagnosis:Diabetes mellitus (HCC) [E11.9] Order(s):HGB A1C [[id number]] Order #: [id number] FUTURE Prescriptions as of 11/12/2022 - aspirin 81 mg cap Take 81 mg by mouth once daily. - dapagliflozin (FARXIGA) 10 mg tablet Take 1 tablet by mouth daily with breakfast. - insulin glargine (LANTUS SOLOSTAR U-100 INSULIN) 100 unit/mL (3 mL) Inject 65 Units subcutaneously daily at bedtime. - enzalutamide (XTANDI) 40 mg Take 2 capsules (80mg) by mouth once daily. - ergocalciferol 50,000 unit capsule (VITAMIN D2, DRISDOL) Take 1 capsule by mouth one time a week. - dulaglutide (TRULICITY) 4.5 mg/0.5 mL pen injector Inject 4.5 mg subcutaneously one time a week. - blood sugar diagnostic (ONETOUCH ULTRA TEST) test strip Test blood sugars once daily as needed. Dx: E11.65. Insulin: No - fexofenadine HCl (ANDREY ALLERGY ORAL) Take by mouth as needed. - Insulin Davis, Disposable, (BD ULTRA-FINE NEVA PEN NEEDLE) 32 gauge x 532 Use one needle for each dose. 1/day. - CPAP Initiate Auto PAP @ 5-20 cm of water with humidification. Mask (per patient preference) optional chin strap (if indicated) , filters, tubing, humidifier and lifetime supplies. - CPAP Initiate Auto PAP @ 5-20 cm of water with humidification. Mask (per patient preference) optional chin strap (if indicated) , filters, tubing, humidifier and lifetime supplies. - psyllium husk, with sugar, (METAMUCIL FREE) 3 gram/7 gram powd Take by mouth. Taking once daily - calcium citrate (CITRACAL ORAL) Take 2 tablets by mouth twice daily. - leuprolide acetate (ELIGARD SUBCUTANEOUS) Inject subcutaneously every 3 months. - Fish Oil-Shirley-3 Fatty Acids 300-1,000 mg cap 1 capsule. Daily - Blood-Glucose Meter monitoring kit Glucose Meter of Choice - Kit - Dx: Type 2 DM - Uncontrolled E11.65. Check blood sugar once daily as needed. - Lancets lancets Test blood sugar oncw daily. Dx: Type 2 DM - Uncontrolled E11.65 Insulin: No - BIPAP Use as directed Meds Comments as of 04/04/2019: Citracal 2 pills twice daily. Problem List As Of Date 11/09/2022 Noted Resolved Sleep apnea [G47.30] Mixed hyperlipidemia [E78.2] ALLERGIC RHINITIS NOS [J30.9] DISC DIS NEC/NOS-UNSPEC [M51.9] IRRITABLE COLON [K58.9] ESOPHAGEAL REFLUX [K21.9] 04/29/2005 Impotence of organic origin [N52.9] 04/26/2006 ASTHMA UNSPECIFIED [J45.909] 10/25/2007 Hypersomnia, unspecified [G47.10] 09/16/2010 07/29/2016 Actinic Keratoses: Premalignant AK's [L57.0] 07/18/2011 07/29/2016 Irritated//Inflamed Seborrheic Keratosis [L82.0]07/18/2011 07/29/2016 Viral warts [B07.9] 07/18/2011 07/29/2016 Cutaneous skin tags [L91.8] 07/18/2011 07/29/2016 Other seborrheic keratosis [L82.1] 07/18/2011 07/29/2016 Actinic skin damage [L57.8] 07/18/2011 07/29/2016 Solar lentigines [L81.4] 07/18/2011 07/29/2016 Melanocytic nevus of trunk [D22.5] 07/18/2011 07/29/2016 Morbid obesity [E66.01] 10/01/2013 Diabetes mellitus (HCC) [E11.9] 07/03/2015 Prostate cancer (HCC) [C61] 03/13/2019 Malignant neoplasm metastatic to bone (HCC) [C7*03/13/2019 Encounter Status:Closed by BrainsgateUSER on 11/12/22 [facility] 11-03-2022 Miscellaneous Notes Message relayed to patient. Can let him know the urinalysis and urine culture did not show any sign of bladder infection. There was a lot of sugar in the urine which is likely causing his urinary frequency and urgency. I would encourage him to talk with his PCP about tighter blood sugar control. Duong Lyn DO documented in this encounter [facility] 11-01-2022 Note HNO ID: [id number] Author: Shelli Duvall Service: ? Author Type: ? Type: Progress Notes Filed: 11/06/2022 9:56 PM Note Text: [facility] Special[facility] Refill Assessment Medication(s): Xtandi Reviewed OV note on 10/29/22 - increasing urinary frequency and dysuria - ruling out UTI, tolerating 2 capsules (80mg) a day. Labs 10/29/22 reviewed - stable, PSA 0.10. Next clinic visit scheduled 04/15/23 with labs on 01/21/23. ALLERGIES Allergen Reactions Metformin Intolerance GI upset Environmental Other* Lipitor [Atorvastat* Other: See Comments elevated liver enzyme- muscle ache Patient's current medication list and adherence status to current therapy were reviewed by Specialty Pharmacy clinical pharmacist to identify any new drug interactions or non-compliance to therapy. Therapy continues to be appropriate for disease, patient response, and medical condition. Verification of therapeutic benefit and effectiveness with current therapy was completed. Adverse events, barriers in adherence, and side effects were assessed and addressed if applicable. Will proceed with refill with no changes in therapy - patient progressing towards achieving therapeutic goals based on medication-specific laboratory parameters, disease state markers and outcomes. Amy Pichardo, PharmD Clinical Pharmacist, Oncology [facility] P: , F: Pool: P [facility] Pool #: [id number] Kinesiology Internship Assessment Patient confirmed: Yes Med/dose confirmed: Yes Supplies needed: No supplies needed Missed doses: No Estimated days supply on hand: 8 Copay amount: 0 Delivery method: FedEx Signature required: No Delivery address: [address] [place] [id number] Delivery date: 11/09/22 Questions or concerns for the pharmacist?: No [facility] Visit Assessment - Hematology/Oncology: Ivent complete: No Assessment to use: Refill Vaccination Assessment: Date of influenza vaccination reminder: 03/26/2022 Date of most recent vaccination assessment: 03/26/2022 Refill Assessment: Lab monitoring inclusive of CBC, Chem-7, and other labs as pertinent for therapy: Yes Chemo cycle timing assessment: N/A Screening for infection: Yes Adverse reactions and mitigation: Yes Medication changes and interaction assessment: Yes Assessment of injection issues: N/A Additional Assessment: Assessment of continued need for prophylactic medications at regular intervals: Yes Radiology procedure timing to assess for disease progression: Yes Scheduled future appointments: Yes Shelli Duvall [facility] 10-29-2022 Note HNO ID: [id number] Author: Duong Lyn, DO Service: ? Author Type: Physician Type: Progress Notes Filed: 10/29/2022 3:32 PM Note Text: Diagnosis: 1) Castrate sensitive metastatic prostate cancer. HPI: The patient is a 72-year-old male with a past medical history significant for type 2 diabetes, mixed hyperlipidemia and obstructive sleep apnea. Presented to the emergency department at [facility] on 05/11/2019 with a complaint of not feeling well. About a month prior to the visit he was started on metformin for worsening hyperglycemia. He did not tolerate that medication well and he was transitioned in slowing. In the week prior to ER presentation his insulin-requiring onset double. He then developed abdominal distention and a general feeling of malaise. CT A/P 02/11/2019: FINDINGS: The visualized lung bases are unremarkable. The visualized portions of the heart are within normal limits. There is decreased attenuation of the liver consistent with steatosis. Normal gallbladder and extrahepatic biliary system. Normal spleen. There is diffuse atrophy of the pancreas. Normal bilateral adrenal glands. Right perinephric fat stranding or edema. Moderate right hydronephrosis without hydroureter. No obstructing stone. There is also left-sided hydronephrosis and left ureter. Prominent distention of the bladder suggesting urinary retention Normal visualized stomach. Normal small intestine. Prominent gaseous distended loops of colon with fecal retention. There is transition area with wall narrowing in the region of the rectum. Colonic diverticulosis without acute diverticulitis. The appendix is visualized and appears normal. Several prominent nonspecific pelvic lymph nodes. Normal abdominal aorta. Normal inferior vena cava. Normal retroperitoneum. Marked distention of the bladder compatible with urinary retention. Heterogeneous prostate Normal abdominal wall. There are diffuse degenerative changes of the visualized lumbar spine. IMPRESSION: 1. Significant distention of the urinary bladder with bilateral hydronephrosis and hydroureter without evidence of obstructing stone. There is bilateral perinephric fat stranding and edema suggesting inflammation and infection. Recommend placement of Sanchez catheter for decompression of the bladder. 2. There is prominent gaseous distended loops of colon with fecal retention. There appears to be transition point in the rectosigmoid colon with suspicion of wall thickening and underlying mass. Numerous prominent and suspicious pelvic lymph nodes are noted. Significantly serum creatinine was elevated to 8.69 mg/dL. Sanchez catheter was placed and evidently 2 L and urine was drained. Patient was admitted to the hospital for further workup. Serum creatinine decreased to 2.4 mg/dL as of 02/12 and was down to 0.97 mg/dL at the time of discharge on 02/13. PSA on 02/11/2019 was 107.00 ng/mL. He underwent colonoscopy on 02/13/2019. The preparation the colon was noted to be fair. On the prostate, the left lobe was suspicious for a mass about 2-6 cm from the anal verge. There was a 4 mm polyp in the sigmoid colon that was removed with cold biopsy forceps. The examination was otherwise normal. The polyp returned as hyperplastic histology. Patient then underwent outpatient workup of suspicious prostate cancer. He underwent transurethral resection of prostate and transrectal prostate biopsy on 02/20/2019. Pathology: MICROSCOPIC DIAGNOSIS A. Prostate, needle corer biopsy: Adenocarcinoma: Claude grade: 7 (3+4) Cores involved: 3/3 Tissue involved: 60% Greatest tumor length:13 mm Perineural invasion: present B. Prostate, transurethral resection: Minute focus of adenocarcinoma. Claude grade 7 (3+4) Cores involved: 1 Greatest tumor length: 2 mm Bone scan 03/09/2019: FINDINGS: Following the intravenous administration of 22.2 mCi of 99m Tc MDP, whole body bone images reveal: 1. Increased radiopharmaceutical concentration is identified in the right scapula in two separate locations, right iliac wing, the seventh thoracic vertebra posteriorly on the left and right, the left posterior ninth rib, heterogeneously defined in the proximal-distal sternum. 2. Facilitated tracer concentration is noted in the acromioclavicular compartments of both shoulders, right knee, bilateral ankle articulations. 3. The remaining skeletal structures are scintigraphically unremarkable with normal-appearing renal images and urinary bladder activity identified. IMPRESSION: 1. The increase in radiopharmaceutical concentration identified in the right scapula, right iliac wing, seventh thoracic vertebra, left posterior ninth rib, proximal-distal sternum likely represent skeletal metastatic disease. Plain film radiography correlation may be of benefit in the region of the right scapula, right iliac wing and seventh thoracic vertebra. (more content not included)... [facility] 10-29-2022 History of Present illness Narrative Diagnosis: 1) Castrate sensitive metastatic prostate cancer. HPI: The patient is a 72-year-old male with a past medical history significant for type 2 diabetes, mixed hyperlipidemia and obstructive sleep apnea. Presented to the emergency department at [facility] on 05/11/2019 with a complaint of not feeling well. About a month prior to the visit he was started on metformin for worsening hyperglycemia. He did not tolerate that medication well and he was transitioned in slowing. In the week prior to ER presentation his insulin-requiring onset double. He then developed abdominal distention and a general feeling of malaise. CT A/P 02/11/2019: FINDINGS: The visualized lung bases are unremarkable. The visualized portions of the heart are within normal limits. There is decreased attenuation of the liver consistent with steatosis. Normal gallbladder and extrahepatic biliary system. Normal spleen. There is diffuse atrophy of the pancreas. Normal bilateral adrenal glands. Right perinephric fat stranding or edema. Moderate right hydronephrosis without hydroureter. No obstructing stone. There is also left-sided hydronephrosis and left ureter. Prominent distention of the bladder suggesting urinary retention Normal visualized stomach. Normal small intestine. Prominent gaseous distended loops of colon with fecal retention. There is transition area with wall narrowing in the region of the rectum. Colonic diverticulosis without acute diverticulitis. The appendix is visualized and appears normal. Several prominent nonspecific pelvic lymph nodes. Normal abdominal aorta. Normal inferior vena cava. Normal retroperitoneum. Marked distention of the bladder compatible with urinary retention. Heterogeneous prostate Normal abdominal wall. There are diffuse degenerative changes of the visualized lumbar spine. IMPRESSION: 1. Significant distention of the urinary bladder with bilateral hydronephrosis and hydroureter without evidence of obstructing stone. There is bilateral perinephric fat stranding and edema suggesting inflammation and infection. Recommend placement of Sanchez catheter for decompression of the bladder. 2. There is prominent gaseous distended loops of colon with fecal retention. There appears to be transition point in the rectosigmoid colon with suspicion of wall thickening and underlying mass. Numerous prominent and suspicious pelvic lymph nodes are noted. Significantly serum creatinine was elevated to 8.69 mg/dL. Sanchez catheter was placed and evidently 2 L and urine was drained. Patient was admitted to the hospital for further workup. Serum creatinine decreased to 2.4 mg/dL as of 02/12 and was down to 0.97 mg/dL at the time of discharge on 02/13. PSA on 02/11/2019 was 107.00 ng/mL. He underwent colonoscopy on 02/13/2019. The preparation the colon was noted to be fair. On the prostate, the left lobe was suspicious for a mass about 2-6 cm from the anal verge. There was a 4 mm polyp in the sigmoid colon that was removed with cold biopsy forceps. The examination was otherwise normal. The polyp returned as hyperplastic histology. Patient then underwent outpatient workup of suspicious prostate cancer. He underwent transurethral resection of prostate and transrectal prostate biopsy on 02/20/2019. Pathology: MICROSCOPIC DIAGNOSIS A. Prostate, needle corer biopsy: Adenocarcinoma: Claude grade: 7 (3+4) Cores involved: 3/3 Tissue involved: 60% Greatest tumor length:13 mm Perineural invasion: present B. Prostate, transurethral resection: Minute focus of adenocarcinoma. Fairfield grade 7 (3+4) Cores involved: 1 Greatest tumor length: 2 mm Bone scan 03/09/2019: FINDINGS: Following the intravenous administration of 22.2 mCi of 99m Tc MDP, whole body bone images reveal: 1. Increased radiopharmaceutical concentration is identified in the right scapula in two separate locations, right iliac wing, the seventh thoracic vertebra posteriorly on the left and right, the left posterior ninth rib, heterogeneously defined in the proximal-distal sternum. 2. Facilitated tracer concentration is noted in the acromioclavicular compartments of both shoulders, right knee, bilateral ankle articulations. 3. The remaining skeletal structures are scintigraphically unremarkable with normal-appearing renal images and urinary bladder activity identified. IMPRESSION: 1. The increase in radiopharmaceutical concentration identified in the right scapula, right iliac wing, seventh thoracic vertebra, left posterior ninth rib, proximal-distal sternum likely represent skeletal metastatic disease. Plain film radiography correlation may be of benefit in the region of the right scapula, right iliac wing and seventh thoracic vertebra. 2. 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 Current therapy: 1) Eligard q [address] Jorge's office. 2) Xtandi. Presents for ongoing oncologic management. Interim history: Continues on two Xtandi tablets daily due to testicular and breast tenderness at 4 tablets daily. He has been having a lot more frequency during the day associated with dysuria. Has not felt quite right the last few days. No fever. Still working the farm. Hot flashes-- never. PMH, medications and allergies personally reviewed by me today. Any changes documented in appropriate section. ROS: Constitutional: Denies episodes of fever and night sweats. Normal appetite. Neuro: Denies CAPUTO, vertigo, dizziness and imbalance. Denies symptoms of neuropathy. HEENT: No recent change in voice, vision or hearing. Resp: Denies cough, wheeze and hemoptysis. Denies shortness of breath at rest. Denies LEE. CVS: Denies exertional chest pain, PND, orthopnea and LE edema. GI: Denies dysgeusia. Denies symptoms of stomatitis. Denies dysphagia and odynophagia. Denies reflux, n/v, change in bowel habits and abdominal pain. : See above. Endo: See above. Derm: Denies rash. Denies jaundice and diffuse pruritis. Heme: Denies unusual bleeding and unexplained bruising. Psych: Normal mood. PHYSICAL EXAM: Vitals: Blood pressure 125/71, pulse 76, temperature 36.7 C (98.1 F), height 190 cm (6' 2.8 ), weight (!) 144.5 kg (318 lb 8 oz), SpO2 96 %. Well-appearing and in no acute distress. EYES: Sclerae are anicteric bilaterally.. LYMPHATIC: There is no palpable cervical or supraclavicular adenopathy. RESPIRATORY: Inspiratory breath sounds are of normal intensity in all wilkerson. No rales, wheezes or rhonchi. CARDIOVASCULAR: Rhythm is regular. ABDOMEN: The abdomen is nondistended. Extremities: No swelling or edema. SKIN: No jaundice or rash. No petechiae. NEUROLOGIC: lining closer II-XII are grossly intact. No focal motor weakness. MUSCULOSKELETAL: No muscle wasting. LABS: Component Latest Ref Rng & Units 10/29/2022 WBC 3.70 - 11.00 k/uL 6.95 RBC 4.20 - 6.00 m/uL 5.17 Hemoglobin 13.0 - 17.0 g/dL 14.6 Hematocrit 39.0 - 51.0 % 44.3 MCV 80.0 - 100.0 fL 85.7 MCH 26.0 - 34.0 pg 28.2 MCHC 30.5 - 36.0 g/dL 33.0 RDW-CV 11.5 - 15.0 % 14.0 Platelet Count 150 - 400 k/uL 237 MPV 9.0 - 12.7 fL 10.2 Neut% % 51.8 Abs Neut (ANC) 1.45 - 7.50 k/uL 3.60 Lymph% % 33.2 Abs Lymph 1.00 - 4.00 k/uL 2.31 Menard% % 8.9 Abs Menard <0.87 k/uL 0.62 Eosin% % 4.2 Abs Eosin <0.46 k/uL 0.29 Baso% % 1.3 Abs Baso <0.11 k/uL 0.09 Immature Gran % % 0.6 IMMATURE GRANS (ABS) <0.10 k/uL 0.04 NRBC /100 WBC 0.0 Absolute nRBC <0.01 k/uL <0.01 DTYPE Auto Glucose 74 - 99 mg/dL 137 (H) BUN 9 - 24 mg/dL 14 Creatinine 0.73 - 1.22 mg/dL 0.98 Sodium 136 - 144 mmol/L 137 Potassium 3.7 - 5.1 mmol/L 4.3 Chloride 97 - 105 mmol/L 101 CO2 22 - 30 mmol/L 26 Anion Gap 9 - 18 mmol/L 10 Calcium 8.5 - 10.2 mg/dL 9.6 eGFR >=60 mL/min/1.73m 82 Albumin 3.9 - 4.9 g/dL 4.2 Bilirubin, Total 0.2 - 1.3 mg/dL 0.3 Alkaline Phosphatase 38 - 113 U/L 80 AST 14 - 40 U/L 35 ALT 10 - 54 U/L 44 Protein, Total 6.3 - 8.0 g/dL 7.2 ASSESSMENT/PLAN: (C61) Prostate cancer (HCC) (C79.51) Bone metastases (HCC) Assessment: -The patient is a 72-year-old male who was diagnosed with metastatic adenocarcinoma of the prostate after presenting with urinary obstruction. Bone scan suggested multiple skeletal metastases none of which were symptomatic at presentation. -Overall tolerating GnRH and Xtandi, but he decreased Xtandi to 2 tablets a day because of tender breasts and testicular pain. Symptoms far more tolerable at current dose of 2 tablets a day. 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 -Has increasing urinary frequency and dysuria. Discussed ruling out UTI. Plan: -Continue every [address] Jorge's office. -Continue Xtandi--okay 2 tablets a day for now. If PSA significantly trends up, will have to consider increasing dose or changing to another androgen rubén. -Labs every 3 months. -Continue monthly Zometa every 3 months. -PSA every 3 months. -Follow-up with Dr. Jorge for urinary outlet obstructive symptoms. -Follow up with PCP for other health care needs. -UA and culture today. Portions of this documentation were copied and pasted from previous office visit notes in order to provide a cohesive continuity of the history. The note has been reviewed and edited and updated as necessary. I spent a total of 15 minutes on the date of the service which included preparing to see the patient, [id number] patient care, completing clinical documentation, obtaining and/or reviewing separately obtained history, performing a medically appropriate examination, counseling and educating the patient/family/caregiver, communicating with other HCPs (not separately reported), and communicating results to the patient/family/caregiver. Duong Lyn DO documented in this encounter [facility] 10-12-2022 Note Patient Outreach (IN TMM[facility]) JASPREET COSTA ([id number]) 1950 M Date Time Provider Department 10/12/22 MEGAN LOYD During your visit today, we recorded the following information about you: Allergies As of Date: 10/12/2022 Noted Allergy Reaction METFORMIN 04/04/2019 5 - Intolerance Comments: GI upset environmental Other] [Other] 04/26/2006 LIPITOR (ATORVASTATIN CALCIUM) 04/28/2005 14 - Other: See Comments Comments: elevated liver enzyme- muscle ache Date Reviewed: 08/06/2022 Reviewed by: Ivis Gr RN - Fully Assessed Visit Diagnosis:Diabetes mellitus (HCC) [E11.9] Order(s):ALBUMIN/CREAT RATIO RND UR [SQUACR] Order #: [id number] FUTURE Prescriptions as of 10/15/2022 - dapagliflozin (FARXIGA) 10 mg tablet Take 1 tablet by mouth daily with breakfast. - insulin glargine (LANTUS SOLOSTAR U-100 INSULIN) 100 unit/mL (3 mL) Inject 65 Units subcutaneously daily at bedtime. - enzalutamide (XTANDI) 40 mg Take 2 capsules (80mg) by mouth once daily. - ergocalciferol 50,000 unit capsule (VITAMIN D2, DRISDOL) Take 1 capsule by mouth one time a week. - dulaglutide (TRULICITY) 4.5 mg/0.5 mL pen injector Inject 4.5 mg subcutaneously one time a week. - blood sugar diagnostic (Pathable ULTRA TEST) test strip Test blood sugars once daily as needed. Dx: E11.65. Insulin: No - dulaglutide (TRULICITY) 3 mg/0.5 mL pen injector Inject 3 mg subcutaneously one time a week. - fexofenadine HCl (ANDREY ALLERGY ORAL) Take by mouth as needed. - Insulin Davis, Disposable, (BD ULTRA-FINE NEVA PEN NEEDLE) 32 gauge x 5/32 Use one needle for each dose. 1/day. - CPAP Initiate Auto PAP @ 5-20 cm of water with humidification. Mask (per patient preference) optional chin strap (if indicated) , filters, tubing, humidifier and lifetime supplies. - CPAP Initiate Auto PAP @ 5-20 cm of water with humidification. Mask (per patient preference) optional chin strap (if indicated) , filters, tubing, humidifier and lifetime supplies. - psyllium husk, with sugar, (METAMUCIL FREE) 3 gram/7 gram powd Take by mouth. Taking once daily - calcium citrate (CITRACAL ORAL) Take 2 tablets by mouth twice daily. - leuprolide acetate (ELIGARD SUBCUTANEOUS) Inject subcutaneously every 3 months. - Fish Oil-Shirley-3 Fatty Acids 300-1,000 mg cap 1 capsule. Daily - Blood-Glucose Meter monitoring kit Glucose Meter of Choice - Kit - Dx: Type 2 DM - Uncontrolled E11.65. Check blood sugar once daily as needed. - Lancets lancets Test blood sugar oncw daily. Dx: Type 2 DM - Uncontrolled E11.65 Insulin: No - Shirley-3 Fatty Acids 500 mg cap Take 500 mg by mouth three times daily as needed. - Fexofenadine-Pseudoephedrine (ANDREY-D 24 HOUR) 180-240 mg ORAL per 24 hr tablet Take one(1) tablet daily. - BIPAP Use as directed Meds Comments as of 04/04/2019: Citracal 2 pills twice daily. Problem List As Of Date 10/12/2022 Noted Resolved Sleep apnea [G47.30] Mixed hyperlipidemia [E78.2] ALLERGIC RHINITIS NOS [J30.9] DISC DIS NEC/NOS-UNSPEC [M51.9] IRRITABLE COLON [K58.9] ESOPHAGEAL REFLUX [K21.9] 04/29/2005 Impotence of organic origin [N52.9] 04/26/2006 ASTHMA UNSPECIFIED [J45.909] 10/25/2007 Hypersomnia, unspecified [G47.10] 09/16/2010 07/29/2016 Actinic Keratoses: Premalignant AK's [L57.0] 07/18/2011 07/29/2016 Irritated//Inflamed Seborrheic Keratosis [L82.0]07/18/2011 07/29/2016 Viral warts [B07.9] 07/18/2011 07/29/2016 Cutaneous skin tags [L91.8] 07/18/2011 07/29/2016 Other seborrheic keratosis [L82.1] 07/18/2011 07/29/2016 Actinic skin damage [L57.8] 07/18/2011 07/29/2016 Solar lentigines [L81.4] 07/18/2011 07/29/2016 Melanocytic nevus of trunk [D22.5] 07/18/2011 07/29/2016 Morbid obesity [E66.01] 10/01/2013 Diabetes mellitus (HCC) [E11.9] 07/03/2015 Prostate cancer (HCC) [C61] 03/13/2019 Malignant neoplasm metastatic to bone (HCC) [C7*03/13/2019 Encounter Status:Closed by KEVYN CRAFT on 10/15/22 [facility] 10-01-2022 Note HNO ID: [id number] Author: Jacquelin López RPh Service: ? Author Type: Pharmacist Type: Progress Notes Filed: 10/12/2022 9:53 AM Note Text: Primary Care Pharmacy Visit CC (Reason for Consult): DM Goal: A1c<8% Last Collaborating Physician Visit: 07/31/2019 Jaspreet Costa is a 72 year old male presenting for follow up visit by telephone. Patient consents to pharmacy collaborative practice agreement. At last visit with pharmacy on 08/27/22 the following changes were made: Farxiga dose was increased. INTERIM HISTORY: Patient notes readings improving Typical fasting readings 140-180 No longer having readings in the 200s Has been taking two tablets of Farxiga 5 mg, for total daily dose of 10 mg Requests refill for Farxiga Current DM Medications: Trulicity 4.5 mg weekly Lantus 65 units daily at bedtime Farxiga 5 mg once daily - Taking differently: 10 mg once daily Past DM medications: Victoza Glipizide Metformin ER -d/c chart notes GI upset Glimepiride ROS: Patient denies CP, SOB, CAPUTO, blurred vision, dizziness or lightheadedness Patient denies nausea, vomiting, diarrhea, abdominal pain Patient denies symptoms of hypoglycemia (sweating, anxiety, palpitations, hunger, and tremor) Patient denies symptoms of hyperglycemia (polyuria, polydipsia, polyphagia) Patient denies potential medication adverse effects MEDICATIONS: Pill bottles are not present. Adherence: denies missed doses. Pharmacy: [facility] ACTIVE PROBLEM LIST Sleep Apnea Mixed Hyperlipidemia Allergic Rhinitis, Cause Unspecified Other and Unspecified Disc Disorder of Unspecified Region Irritable Bowel Syndrome Esophageal Reflux Impotence of Organic Origin Unspecified Asthma(493.90) Morbid Obesity (Hcc) Diabetes Mellitus (Hcc) Prostate Cancer (Hcc) Bone Metastases (Hcc) PAST MEDICAL HISTORY Diagnosis Date Allergic rhinitis, cause unspecified Cancer (HCC) Diabetes mellitus (HCC) 07/03/2015 Irritable bowel syndrome Obstructive sleep apnea Other and unspecified disc disorder of unspecified region Intervertebral disc disorders Other and unspecified hyperlipidemia Unspecified sleep apnea ALLERGIES Allergen Reactions Metformin Intolerance GI upset Environmental Other* Lipitor [Atorvastat* Other: See Comments elevated liver enzyme- muscle ache Current Outpatient Medications Medication Sig insulin glargine (LANTUS SOLOSTAR U-100 INSULIN) 100 unit/mL (3 mL) Inject 65 Units subcutaneously daily at bedtime. enzalutamide (XTANDI) 40 mg Take 2 capsules (80mg) by mouth once daily. dapagliflozin (FARXIGA) 5 mg tablet Take 1 tablet by mouth daily with breakfast. ergocalciferol 50,000 unit capsule (VITAMIN D2, DRISDOL) Take 1 capsule by mouth one time a week. dulaglutide (TRULICITY) 4.5 mg/0.5 mL pen injector Inject 4.5 mg subcutaneously one time a week. blood sugar diagnostic (ONETOUCH ULTRA TEST) test strip Test blood sugars once daily as needed. Dx: E11.65. Insulin: No dulaglutide (TRULICITY) 3 mg/0.5 mL pen injector Inject 3 mg subcutaneously one time a week. fexofenadine HCl (ANDREY ALLERGY ORAL) Take by mouth as needed. Insulin Davis, Disposable, (BD ULTRA-FINE NEVA PEN NEEDLE) 32 gauge x Use one needle for each dose. 1/day. CPAP Initiate Auto PAP @ 5-20 cm of water with humidification. Mask (per patient preference) optional chin strap (if indicated) , filters, tubing, humidifier and lifetime supplies. CPAP Initiate Auto PAP @ 5-20 cm of water with humidification. Mask (per patient preference) optional chin strap (if indicated) , filters, tubing, humidifier and lifetime supplies. psyllium husk, with sugar, (METAMUCIL FREE) 3 gram/7 gram powd Take by mouth. Taking once daily calcium citrate (CITRACAL ORAL) Take 2 tablets by mouth twice daily. leuprolide acetate (ELIGARD SUBCUTANEOUS) Inject subcutaneously every 3 months. Fish Oil-Shirley-3 Fatty Acids 300-1,000 mg cap 1 capsule. Daily Blood-Glucose Meter monitoring kit Glucose Meter of Choice - Kit - Dx: Type 2 DM - Uncontrolled E11.65. Check blood sugar once daily as needed. Lancets lancets Test blood sugar oncw daily. Dx: Type 2 DM - Uncontrolled E11.65 Insulin: No Shirley-3 Fatty Acids 500 mg cap Take 500 mg by mouth three times daily as needed. Fexofenadine-Pseudoephedrine (ANDREY-D 24 HOUR) 180-240 mg ORAL per 24 hr tablet Take one(1) tablet daily. (Patient not taking: Reported on 11/27/2021) BIPAP Use as directed No current facility-administered medications for this visit. EXAM: Last 3 Encounter BP Readings: Date: BP: 08/06/2022 135/74 05/14/2022 142/72 05/10/2022 137/74 Wt: 321 lb (145.6 kg) BMI: 40.55 kg/(m2) LABS: Lab Results Component Value Date HBA1C 8.5 08/05/2022 HBA1C 8.5 02/19/2022 HBA1C 8.3 11/27/2021 HBA1C 9.8 06/10/2021 HBA1C 11.4 03/20/2021 HBA1C 10.1 09/04/2020 CMP: Glucose 152 08/05/2022 BUN 14 08/05/2022 Creatinine 0.84 08/05/2022 Sodium 136 2/ (more content not included)... [facility] 10-01-2022 History of Present illness Narrative Primary Care Pharmacy Visit CC (Reason for Consult): DM Goal: A1c<8% Last Collaborating Physician Visit: 07/31/2019 Jaspreet Costa is a 72 year old male presenting for follow up visit by telephone. Patient consents to pharmacy collaborative practice agreement. At last visit with pharmacy on 08/27/22 the following changes were made: Farxiga dose was increased. INTERIM HISTORY: Patient notes readings improving Typical fasting readings 140-180 No longer having readings in the 200s Has been taking two tablets of Farxiga 5 mg, for total daily dose of 10 mg Requests refill for Farxiga Current DM Medications: Trulicity 4.5 mg weekly Lantus 65 units daily at bedtime Farxiga 5 mg once daily - Taking differently: 10 mg once daily Past DM medications: Victoza Glipizide Metformin ER -d/c chart notes GI upset Glimepiride ROS: Patient denies CP, SOB, CAPUTO, blurred vision, dizziness or lightheadedness Patient denies nausea, vomiting, diarrhea, abdominal pain Patient denies symptoms of hypoglycemia (sweating, anxiety, palpitations, hunger, and tremor) Patient denies symptoms of hyperglycemia (polyuria, polydipsia, polyphagia) Patient denies potential medication adverse effects MEDICATIONS: Pill bottles are not present. Adherence: denies missed doses. Pharmacy: [facility] ACTIVE PROBLEM LIST Sleep Apnea Mixed Hyperlipidemia Allergic Rhinitis, Cause Unspecified Other and Unspecified Disc Disorder of Unspecified Region Irritable Bowel Syndrome Esophageal Reflux Impotence of Organic Origin Unspecified Asthma(493.90) Morbid Obesity (Hcc) Diabetes Mellitus (Hcc) Prostate Cancer (Hcc) Bone Metastases (Hcc) PAST MEDICAL HISTORY Diagnosis Date Allergic rhinitis, cause unspecified Cancer (HCC) Diabetes mellitus (HCC) 07/03/2015 Irritable bowel syndrome Obstructive sleep apnea Other and unspecified disc disorder of unspecified region Intervertebral disc disorders Other and unspecified hyperlipidemia Unspecified sleep apnea ALLERGIES Allergen Reactions Metformin Intolerance GI upset Environmental Other* Lipitor [Atorvastat* Other: See Comments elevated liver enzyme- muscle ache Current Outpatient Medications Medication Sig insulin glargine (LANTUS SOLOSTAR U-100 INSULIN) 100 unit/mL (3 mL) Inject 65 Units subcutaneously daily at bedtime. enzalutamide (XTANDI) 40 mg Take 2 capsules (80mg) by mouth once daily. dapagliflozin (FARXIGA) 5 mg tablet Take 1 tablet by mouth daily with breakfast. ergocalciferol 50,000 unit capsule (VITAMIN D2, DRISDOL) Take 1 capsule by mouth one time a week. dulaglutide (TRULICITY) 4.5 mg/0.5 mL pen injector Inject 4.5 mg subcutaneously one time a week. blood sugar diagnostic (Pathable ULTRA TEST) test strip Test blood sugars once daily as needed. Dx: E11.65. Insulin: No dulaglutide (TRULICITY) 3 mg/0.5 mL pen injector Inject 3 mg subcutaneously one time a week. fexofenadine HCl (ANDREY ALLERGY ORAL) Take by mouth as needed. Insulin Davis, Disposable, (BD ULTRA-FINE NEVA PEN NEEDLE) 32 gauge x Use one needle for each dose. 1/day. CPAP Initiate Auto PAP @ 5-20 cm of water with humidification. Mask (per patient preference) optional chin strap (if indicated) , filters, tubing, humidifier and lifetime supplies. CPAP Initiate Auto PAP @ 5-20 cm of water with humidification. Mask (per patient preference) optional chin strap (if indicated) , filters, tubing, humidifier and lifetime supplies. psyllium husk, with sugar, (METAMUCIL FREE) 3 gram/7 gram powd Take by mouth. Taking once daily calcium citrate (CITRACAL ORAL) Take 2 tablets by mouth twice daily. leuprolide acetate (ELIGARD SUBCUTANEOUS) Inject subcutaneously every 3 months. Fish Oil-Shirley-3 Fatty Acids 300-1,000 mg cap 1 capsule. Daily Blood-Glucose Meter monitoring kit Glucose Meter of Choice - Kit - Dx: Type 2 DM - Uncontrolled E11.65. Check blood sugar once daily as needed. Lancets lancets Test blood sugar oncw daily. Dx: Type 2 DM - Uncontrolled E11.65 Insulin: No Shirley-3 Fatty Acids 500 mg cap Take 500 mg by mouth three times daily as needed. Fexofenadine-Pseudoephedrine (ANDREY-D 24 HOUR) 180-240 mg ORAL per 24 hr tablet Take one(1) tablet daily. (Patient not taking: Reported on 11/27/2021) BIPAP Use as directed No current facility-administered medications for this visit. EXAM: Last 3 Encounter BP Readings: Date: BP: 08/06/2022 135/74 05/14/2022 142/72 05/10/2022 137/74 Wt: 321 lb (145.6 kg) BMI: 40.55 kg/(m^2) LABS: Lab Results Component Value Date HBA1C 8.5 08/05/2022 HBA1C 8.5 02/19/2022 HBA1C 8.3 11/27/2021 HBA1C 9.8 06/10/2021 HBA1C 11.4 03/20/2021 HBA1C 10.1 09/04/2020 CMP: Glucose 152 08/05/2022 BUN 14 08/05/2022 Creatinine 0.84 08/05/2022 Sodium 136 08/05/2022 Potassium 4.5 08/05/2022 Chloride 102 08/05/2022 CO2 25 08/05/2022 Protein, Total 7.1 08/05/2022 Albumin 4.0 08/05/2022 Calcium 9.3 08/05/2022 Alkaline Phosphatase 77 08/05/2022 Bilirubin, Total 0.4 08/05/2022 AST 34 08/05/2022 ALT 48 08/05/2022 Creatinine clearance cannot be calculated (Unknown ideal weight.) No results found for: GFR eGFR- (no units) Date Value 06/10/2021 >60 EGFR: >60 mL/min/1.73m2 Lab Results Component Value Date CHOL 228 06/10/2021 LDL 131 06/10/2021 HDL 58 06/10/2021 TG 195 06/10/2021 The 10-year ASCVD risk score (Aleksey YU, et al., 2019) is: 36.5% Values used to calculate the score: Age: 72 years Sex: Male Is Non- : No Diabetic: Yes Tobacco smoker: No Systolic Blood Pressure: 135 mmHg Is BP treated: No HDL Cholesterol: 58 mg/dL Total Cholesterol: 228 mg/dL Albumin/Creat Ratio (mg/g) Date Value 09/03/2021 <16 PHARMACOTHERAPY ASSESSMENT/PLAN: 1. 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 Will continue same regimen. Renal function appropriate for continued use Continue Farxiga 10 mg once daily Continue Insulin glargine 65 units daily at bedtime Continue Trulicity 4.5 mg weekly Follow up: Patient is not scheduled to see PCP team. Overdue for PCP follow up, reminded patient to schedule follow up. Patient to follow up with pharmD on 11/12/22 Patient verbalized understanding of instructions. Jacquelin López PharmD, BCACP Primary Care Clinical Pharmacist The majority of the pharmacy visit (> 50%) was spent counseling and/or coordinating care for the patient. [Telephonic] time was 20 minutes. documented in this encounter [facility] 09-27-2022 Miscellaneous Notes Pt has not been seen by this Office since 07/05/2019, however he continues to follow with Pharm routinely. Last VV 08/27/22. Advise. Sue Sparks Ma documented in this encounter [facility] 09-27-2022 Note HNO ID: [id number] Author: Prema Flor (Life Care [employer]anner) Service: ? Author Type: ? Type: Progress Notes Filed: 10/01/2022 8:23 AM Note Text: [facility] Refill Assessment Medication(s): Xtandi No new clinical information to review since last SPP refill encounter. Next OV scheduled 10/29/22 with labs. ALLERGIES Allergen Reactions Metformin Intolerance GI upset Environmental Other* Lipitor [Atorvastat* Other: See Comments elevated liver enzyme- muscle ache Patient's current medication list and adherence status to current therapy were reviewed by Specialty Pharmacy clinical pharmacist to identify any new drug interactions or non-compliance to therapy. Therapy continues to be appropriate for disease, patient response, and medical condition. Verification of therapeutic benefit and effectiveness with current therapy was completed. Adverse events, barriers in adherence, and side effects were assessed and addressed if applicable. Will proceed with refill with no changes in therapy - patient progressing towards achieving therapeutic goals based on medication-specific laboratory parameters, disease state markers and outcomes. Amy Pichardo, PharmD Clinical Pharmacist, Oncology [facility] P: , F: Pool: P [facility] Pool #: [id number] Kinesiology Internship Assessment Patient confirmed: Yes Med/dose confirmed: Yes Supplies needed: No supplies needed Missed doses: No Estimated days supply on hand: 10 Copay amount: 11.14 Copay form of payment: Credit card on file Payment confirmed: Yes Delivery method: FedEx Signature required: No Delivery address: [address] [place] [address] *Put in [facility] [place] [place] [id number] Delivery date: 10/05/22 Questions or concerns for the pharmacist?: No [facility] Visit Assessment - Hematology/Oncology: Ivent complete: No Assessment to use: Refill Vaccination Assessment: Date of influenza vaccination reminder: 03/26/2022 Date of most recent vaccination assessment: 03/26/2022 Refill Assessment: Lab monitoring inclusive of CBC, Chem-7, and other labs as pertinent for therapy: Yes Chemo cycle timing assessment: N/A Screening for infection: Yes Adverse reactions and mitigation: Yes Medication changes and interaction assessment: Yes Assessment of injection issues: N/A Additional Assessment: Assessment of continued need for prophylactic medications at regular intervals: Yes Radiology procedure timing to assess for disease progression: Yes Scheduled future appointments: Yes Prema Flor CPhT [facility], Oncology P: / F: [facility] 08-30-2022 Note HNO ID: [id number] Author: Tessa Mtz (Life Care [employer]anner) Service: ? Author Type: ? Type: Progress Notes Filed: 09/01/2022 1:42 PM Note Text: [facility] Refill Assessment Medication(s): Xtandi No new clinic notes to review since last SPP refill encounter. Labs from 08/05/22 reviewed - all WNL, PSA remains at 0.07. Next OV scheduled 10/29/22 with labs. ALLERGIES Allergen Reactions Metformin Intolerance GI upset Environmental Other* Lipitor [Atorvastat* Other: See Comments elevated liver enzyme- muscle ache Patient's current medication list and adherence status to current therapy were reviewed by Specialty Pharmacy clinical pharmacist to identify any new drug interactions or non-compliance to therapy. Therapy continues to be appropriate for disease, patient response, and medical condition. Verification of therapeutic benefit and effectiveness with current therapy was completed. Adverse events, barriers in adherence, and side effects were assessed and addressed if applicable. Will proceed with refill with no changes in therapy - patient progressing towards achieving therapeutic goals based on medication-specific laboratory parameters, disease state markers and outcomes. Amy Pichardo, PharmD Clinical Pharmacist, Oncology [facility] P: , F: Pool: P [facility] Pool #: [id number] Kinesiology Internship Assessment Patient confirmed: Yes Med/dose confirmed: Yes Supplies needed: No supplies needed Missed doses: No Estimated days supply on hand: 8 Copay amount: 435.6 Copay form of payment: Credit card on file Payment confirmed: Yes Delivery method: FedEx Signature required: No Delivery address: [address] [place] [address] (put in UPS box) Delivery date: 09/03/22 Questions or concerns for the pharmacist?: No [facility] Visit Assessment - Hematology/Oncology: Ivent complete: No Assessment to use: Refill Vaccination Assessment: Date of influenza vaccination reminder: 03/26/2022 Date of most recent vaccination assessment: 03/26/2022 Refill Assessment: Lab monitoring inclusive of CBC, Chem-7, and other labs as pertinent for therapy: Yes Chemo cycle timing assessment: N/A Screening for infection: Yes Adverse reactions and mitigation: Yes Medication changes and interaction assessment: Yes Assessment of injection issues: N/A Additional Assessment: Assessment of continued need for prophylactic medications at regular intervals: Yes Radiology procedure timing to assess for disease progression: Yes Scheduled future appointments: Yes Tessa Mtz ([employer]) [facility] 08-30-2022 History of Present illness Narrative [facility] Assessment Medication(s): Xtandi Patient's current medication list and adherence status to current therapy were reviewed by Specialty Pharmacy clinical pharmacist to identify any new drug interactions or non-compliance to therapy. Therapy continues to be appropriate for disease, patient response, and medical condition. Verification of therapeutic benefit and effectiveness with current therapy was completed. Adverse events, barriers in adherence, and side effects were assessed and addressed if applicable. Will proceed with refill with no changes in therapy - patient progressing towards achieving therapeutic goals based on medication-specific laboratory parameters, disease state markers and outcomes. Kinesiology Internship Assessment Patient confirmed: Yes Med/dose confirmed: Yes Supplies needed: No supplies needed Missed doses: No Estimated days supply on hand: 8 Copay amount: 435.6 Copay form of payment: Credit card on file Payment confirmed: Yes Delivery method: FedEx Signature required: No Delivery address: [address] [place] [id number] (put in UPS box) Delivery date: 09/03/22 Questions or concerns for the pharmacist?: No [facility] Visit Assessment - Hematology/Oncology: Assessment to use: Refill Vaccination Assessment: Date of influenza vaccination reminder: 03/26/2022 Date of most recent vaccination assessment: 03/26/2022 Tessa Mtz ([employer]) documented in this encounter [facility] 08-27-2022 Note HNO ID: [id number] Author: Jacquelin López RPh Service: ? Author Type: Pharmacist Type: Progress Notes Filed: 09/01/2022 11:11 PM Note Text: Primary Care Pharmacy Visit CC (Reason for Consult): DM Goal: A1c<8% Last Collaborating Physician Visit: 07/31/2019 Jaspreet Costa is a 72 year old male presenting for follow up visit by telephone. Patient consents to pharmacy collaborative practice agreement. At last visit with pharmacy on 07/28/22 the following changes were made: none. INTERIM HISTORY: Continues same regimen with no missed doses Feels BG stable and unchanged Endorses BG readings at fasting range 150-180s No other concerns today Current DM Medications: Trulicity 4.5 mg weekly Lantus 65 units daily at bedtime Farxiga 5 mg once daily Past DM medications: Victoza Glipizide Metformin ER -d/c chart notes GI upset Glimepiride ROS: Patient denies CP, SOB, CAPUTO, blurred vision, dizziness or lightheadedness Patient denies nausea, vomiting, diarrhea, abdominal pain Patient denies symptoms of hypoglycemia (sweating, anxiety, palpitations, hunger, and tremor) Patient denies symptoms of hyperglycemia (polyuria, polydipsia, polyphagia) Patient denies potential medication adverse effects MEDICATIONS: Pill bottles are not present. Adherence: denies missed doses. Pharmacy: [facility] ACTIVE PROBLEM LIST Sleep Apnea Mixed Hyperlipidemia Allergic Rhinitis, Cause Unspecified Other and Unspecified Disc Disorder of Unspecified Region Irritable Bowel Syndrome Esophageal Reflux Impotence of Organic Origin Unspecified Asthma(493.90) Morbid Obesity (Hcc) Diabetes Mellitus (Hcc) Prostate Cancer (Hcc) Bone Metastases (Hcc) PAST MEDICAL HISTORY Diagnosis Date Allergic rhinitis, cause unspecified Cancer (HCC) Diabetes mellitus (HCC) 07/03/2015 Irritable bowel syndrome Obstructive sleep apnea Other and unspecified disc disorder of unspecified region Intervertebral disc disorders Other and unspecified hyperlipidemia Unspecified sleep apnea ALLERGIES Allergen Reactions Metformin Intolerance GI upset Environmental Other* Lipitor [Atorvastat* Other: See Comments elevated liver enzyme- muscle ache Current Outpatient Medications Medication Sig enzalutamide (XTANDI) 40 mg Take 2 capsules (80mg) by mouth once daily. dapagliflozin (FARXIGA) 5 mg tablet Take 1 tablet by mouth daily with breakfast. ergocalciferol 50,000 unit capsule (VITAMIN D2, DRISDOL) Take 1 capsule by mouth one time a week. dulaglutide (TRULICITY) 4.5 mg/0.5 mL pen injector Inject 4.5 mg subcutaneously one time a week. blood sugar diagnostic (Pathable ULTRA TEST) test strip Test blood sugars once daily as needed. Dx: E11.65. Insulin: No dulaglutide (TRULICITY) 3 mg/0.5 mL pen injector Inject 3 mg subcutaneously one time a week. fexofenadine HCl (ANDREY ALLERGY ORAL) Take by mouth as needed. insulin glargine (LANTUS SOLOSTAR U-100 INSULIN) 100 unit/mL (3 mL) Inject 65 Units subcutaneously daily at bedtime. Insulin Davis, Disposable, (BD ULTRA-FINE NEVA PEN NEEDLE) 32 gauge x Use one needle for each dose. 1/day. CPAP Initiate Auto PAP @ 5-20 cm of water with humidification. Mask (per patient preference) optional chin strap (if indicated) , filters, tubing, humidifier and lifetime supplies. CPAP Initiate Auto PAP @ 5-20 cm of water with humidification. Mask (per patient preference) optional chin strap (if indicated) , filters, tubing, humidifier and lifetime supplies. psyllium husk, with sugar, (METAMUCIL FREE) 3 gram/7 gram powd Take by mouth. Taking once daily calcium citrate (CITRACAL ORAL) Take 2 tablets by mouth twice daily. leuprolide acetate (ELIGARD SUBCUTANEOUS) Inject subcutaneously every 3 months. Fish Oil-Shirley-3 Fatty Acids 300-1,000 mg cap 1 capsule. Daily Blood-Glucose Meter monitoring kit Glucose Meter of Choice - Kit - Dx: Type 2 DM - Uncontrolled E11.65. Check blood sugar once daily as needed. Lancets lancets Test blood sugar oncw daily. Dx: Type 2 DM - Uncontrolled E11.65 Insulin: No Shirley-3 Fatty Acids 500 mg cap Take 500 mg by mouth three times daily as needed. Fexofenadine-Pseudoephedrine (ANDREY-D 24 HOUR) 180-240 mg ORAL per 24 hr tablet Take one(1) tablet daily. (Patient not taking: Reported on 11/27/2021) BIPAP Use as directed No current facility-administered medications for this visit. EXAM: Last 3 Encounter BP Readings: Date: BP: 08/06/2022 135/74 05/14/2022 142/72 05/10/2022 137/74 Wt: 145.6 kg (321 lb) BMI: 40.55 kg/(m2) LABS: Lab Results Component Value Date HBA1C 8.5 08/05/2022 HBA1C 8.5 02/19/2022 HBA1C 8.3 11/27/2021 HBA1C 9.8 06/10/2021 HBA1C 11.4 03/20/2021 HBA1C 10.1 09/04/2020 CMP: Glucose 152 08/05/2022 BUN 14 08/05/2022 Creatinine 0.84 08/05/2022 Sodium 136 08/05/2022 Potassium 4.5 08/05/2022 Chloride 102 08/05/2022 CO2 25 08/05/2022 Protein, Total 7.1 08/05/2022 Albumin 4.0 08/05/2022 (more content not included)... [facility] 08-27-2022 History of Present illness Narrative Primary Care Pharmacy Visit CC (Reason for Consult): DM Goal: A1c<8% Last Collaborating Physician Visit: 07/31/2019 Jaspreet Costa is a 72 year old male presenting for follow up visit by telephone. Patient consents to pharmacy collaborative practice agreement. At last visit with pharmacy on 07/28/22 the following changes were made: none. INTERIM HISTORY: Continues same regimen with no missed doses Feels BG stable and unchanged Endorses BG readings at fasting range 150-180s No other concerns today Current DM Medications: Trulicity 4.5 mg weekly Lantus 65 units daily at bedtime Farxiga 5 mg once daily Past DM medications: Victoza Glipizide Metformin ER -d/c chart notes GI upset Glimepiride ROS: Patient denies CP, SOB, CAPUTO, blurred vision, dizziness or lightheadedness Patient denies nausea, vomiting, diarrhea, abdominal pain Patient denies symptoms of hypoglycemia (sweating, anxiety, palpitations, hunger, and tremor) Patient denies symptoms of hyperglycemia (polyuria, polydipsia, polyphagia) Patient denies potential medication adverse effects MEDICATIONS: Pill bottles are not present. Adherence: denies missed doses. Pharmacy: [facility] ACTIVE PROBLEM LIST Sleep Apnea Mixed Hyperlipidemia Allergic Rhinitis, Cause Unspecified Other and Unspecified Disc Disorder of Unspecified Region Irritable Bowel Syndrome Esophageal Reflux Impotence of Organic Origin Unspecified Asthma(493.90) Morbid Obesity (Hcc) Diabetes Mellitus (Hcc) Prostate Cancer (Hcc) Bone Metastases (Hcc) PAST MEDICAL HISTORY Diagnosis Date Allergic rhinitis, cause unspecified Cancer (HCC) Diabetes mellitus (HCC) 07/03/2015 Irritable bowel syndrome Obstructive sleep apnea Other and unspecified disc disorder of unspecified region Intervertebral disc disorders Other and unspecified hyperlipidemia Unspecified sleep apnea ALLERGIES Allergen Reactions Metformin Intolerance GI upset Environmental Other* Lipitor [Atorvastat* Other: See Comments elevated liver enzyme- muscle ache Current Outpatient Medications Medication Sig enzalutamide (XTANDI) 40 mg Take 2 capsules (80mg) by mouth once daily. dapagliflozin (FARXIGA) 5 mg tablet Take 1 tablet by mouth daily with breakfast. ergocalciferol 50,000 unit capsule (VITAMIN D2, DRISDOL) Take 1 capsule by mouth one time a week. dulaglutide (TRULICITY) 4.5 mg/0.5 mL pen injector Inject 4.5 mg subcutaneously one time a week. blood sugar diagnostic (MDdatacorTOUCH ULTRA TEST) test strip Test blood sugars once daily as needed. Dx: E11.65. Insulin: No dulaglutide (TRULICITY) 3 mg/0.5 mL pen injector Inject 3 mg subcutaneously one time a week. fexofenadine HCl (ANDREY ALLERGY ORAL) Take by mouth as needed. insulin glargine (LANTUS SOLOSTAR U-100 INSULIN) 100 unit/mL (3 mL) Inject 65 Units subcutaneously daily at bedtime. Insulin Davis, Disposable, (BD ULTRA-FINE NEVA PEN NEEDLE) 32 gauge x Use one needle for each dose. 1/day. CPAP Initiate Auto PAP @ 5-20 cm of water with humidification. Mask (per patient preference) optional chin strap (if indicated) , filters, tubing, humidifier and lifetime supplies. CPAP Initiate Auto PAP @ 5-20 cm of water with humidification. Mask (per patient preference) optional chin strap (if indicated) , filters, tubing, humidifier and lifetime supplies. psyllium husk, with sugar, (METAMUCIL FREE) 3 gram/7 gram powd Take by mouth. Taking once daily calcium citrate (CITRACAL ORAL) Take 2 tablets by mouth twice daily. leuprolide acetate (ELIGARD SUBCUTANEOUS) Inject subcutaneously every 3 months. Fish Oil-Shirley-3 Fatty Acids 300-1,000 mg cap 1 capsule. Daily Blood-Glucose Meter monitoring kit Glucose Meter of Choice - Kit - Dx: Type 2 DM - Uncontrolled . Check blood sugar once daily as needed. Lancets lancets Test blood sugar oncw daily. Dx: Type 2 DM - Uncontrolled Insulin: No Shirley-3 Fatty Acids 500 mg cap Take 500 mg by mouth three times daily as needed. Fexofenadine-Pseudoephedrine (ANDREY-D 24 HOUR) 180-240 mg ORAL per 24 hr tablet Take one(1) tablet daily. (Patient not taking: Reported on 11/27/2021) BIPAP Use as directed No current facility-administered medications for this visit. EXAM: Last 3 Encounter BP Readings: Date: BP: 08/06/2022 135/74 05/14/2022 142/72 05/10/2022 137/74 Wt: 145.6 kg (321 lb) BMI: 40.55 kg/(m^2) LABS: Lab Results Component Value Date HBA1C 8.5 08/05/2022 HBA1C 8.5 02/19/2022 HBA1C 8.3 11/27/2021 HBA1C 9.8 06/10/2021 HBA1C 11.4 03/20/2021 HBA1C 10.1 09/04/2020 CMP: Glucose 152 08/05/2022 BUN 14 08/05/2022 Creatinine 0.84 08/05/2022 Sodium 136 08/05/2022 Potassium 4.5 08/05/2022 Chloride 102 08/05/2022 CO2 25 08/05/2022 Protein, Total 7.1 08/05/2022 Albumin 4.0 08/05/2022 Calcium 9.3 08/05/2022 Alkaline Phosphatase 77 08/05/2022 Bilirubin, Total 0.4 08/05/2022 AST 34 08/05/2022 ALT 48 08/05/2022 Creatinine clearance cannot be calculated (Unknown ideal weight.) No results found for: GFR eGFR- (no units) Date Value 06/10/2021 >60 EGFR: >60 mL/min/1.73m2 Lab Results Component Value Date CHOL 228 06/10/2021 LDL 131 06/10/2021 HDL 58 06/10/2021 TG 195 06/10/2021 The 10-year ASCVD risk score (Aleksey YU, et al., 2019) is: 36.5% Values used to calculate the score: Age: 72 years Sex: Male Is Non- : No Diabetic: Yes Tobacco smoker: No Systolic Blood Pressure: 135 mmHg Is BP treated: No HDL Cholesterol: 58 mg/dL Total Cholesterol: 228 mg/dL Albumin/Creat Ratio (mg/g) Date Value 09/03/2021 <16 PHARMACOTHERAPY ASSESSMENT/PLAN: 1. Type 2 diabetes mellitus without complication, unspecified whether correction insulin use (HCC) - ICD9: 250.00, ICD10: E11.9 A1c goal < 8%; not at goal (last A1c 8.5%); SMBG remain elevated since addition of Farxiga. Will optimize Farxiga dose, patient has 90 day supply of 5 mg tabs, will start taking 2 tabs daily for 10 mg total daily dose Increase to Farxiga 10 mg - 2 tabs daily of current supply Continue Insulin glargine 65 units daily at bedtime Continue Trulicity 4.5 mg weekly Follow up: Patient is not scheduled to see PCP team. Overdue for PCP follow up, reminded patient to schedule follow up. Patient to follow up with pharmD on 10/01/22. Patient verbalized understanding of instructions. Jacquelin López PharmD, RAMANCP Primary Care Clinical Pharmacist The majority of the pharmacy visit (> 50%) was spent counseling and/or coordinating care for the patient. [Telephonic] time was 15 minutes. documented in this encounter [facility] 08-09-2022 Miscellaneous Notes A1c stable but remains elevated. Patient was started on Farxiga 5 mg on 06/25/22 and readings have been trending down over the past month. Fasting BG on BMP was 152 mg/dL, down from 200s, showing improvement. Will continue same regimen and will discuss potential Farxiga dose increase with patient at upcoming phone call on 08/27/22. Jacquelin López PharmD, JOE Primary Care Clinical Pharmacist documented in this encounter [facility] 08-06-2022 Note HNO ID: [id number] Author: Ivis Gr RN Service: ? Author Type: Registered Nurse Type: Progress Notes Filed: 08/06/2022 3:39 PM Note Text: Four unsuccessful attempts for IV access. Patient refused any further attempts therefore unable to receive zometa today. [facility] 07-28-2022 Miscellaneous Notes Order has been signed, thank you. Prema Mehta APRN.[employer] Patient will be completing labs for Dr. Lyn on 08/06, asking if Dr. Loyd would recheck A1c with this planned blood draw as well. Pending order for PCP. Jacquelin López PharmD, BCACP Primary Care Clinical Pharmacist documented in this encounter [facility] 07-28-2022 Note HNO ID: [id number] Author: Shelli Duvall Service: ? Author Type: ? Type: Progress Notes Filed: 08/02/2022 2:37 PM Note Text: [facility] Specialty Refill Assessment Medication(s): Xtandi No new clinical information to review since last SPP refill encounter. Continues on attenuated dose of 80mg once daily for now (noted plan to increase potentially if PSA significantly rises). Next OV scheduled 08/06 (injection/labs). No note of when next OV to be scheduled, but PSA planned to be obtained every 3 months. Patient previously paid [employer] retiree copays until reaching deductible. Noted Farxiga started for DM; no sig Dis noted. ALLERGIES Allergen Reactions Metformin Intolerance GI upset Environmental Other* Lipitor [Atorvastat* Other: See Comments elevated liver enzyme- muscle ache Nunu Hays, LeeannaD, BCPS, BCOP Clinical Coordinator, Specialty Pharmacy [facility] P: , F: Pool: P [facility] Pool #: [id number] Patient's current medication list and adherence status to current therapy were reviewed by Specialty Pharmacy clinical pharmacist to identify any new drug interactions or non-compliance to therapy. Therapy continues to be appropriate for disease, patient response, and medical condition. Verification of therapeutic benefit and effectiveness with current therapy was completed. Adverse events, barriers in adherence, and side effects were assessed and addressed if applicable. Will proceed with refill with no changes in therapy - patient progressing towards achieving therapeutic goals based on medication-specific laboratory parameters, disease state markers and outcomes. Kinesiology Internship Assessment Patient confirmed: Yes Med/dose confirmed: Yes Supplies needed: No supplies needed Missed doses: No Estimated days supply on hand: 8 Copay amount: 710.6 Copay form of payment: Credit card on file Payment confirmed: Yes Delivery method: FedEx Signature required: No Delivery address: [place] [address] Delivery date: 08/04/22 Questions or concerns for the pharmacist?: No [facility] Pharm[facility] Visit Assessment - Hematology/Oncology: Assessment to use: Refill Vaccination Assessment: Date of influenza vaccination reminder: 03/26/2022 Date of most recent vaccination assessment: 03/26/2022 Refill Assessment: Lab monitoring inclusive of CBC, Chem-7, and other labs as pertinent for therapy: Yes Chemo cycle timing assessment: N/A Screening for infection: Yes Adverse reactions and mitigation: Yes Medication changes and interaction assessment: Yes Assessment of injection issues: N/A Additional Assessment: Assessment of continued need for prophylactic medications at regular intervals: Yes Radiology procedure timing to assess for disease progression: Yes Scheduled future appointments: Yes Shelli Duvall [facility] 07-28-2022 Note HNO ID: [id number] Author: Jacquelin López RPh Service: ? Author Type: Pharmacist Type: Progress Notes Filed: 07/28/2022 2:15 PM Note Text: Primary Care Pharmacy Visit CC (Reason for Consult): DM Goal: A1c<8% Last Collaborating Physician Visit: 07/31/2019 Jaspreet Costa is a 72 year old male presenting for follow up visit by telephone. Patient consents to pharmacy collaborative practice agreement. At last visit with pharmacy on 06/25/22 the following changes were made: Farxiga was started. INTERIM HISTORY: Has started Farxiga daily, reports fasting readings improved Before Farxiga, fasting readings were in the 190s range and now most readings in the 160s range Does not occasional fatigue midday since being on Farxiga, denies any s/sx of hypoglycemia or readings <70 mg/dL Recently saw eye doctor and was told all is well with vision Current DM Medications: Trulicity 4.5 mg weekly Lantus 65 units daily at bedtime Farxiga 5 mg once daily Past DM medications: Victoza Glipizide Metformin ER -d/c chart notes GI upset Glimepiride ROS: Patient denies CP, SOB, CAPUTO, blurred vision, dizziness or lightheadedness Patient denies nausea, vomiting, diarrhea, abdominal pain Patient denies symptoms of hypoglycemia (sweating, anxiety, palpitations, hunger, and tremor) Patient denies symptoms of hyperglycemia (polyuria, polydipsia, polyphagia) Patient denies potential medication adverse effects MEDICATIONS: Pill bottles are not present. Adherence: denies missed doses. Pharmacy: [facility] ACTIVE PROBLEM LIST Sleep Apnea Mixed Hyperlipidemia Allergic Rhinitis, Cause Unspecified Other and Unspecified Disc Disorder of Unspecified Region Irritable Bowel Syndrome Esophageal Reflux Impotence of Organic Origin Unspecified Asthma(493.90) Morbid Obesity (Hcc) Diabetes Mellitus (Hcc) Prostate Cancer (Hcc) Bone Metastases (Hcc) PAST MEDICAL HISTORY Diagnosis Date Allergic rhinitis, cause unspecified Cancer (HCC) Diabetes mellitus (HCC) 07/03/2015 Irritable bowel syndrome Obstructive sleep apnea Other and unspecified disc disorder of unspecified region Intervertebral disc disorders Other and unspecified hyperlipidemia Unspecified sleep apnea ALLERGIES Allergen Reactions Metformin Intolerance GI upset Environmental Other* Lipitor [Atorvastat* Other: See Comments elevated liver enzyme- muscle ache Current Outpatient Medications Medication Sig enzalutamide (XTANDI) 40 mg Take 2 capsules (80mg) by mouth once daily. dapagliflozin (FARXIGA) 5 mg tablet Take 1 tablet by mouth daily with breakfast. ergocalciferol 50,000 unit capsule (VITAMIN D2, DRISDOL) Take 1 capsule by mouth one time a week. dulaglutide (TRULICITY) 4.5 mg/0.5 mL pen injector Inject 4.5 mg subcutaneously one time a week. blood sugar diagnostic (ONETOUCH ULTRA TEST) test strip Test blood sugars once daily as needed. Dx: E11.65. Insulin: No dulaglutide (TRULICITY) 3 mg/0.5 mL pen injector Inject 3 mg subcutaneously one time a week. fexofenadine HCl (ANDREY ALLERGY ORAL) Take by mouth as needed. insulin glargine (LANTUS SOLOSTAR U-100 INSULIN) 100 unit/mL (3 mL) Inject 65 Units subcutaneously daily at bedtime. Insulin Davis, Disposable, (BD ULTRA-FINE NEVA PEN NEEDLE) 32 gauge x Use one needle for each dose. 1/day. CPAP Initiate Auto PAP @ 5-20 cm of water with humidification. Mask (per patient preference) optional chin strap (if indicated) , filters, tubing, humidifier and lifetime supplies. CPAP Initiate Auto PAP @ 5-20 cm of water with humidification. Mask (per patient preference) optional chin strap (if indicated) , filters, tubing, humidifier and lifetime supplies. psyllium husk, with sugar, (METAMUCIL FREE) 3 gram/7 gram powd Take by mouth. Taking once daily calcium citrate (CITRACAL ORAL) Take 2 tablets by mouth twice daily. leuprolide acetate (ELIGARD SUBCUTANEOUS) Inject subcutaneously every 3 months. Fish Oil-Shirley-3 Fatty Acids 300-1,000 mg cap 1 capsule. Daily Blood-Glucose Meter monitoring kit Glucose Meter of Choice - Kit - Dx: Type 2 DM - Uncontrolled E11.65. Check blood sugar once daily as needed. Lancets lancets Test blood sugar oncw daily. Dx: Type 2 DM - Uncontrolled E11.65 Insulin: No Shirley-3 Fatty Acids 500 mg cap Take 500 mg by mouth three times daily as needed. Fexofenadine-Pseudoephedrine (ANDREY-D 24 HOUR) 180-240 mg ORAL per 24 hr tablet Take one(1) tablet daily. (Patient not taking: Reported on 11/27/2021) BIPAP Use as directed No current facility-administered medications for this visit. EXAM: Last 3 Encounter BP Readings: Date: BP: 05/14/2022 142/72 05/10/2022 137/74 02/19/2022 143/64 Wt: 145.6 kg (321 lb) BMI: 40.55 kg/(m2) LABS: Lab Results Component Value Date HBA1C 8.5 02/19/2022 HBA1C 8.3 11/27/2021 HBA1C 8.2 09/03/2021 HBA1C 9.8 06/10/2021 HBA1C 11.4 03/20/2021 HBA1C 10.1 09/04/2020 CMP: G (more content not included)... [facility] 07-28-2022 History of Present illness Narrative Primary Care Pharmacy Visit CC (Reason for Consult): DM Goal: A1c<8% Last Collaborating Physician Visit: 07/31/2019 Jaspreet Costa is a 72 year old male presenting for follow up visit by telephone. Patient consents to pharmacy collaborative practice agreement. At last visit with pharmacy on 06/25/22 the following changes were made: Farxiga was started. INTERIM HISTORY: Has started Farxiga daily, reports fasting readings improved Before Farxiga, fasting readings were in the 190s range and now most readings in the 160s range Does not occasional fatigue midday since being on Farxiga, denies any s/sx of hypoglycemia or readings <70 mg/dL Recently saw eye doctor and was told all is well with vision Current DM Medications: Trulicity 4.5 mg weekly Lantus 65 units daily at bedtime Farxiga 5 mg once daily Past DM medications: Victoza Glipizide Metformin ER -d/c chart notes GI upset Glimepiride ROS: Patient denies CP, SOB, CAPUTO, blurred vision, dizziness or lightheadedness Patient denies nausea, vomiting, diarrhea, abdominal pain Patient denies symptoms of hypoglycemia (sweating, anxiety, palpitations, hunger, and tremor) Patient denies symptoms of hyperglycemia (polyuria, polydipsia, polyphagia) Patient denies potential medication adverse effects MEDICATIONS: Pill bottles are not present. Adherence: denies missed doses. Pharmacy: [facility] ACTIVE PROBLEM LIST Sleep Apnea Mixed Hyperlipidemia Allergic Rhinitis, Cause Unspecified Other and Unspecified Disc Disorder of Unspecified Region Irritable Bowel Syndrome Esophageal Reflux Impotence of Organic Origin Unspecified Asthma(493.90) Morbid Obesity (Hcc) Diabetes Mellitus (Hcc) Prostate Cancer (Hcc) Bone Metastases (Hcc) PAST MEDICAL HISTORY Diagnosis Date Allergic rhinitis, cause unspecified Cancer (HCC) Diabetes mellitus (HCC) 07/03/2015 Irritable bowel syndrome Obstructive sleep apnea Other and unspecified disc disorder of unspecified region Intervertebral disc disorders Other and unspecified hyperlipidemia Unspecified sleep apnea ALLERGIES Allergen Reactions Metformin Intolerance GI upset Environmental Other* Lipitor [Atorvastat* Other: See Comments elevated liver enzyme- muscle ache Current Outpatient Medications Medication Sig enzalutamide (XTANDI) 40 mg Take 2 capsules (80mg) by mouth once daily. dapagliflozin (FARXIGA) 5 mg tablet Take 1 tablet by mouth daily with breakfast. ergocalciferol 50,000 unit capsule (VITAMIN D2, DRISDOL) Take 1 capsule by mouth one time a week. dulaglutide (TRULICITY) 4.5 mg/0.5 mL pen injector Inject 4.5 mg subcutaneously one time a week. blood sugar diagnostic (Pathable ULTRA TEST) test strip Test blood sugars once daily as needed. Dx: E11.65. Insulin: No dulaglutide (TRULICITY) 3 mg/0.5 mL pen injector Inject 3 mg subcutaneously one time a week. fexofenadine HCl (ANDREY ALLERGY ORAL) Take by mouth as needed. insulin glargine (LANTUS SOLOSTAR U-100 INSULIN) 100 unit/mL (3 mL) Inject 65 Units subcutaneously daily at bedtime. Insulin Davis, Disposable, (BD ULTRA-FINE NEVA PEN NEEDLE) 32 gauge x Use one needle for each dose. 1/day. CPAP Initiate Auto PAP @ 5-20 cm of water with humidification. Mask (per patient preference) optional chin strap (if indicated) , filters, tubing, humidifier and lifetime supplies. CPAP Initiate Auto PAP @ 5-20 cm of water with humidification. Mask (per patient preference) optional chin strap (if indicated) , filters, tubing, humidifier and lifetime supplies. psyllium husk, with sugar, (METAMUCIL FREE) 3 gram/7 gram powd Take by mouth. Taking once daily calcium citrate (CITRACAL ORAL) Take 2 tablets by mouth twice daily. leuprolide acetate (ELIGARD SUBCUTANEOUS) Inject subcutaneously every 3 months. Fish Oil-Shirley-3 Fatty Acids 300-1,000 mg cap 1 capsule. Daily Blood-Glucose Meter monitoring kit Glucose Meter of Choice - Kit - Dx: Type 2 DM - Uncontrolled E11.65. Check blood sugar once daily as needed. Lancets lancets Test blood sugar oncw daily. Dx: Type 2 DM - Uncontrolled E11.65 Insulin: No Shirley-3 Fatty Acids 500 mg cap Take 500 mg by mouth three times daily as needed. Fexofenadine-Pseudoephedrine (ANDREY-D 24 HOUR) 180-240 mg ORAL per 24 hr tablet Take one(1) tablet daily. (Patient not taking: Reported on 11/27/2021) BIPAP Use as directed No current facility-administered medications for this visit. EXAM: Last 3 Encounter BP Readings: Date: BP: 05/14/2022 142/72 05/10/2022 137/74 02/19/2022 143/64 Wt: 145.6 kg (321 lb) BMI: 40.55 kg/(m^2) LABS: Lab Results Component Value Date HBA1C 8.5 02/19/2022 HBA1C 8.3 11/27/2021 HBA1C 8.2 09/03/2021 HBA1C 9.8 06/10/2021 HBA1C 11.4 03/20/2021 HBA1C 10.1 09/04/2020 CMP: Glucose 216 05/10/2022 BUN 14 05/10/2022 Creatinine 0.86 05/10/2022 Sodium 133 05/10/2022 Potassium 4.5 05/10/2022 Chloride 101 05/10/2022 CO2 23 05/10/2022 Protein, Total 6.8 05/10/2022 Albumin 4.0 05/10/2022 Calcium 9.2 05/10/2022 Alkaline Phosphatase 82 05/10/2022 Bilirubin, Total 0.2 05/10/2022 AST 24 05/10/2022 ALT 36 05/10/2022 Creatinine clearance cannot be calculated (Unknown ideal weight.) No results found for: GFR eGFR- (no units) Date Value 06/10/2021 >60 EGFR: >60 mL/min/1.73m2 Lab Results Component Value Date CHOL 228 06/10/2021 LDL 131 06/10/2021 HDL 58 06/10/2021 TG 195 06/10/2021 The 10-year ASCVD risk score (Aleksey YU, et al., 2019) is: 39.1% Values used to calculate the score: Age: 72 years Sex: Male Is Non- : No Diabetic: Yes Tobacco smoker: No Systolic Blood Pressure: 142 mmHg Is BP treated: No HDL Cholesterol: 58 mg/dL Total Cholesterol: 228 mg/dL Albumin/Creat Ratio (mg/g) Date Value 09/03/2021 <16 PHARMACOTHERAPY ASSESSMENT/PLAN: 1. Type 2 diabetes mellitus without complication, unspecified whether parts counterman insulin use (HCC) - ICD9: 250.00, ICD10: E11.9 A1c goal < 8%; not at goal (last A1c 8.5%); SMBG improving since addition of Farxiga. Patient reports increased fatigue, instructed to increase water intake to prevent dehydration. Will continue current regimen and reassess at next follow up. Renal function and LFTs appropriate for continued use. Continue Farxiga 5 mg once daily (pended to PCP) Continue Insulin glargine 65 units daily at bedtime Continue Trulicity 4.5 mg weekly Follow up: Patient is not scheduled to see PCP team. Overdue for PCP follow up, reminded patient to schedule follow up. Patient to follow up with pharmD on 08/27/22. Patient verbalized understanding of instructions. Jacquelin López PharmD, BCACP Primary Care Clinical Pharmacist The majority of the pharmacy visit (> 50%) was spent counseling and/or coordinating care for the patient. [Telephonic] time was 18 minutes. documented in this encounter [facility] 06-29-2022 History of Present illness Narrative [facility] Special[facility] Refill Assessment Medication(s): Xtandi No new clinical information to review since last SPP refill encounter. Next OV scheduled 2/3 for zometa. ALLERGIES Allergen Reactions Metformin Intolerance GI upset Environmental Other* Lipitor [Atorvastat* Other: See Comments elevated liver enzyme- muscle ache Patient's current medication list and adherence status to current therapy were reviewed by Specialty Pharmacy clinical pharmacist to identify any new drug interactions or non-compliance to therapy. Therapy continues to be appropriate for disease, patient response, and medical condition. Verification of therapeutic benefit and effectiveness with current therapy was completed. Adverse events, barriers in adherence, and side effects were assessed and addressed if applicable. Will proceed with refill with no changes in therapy - patient progressing towards achieving therapeutic goals based on medication-specific laboratory parameters, disease state markers and outcomes. Daylin Garner, Durga Clinical Pharmacist, Oncology [facility] P: , F Pool: P [facility] Pool #: [id number] Kinesiology Internship Assessment Patient confirmed: Yes Med/dose confirmed: Yes Supplies needed: No supplies needed Missed doses: No Estimated days supply on hand: 7 Copay amount: 0 Delivery method: FedEx Signature required: No Delivery address: [address] [place] [id number] Delivery date: 07/02/22 Questions or concerns for the pharmacist?: No [facility] Visit Assessment - Hematology/Oncology: Ivent complete: No Assessment to use: Refill Vaccination Assessment: Date of influenza vaccination reminder: 03/26/2022 Date of most recent vaccination assessment: 03/26/2022 Refill Assessment: Lab monitoring inclusive of CBC, Chem-7, and other labs as pertinent for therapy: Yes Chemo cycle timing assessment: N/A Screening for infection: Yes Adverse reactions and mitigation: Yes Medication changes and interaction assessment: Yes Assessment of injection issues: N/A Additional Assessment: Assessment of continued need for prophylactic medications at regular intervals: Yes Radiology procedure timing to assess for disease progression: Yes Scheduled future appointments: Yes Shelli Duvall documented in this encounter [facility] 06-25-2022 Miscellaneous Notes Noted and agree Rx filed Megan Loyd MD During pharmacy phone visit with patient today, discussed benefits of SGLT2 inh for improved BG control and ability to decrease insulin requirements. Patient agrees to start Farxiga 5 mg once daily. Since patient not seen by PCP in >18 months, unable to place order, will pend for PCP review/signature. Requested Prescriptions Pending Prescriptions Disp Refills dapagliflozin (FARXIGA) 5 mg tablet 30 tablet 2 Sig: Take 1 tablet by mouth daily with breakfast. Jacquelin López RPh documented in this encounter [facility] 06-02-2022 History of Present illness Narrative [employer] NAVIGATION OUTREACH Action/FYI Orders removed since provider did not sign within 7 days and encounter closed. Please have the office reach out to the patient to coordinate any further testing/appointment needs. PNavigation Signature: Yaz Carreon June 02, 2022 7:03 AM [employer] NAVIGATION OUTREACH Action/FYI Spoke to patient will place order for A1C Patient will schedule PAULA Patient would like a referral fot PT or OT ( review xray) When would you like to see patient Please call patient when available Pt identified by name and : YES, via phone Outreach Outcome/Action Spoke to patient or caregiver: No action required (information or reminder only) Did you use a PCP flex slot to schedule this appointment? N/A Reason for Outreach Care Gap or Scheduling/Wellness visits Payer: Payor: [employer] MEDICARE / Plan: [employer] MEDICARE PPO / Product Type: PPO / Care Gap Reviewed:: Diabetic Eye Exam HBA1C Flu vaccine Reminder: Reminder note to check Health Maintenance for items below Health Maintenance items due: PNEUMOCOCCAL: 65+(1 - PCV) Never done SHINGRIX VACCINE(1 of 2) Never done DIABETIC FOOT EXAM due on 06/06/2019 ANNUAL PCP TEAM CHRONIC DISEASE VISIT due on 07/31/2020 DILATED RETINAL EXAM due on 12/06/2020 ADVANCE DIRECTIVE DISCUSSION Never done DEPRESSION ASSESSMENT Never done COVID-19 VACCINE(4 - Booster for Moderna series) due on 11/04/2021 INFLUENZA(1) due on 03/04/2022 HBA1C due on 05/22/2022 LDL CHOLESTEROL due on 06/10/2022 Message Sent to Practice: No Navigation Signature: Yaz Carreon May 25, 2022 10:55 AM documented in this encounter [facility] 05-14-2022 History of Present illness Narrative Primary Care Pharmacy Visit CC (Reason for Consult): DM Goal: A1c<8% Last Collaborating Physician Visit: 07/31/2019 Jaspreet Costa is a 72 year old male presenting for follow up visit by telephone. Patient consents to pharmacy collaborative practice agreement. At last visit with pharmacy on 03/05/22 the following changes were made: Trulicity dose increase was recommended. INTERIM HISTORY: Patient has increase Trulicity dose to 4.5 mg weekly Tolerating current regimen with no ADEs Endorses some BG readings remain elevated, typically related to soda intake Does not like diet soda or artificial sweeteners. Continues to stay active with farming Current DM Medications: Dulaglutide (Trulicity) 4.5 mg weekly Insulin glargine (Lantus) 65 units daily at bedtime Past DM medications: Victoza Glipizide Metformin ER -d/c chart notes GI upset Glimepiride GLYCEMIC CONTROL: Glucometer present at visit: No SMBG s: No readings to review Hypoglycemia: denies ROS: Patient denies CP, SOB, CAPUTO, blurred vision, dizziness or lightheadedness Patient denies nausea, vomiting, diarrhea, abdominal pain Patient denies symptoms of hypoglycemia (sweating, anxiety, palpitations, hunger, and tremor) Patient denies symptoms of hyperglycemia (polyuria, polydipsia, polyphagia) Patient denies potential medication adverse effects MEDICATIONS: Pill bottles are not present. Adherence: denies missed doses. Pharmacy: [facility] ACTIVE PROBLEM LIST Sleep Apnea Mixed Hyperlipidemia Allergic Rhinitis, Cause Unspecified Other and Unspecified Disc Disorder of Unspecified Region Irritable Bowel Syndrome Esophageal Reflux Impotence of Organic Origin Unspecified Asthma(493.90) Morbid Obesity (Hcc) Diabetes Mellitus (Hcc) Prostate Cancer (Hcc) Bone Metastases (Hcc) PAST MEDICAL HISTORY Diagnosis Date Allergic rhinitis, cause unspecified Cancer (HCC) Diabetes mellitus (HCC) 07/03/2015 Irritable bowel syndrome Obstructive sleep apnea Other and unspecified disc disorder of unspecified region Intervertebral disc disorders Other and unspecified hyperlipidemia Unspecified sleep apnea ALLERGIES Allergen Reactions Metformin Intolerance GI upset Environmental Other* Lipitor [Atorvastat* Other: See Comments elevated liver enzyme- muscle ache Current Outpatient Medications Medication Sig ergocalciferol 50,000 unit capsule (VITAMIN D2, DRISDOL) Take 1 capsule by mouth one time a week. enzalutamide (XTANDI) 40 mg Take 2 capsules (80mg) by mouth once daily. dulaglutide (TRULICITY) 4.5 mg/0.5 mL pen injector Inject 4.5 mg subcutaneously one time a week. blood sugar diagnostic (MDdatacorTOUCH ULTRA TEST) test strip Test blood sugars once daily as needed. Dx: E11.65. Insulin: No dulaglutide (TRULICITY) 3 mg/0.5 mL pen injector Inject 3 mg subcutaneously one time a week. fexofenadine HCl (ANDREY ALLERGY ORAL) Take by mouth as needed. insulin glargine (LANTUS SOLOSTAR U-100 INSULIN) 100 unit/mL (3 mL) Inject 65 Units subcutaneously daily at bedtime. Insulin Davis, Disposable, (BD ULTRA-FINE NEVA PEN NEEDLE) 32 gauge x Use one needle for each dose. 1/day. CPAP Initiate Auto PAP @ 5-20 cm of water with humidification. Mask (per patient preference) optional chin strap (if indicated) , filters, tubing, humidifier and lifetime supplies. CPAP Initiate Auto PAP @ 5-20 cm of water with humidification. Mask (per patient preference) optional chin strap (if indicated) , filters, tubing, humidifier and lifetime supplies. psyllium husk, with sugar, (METAMUCIL FREE) 3 gram/7 gram powd Take by mouth. Taking once daily calcium citrate (CITRACAL ORAL) Take 2 tablets by mouth twice daily. leuprolide acetate (ELIGARD SUBCUTANEOUS) Inject subcutaneously every 3 months. Fish Oil-Shirley-3 Fatty Acids 300-1,000 mg cap 1 capsule. Daily Blood-Glucose Meter monitoring kit Glucose Meter of Choice - Kit - Dx: Type 2 DM - Uncontrolled E11.65. Check blood sugar once daily as needed. Lancets lancets Test blood sugar oncw daily. Dx: Type 2 DM - Uncontrolled E11.65 Insulin: No Shirley-3 Fatty Acids 500 mg cap Take 500 mg by mouth three times daily as needed. Fexofenadine-Pseudoephedrine (ANDREY-D 24 HOUR) 180-240 mg ORAL per 24 hr tablet Take one(1) tablet daily. (Patient not taking: Reported on 11/27/2021) BIPAP Use as directed No current facility-administered medications for this visit. Facility-Administered Medications Ordered in Other Visits Medication Dose Route Frequency PHARMACY COMMUNICATION PATIENT ARRIVED 1 Each OTHER PRN(NO DISPENSE) sodium chloride 0.9 % (flush) 10-20 mL (BD POSIFLUSH) 10-20 mL INTRAVENOUS PRN EXAM: Last 3 Encounter BP Readings: Date: BP: 05/14/2022 142/72 05/10/2022 137/74 02/19/2022 143/64 Wt: 145.6 kg (321 lb) BMI: 40.55 kg/(m^2) LABS: Lab Results Component Value Date HBA1C 8.5 02/19/2022 HBA1C 8.3 11/27/2021 HBA1C 8.2 09/03/2021 HBA1C 9.8 06/10/2021 HBA1C 11.4 03/20/2021 HBA1C 10.1 09/04/2020 CMP: Glucose 216 05/10/2022 BUN 14 05/10/2022 Creatinine 0.86 05/10/2022 Sodium 133 05/10/2022 Potassium 4.5 05/10/2022 Chloride 101 05/10/2022 CO2 23 05/10/2022 Protein, Total 6.8 05/10/2022 Albumin 4.0 05/10/2022 Calcium 9.2 05/10/2022 Alkaline Phosphatase 82 05/10/2022 Bilirubin, Total 0.2 05/10/2022 AST 24 05/10/2022 ALT 36 05/10/2022 Serum creatinine: 0.86 mg/dL 05/10/22 0814 Estimated creatinine clearance: 120.8 mL/min No results found for: GFR eGFR- (no units) Date Value 06/10/2021 >60 Lab Results Component Value Date CHOL 228 06/10/2021 LDL 131 06/10/2021 HDL 58 06/10/2021 TG 195 06/10/2021 The 10-year ASCVD risk score (Aleksey YU, et al., 2019) is: 39.1% Values used to calculate the score: Age: 72 years Sex: Male Is Non- : No Diabetic: Yes Tobacco smoker: No Systolic Blood Pressure: 142 mmHg Is BP treated: No HDL Cholesterol: 58 mg/dL Total Cholesterol: 228 mg/dL Albumin/Creat Ratio (mg/g) Date Value 09/03/2021 <16 PHARMACOTHERAPY ASSESSMENT/PLAN: 1. Type 2 diabetes mellitus without complication, unspecified whether parts counterman insulin use (HCC) - ICD9: 250.00, ICD10: E11.9 A1c goal < 8%; not at goal (last A1c 8.5%); SMBG elevated on current regimen due to diet excursions. Discussed considering addition of SGLT2 inh, patient declines, prefers to focus on cutting out soda for BG improvement. Renal function and LFTs appropriate for continued use Continue Insulin glargine 65 units daily at bedtime Continue Trulicity 4.5 mg weekly Follow up: Patient is not scheduled to see PCP team. Overdue for PCP follow up, reminded patient to schedule follow up. Patient to follow up with pharmD on 06/25/22. Patient verbalized understanding of instructions. Jacquelin López PharmD, BCACP Primary Care Clinical Pharmacist The majority of the pharmacy visit (> 50%) was spent counseling and/or coordinating care for the patient. [Telephonic] time was 15 minutes. documented in this encounter [facility] 05-12-2022 Miscellaneous Notes Patient notified and verbalized understanding. Jeannette Lawrence LPN Can let him know the x-rays of his neck show changes of arthritis and it looks like he had previous fusion surgery? Anyway, no sign of cancer which is good. Recommend he contact his PCP about a referral to physical therapy. Duong Lyn DO documented in this encounter [facility] 03-26-2022 History of Present illness Narrative [facility] Specialty Refill Assessment Medication(s): Xtandi No new clinical information to review since last SPP refill encounter. Next OV scheduled 05/14 w labs. Patient's current medication list and adherence status to current therapy were reviewed by Specialty Pharmacy clinical pharmacist to identify any new drug interactions or non-compliance to therapy. Therapy continues to be appropriate for disease, patient response, and medical condition. Verification of therapeutic benefit and effectiveness with current therapy was completed. Adverse events, barriers in adherence, and side effects were assessed and addressed if applicable. Will proceed with refill with no changes in therapy - patient progressing towards achieving therapeutic goals based on medication-specific laboratory parameters, disease state markers and outcomes. Daylin Garner, PharmD Clinical Pharmacist, Oncology [facility] Specialty Pharmacy P: , F Pool: P [facility] Pool #: [id number] Kinesiology Internship Assessment Patient confirmed: Yes Med/dose confirmed: Yes Supplies needed: No supplies needed Missed doses: No Estimated days supply on hand: 7 Copay amount: 0 Delivery method: FedEx Signature required: No Delivery address: [address] [place] [id number] Delivery date: 03/31/22 Questions or concerns for the pharmacist?: No [facility] Specialty Pharmacy Visit Assessment - Hematology/Oncology: Ivent complete: No Assessment to use: Refill Vaccination Assessment: Annual influenza vaccination reminder: Yes Date of influenza vaccination reminder: 03/26/2022 Vaccination assessment completed: Yes Date of most recent vaccination assessment: 03/26/2022 Refill Assessment: Lab monitoring inclusive of CBC, Chem-7, and other labs as pertinent for therapy: Yes Chemo cycle timing assessment: N/A Screening for infection: Yes Adverse reactions and mitigation: Yes Medication changes and interaction assessment: Yes Assessment of injection issues: N/A Additional Assessment: Assessment of continued need for prophylactic medications at regular intervals: Yes Radiology procedure timing to assess for disease progression: Yes Scheduled future appointments: Yes Shelliatilio Duvall documented in this encounter [facility] 03-09-2022 Miscellaneous Notes Notified via phone and mychart. Tina Spivey Ma OK to increase to 4.5 mg as ordered Megan Loyd MD Spoke with patient to follow up on BG readings today. Patient endorses elevated BG readings in the 160s-190s at fasting due to diet excursions. He would benefit from optimizing Trulicity dose to 4.5 mg weekly. Pending below for PCP review and signature as patient has not see PCP team >18 months. Also reminded patient that he is overdue for PCP follow up. Requested Prescriptions Pending Prescriptions Disp Refills dulaglutide (TRULICITY) 4.5 mg/0.5 mL pen injector 6 mL 4 Sig: Inject 4.5 mg subcutaneously one time a week. Jacquelin López RPh documented in this encounter [facility] 03-05-2022 History of Present illness Narrative Primary Care Pharmacy Visit CC (Reason for Consult): DM Goal: <8% Last Collaborating Physician Visit: 07/31/2019 Jaspreet Costa is a 71 year old male presenting for follow up visit by telephone. Patient consents to pharmacy collaborative practice agreement. At last visit with pharmacy on 01/15/22 the following changes were made: patient was instructed to complete lab work. INTERIM HISTORY: Patient reports in the past few weeks he has not been eating as well as he should Reports more frequent fast food - [employer] Reports that most readings have trended up int he 160s -190s range Has several boxes of Trulicity current strength that he would like to deplete before increasing dose further. Current DM Medications: Dulaglutide (Trulicity) 3 mg weekly Insulin glargine (Lantus) 65 units daily at bedtime Past DM medications: Victoza Glipizide Metformin ER -d/c chart notes GI upset Glimepiride GLYCEMIC CONTROL: Glucometer present at visit: No SMBG s: No readings to review, reports from recall that most readings are in the 160 -190s range Hypoglycemia: denies ROS: Patient denies CP, SOB, CAPUTO, blurred vision, dizziness or lightheadedness Patient denies nausea, vomiting, diarrhea, abdominal pain Patient denies symptoms of hypoglycemia (sweating, anxiety, palpitations, hunger, and tremor) Patient denies symptoms of hyperglycemia (polyuria, polydipsia, polyphagia) Patient denies potential medication adverse effects MEDICATIONS: Pill bottles are not present. Adherence: denies missed doses. [facility] ACTIVE PROBLEM LIST Sleep Apnea Mixed Hyperlipidemia Allergic Rhinitis, Cause Unspecified Other and Unspecified Disc Disorder of Unspecified Region Irritable Bowel Syndrome Esophageal Reflux Impotence of Organic Origin Unspecified Asthma(493.90) Morbid Obesity (Hcc) Diabetes Mellitus (Hcc) Prostate Cancer (Hcc) Bone Metastases (Hcc) PAST MEDICAL HISTORY Diagnosis Date Allergic rhinitis, cause unspecified Cancer (HCC) Diabetes mellitus (HCC) 07/03/2015 Irritable bowel syndrome Obstructive sleep apnea Other and unspecified disc disorder of unspecified region Intervertebral disc disorders Other and unspecified hyperlipidemia Unspecified sleep apnea ALLERGIES Allergen Reactions Metformin Intolerance GI upset Environmental Other* Lipitor [Atorvastat* Other: See Comments elevated liver enzyme- muscle ache Current Outpatient Medications Medication Sig blood sugar diagnostic (MDdatacorTOUCH ULTRA TEST) test strip Test blood sugars once daily as needed. Dx: E11.65. Insulin: No dulaglutide (TRULICITY) 3 mg/0.5 mL pen injector Inject 3 mg subcutaneously one time a week. fexofenadine HCl (ANDREY ALLERGY ORAL) Take by mouth as needed. insulin glargine (LANTUS SOLOSTAR U-100 INSULIN) 100 unit/mL (3 mL) Inject 65 Units subcutaneously daily at bedtime. enzalutamide (XTANDI) 40 mg Take 2 capsules (80mg) by mouth once daily. Insulin Davis, Disposable, (BD ULTRA-FINE NEVA PEN NEEDLE) 32 gauge x Use one needle for each dose. 1/day. CPAP Initiate Auto PAP @ 5-20 cm of water with humidification. Mask (per patient preference) optional chin strap (if indicated) , filters, tubing, humidifier and lifetime supplies. ergocalciferol 50,000 unit capsule (VITAMIN D2, DRISDOL) Take 1 capsule by mouth one time a week. CPAP Initiate Auto PAP @ 5-20 cm of water with humidification. Mask (per patient preference) optional chin strap (if indicated) , filters, tubing, humidifier and lifetime supplies. psyllium husk, with sugar, (METAMUCIL FREE) 3 gram/7 gram powd Take by mouth. Taking once daily calcium citrate (CITRACAL ORAL) Take 2 tablets by mouth twice daily. leuprolide acetate (ELIGARD SUBCUTANEOUS) Inject subcutaneously every 3 months. Fish Oil-Shirley-3 Fatty Acids 300-1,000 mg cap 1 capsule. Daily Blood-Glucose Meter monitoring kit Glucose Meter of Choice - Kit - Dx: Type 2 DM - Uncontrolled E11.65. Check blood sugar once daily as needed. Lancets lancets Test blood sugar oncw daily. Dx: Type 2 DM - Uncontrolled E11.65 Insulin: No Shirley-3 Fatty Acids 500 mg cap Take 500 mg by mouth three times daily as needed. Fexofenadine-Pseudoephedrine (ANDREY-D 24 HOUR) 180-240 mg ORAL per 24 hr tablet Take one(1) tablet daily. (Patient not taking: Reported on 11/27/2021) BIPAP Use as directed No current facility-administered medications for this visit. EXAM: Last 3 Encounter BP Readings: Date: BP: 02/19/2022 143/64 11/27/2021 142/66 09/04/2021 151/69 Wt: 146.7 kg (323 lb 8 oz) BMI: 40.86 kg/(m^2) LABS: Lab Results Component Value Date HBA1C 8.5 02/19/2022 HBA1C 8.3 11/27/2021 HBA1C 8.2 09/03/2021 HBA1C 9.8 06/10/2021 HBA1C 11.4 03/20/2021 HBA1C 10.1 09/04/2020 CMP: Glucose 191 02/19/2022 BUN 14 02/19/2022 Creatinine 0.88 02/19/2022 Sodium 135 02/19/2022 Potassium 4.3 02/19/2022 Chloride 101 02/19/2022 CO2 23 02/19/2022 Protein, Total 6.6 02/19/2022 Albumin 4.0 02/19/2022 Calcium 9.1 02/19/2022 Alkaline Phosphatase 71 02/19/2022 Bilirubin, Total 0.4 02/19/2022 AST 33 02/19/2022 ALT 40 02/19/2022 eGFR- (no units) Date Value 06/10/2021 >60 Lab Results Component Value Date CHOL 228 06/10/2021 LDL 131 06/10/2021 HDL 58 06/10/2021 TG 195 06/10/2021 The 10-year ASCVD risk score (Aleksey YU, et al., 2019) is: 37.4% Values used to calculate the score: Age: 71 years Sex: Male Is Non- : No Diabetic: Yes Tobacco smoker: No Systolic Blood Pressure: 143 mmHg Is BP treated: No HDL Cholesterol: 58 mg/dL Total Cholesterol: 228 mg/dL Albumin/Creat Ratio (mg/g) Date Value 09/03/2021 <16 PHARMACOTHERAPY ASSESSMENT/PLAN: 1. Type 2 diabetes mellitus without complication, unspecified whether correction insulin use (HCC) - ICD9: 250.00, ICD10: E11.9 A1c goal < 8%; not at goal (last A1c 8.5%); SMBG elevated on current regimen due to diet excursions. Patient would benefit from optimized Trulicity dose. In future, if readings remain elevated, can consider addition of SGLT2 inh. Renal function and LFTs appropriate for continued use CONTINUE Insulin glargine 65 units daily at bedtime Plan to increase Trulicity 4.5 mg weekly Pended to PCP in other encounter as patient has not seen PCP team in >18 months Follow up: Patient is not scheduled to see PCP team. Overdue for PCP follow up, reminded patient to schedule follow up. Patient to follow up with [facility] on 05/14/22. Patient verbalized understanding of instructions. Jacquelin López PharmD, BCACP Primary Care Clinical Pharmacist The majority of the pharmacy visit (> 50%) was spent counseling and/or coordinating care for the patient. [Telephonic] time was 20 minutes. documented in this encounter [facility] 02-19-2022 Miscellaneous Notes Hello! Can you please sign patients orders for today for Zometa? Thank you! documented in this encounter [facility] 12-18-2021 History of Present illness Narrative [facility] Specialty Refill Assessment Medication(s): Xtandi Therapy continues to be appropriate for disease, patient response, and medical condition. Verification of therapeutic benefit and effectiveness with current therapy. Adverse events, barriers in adherence, and side effects assessed and addressed. Will proceed with refill with no changes. [facility] Specialty Pharmacy Visit Assessment - Hematology/Oncology: Assessment to use: Refill Non-Clinical Assessment: Patient confirmed: Yes Med/dose confirmed: Yes Supplies needed: N/A Missed doses: No Estimated days supply on hand: 11 Copay amount: 0 Address confirmed: Yes Delivery method: FedEx Delivery address: [address] [place] [id number] Delivery date: 12/23/2021 Patient has questions: No Vaccination Assessment: Date of influenza vaccination reminder: 03/04/2021 Date of most recent vaccination assessment: 03/24/2021 Shelli Duvall documented in this encounter [facility] 12-04-2021 History of Present illness Narrative Primary Care Pharmacy Visit REASON FOR CONSULT: DM GOALS: A1c <8% CONSULTING PROVIDER: Megan Loyd MD Date of Consult: 03/25/2021 Jaspreet Costa is a 71 year old male presenting for follow up visit by telephone. Patient consents to pharmacy collaborative practice agreement. Last seen by PCP, Dr. Megan Loyd MD on 07/05/2019. At pharmD visit on 05/14, instructed pt to increase Trulicity dose to 1.5 mg weekly once completing starting dose supply. At PharmD visit on 06/25, no medication changes made as BG was improving. At PharmD visit on 09/11, no medication changes made. At last PharmD visit on 10/23, Trulicity dose was increased. INTERIM HISTORY: Patient tolerating current regimen well No ADEs with increased Trulicity dose Reports that his largest barrier is meals For most of his meals he is a guest at friends home and often has large portions and dessert available to him States his goal is to work on self control with meals and desserts. Knows what he should limit and have more of but finds it is challenging to implement Current DM Medications: Dulaglutide (Trulicity) 3 mg weekly Insulin glargine (Lantus) 65 units daily at bedtime Past DM medications: Victoza Glipizide Metformin ER -d/c chart notes GI upset Glimepiride Preventative Medications: On TOMMIE/ARB: No On Statin: No; does not tolerate GLYCEMIC CONTROL: Glucometer present at visit: N/a, phone visit SMBG s: No SMBG log to review, states readings range 140s -190s Hypoglycemia: denies ROS: Patient denies CP, SOB, CAPUTO, blurred vision, dizziness or lightheadedness Patient denies nausea, vomiting, diarrhea, abdominal pain Patient denies symptoms of hypoglycemia (sweating, anxiety, palpitations, hunger, and tremor) Patient denies symptoms of hyperglycemia (polyuria, polydipsia, polyphagia) Patient denies potential medication adverse effects MEDICATIONS: Pill bottles are not present. Adherence: denies missed doses. Pharmacy: [facility] ACTIVE PROBLEM LIST Sleep Apnea Mixed Hyperlipidemia Allergic Rhinitis, Cause Unspecified Other and Unspecified Disc Disorder of Unspecified Region Irritable Bowel Syndrome Esophageal Reflux Impotence of Organic Origin Unspecified Asthma(493.90) Morbid Obesity (Hcc) Diabetes Mellitus (Hcc) Prostate Cancer (Hcc) Bone Metastases (Hcc) PAST MEDICAL HISTORY Diagnosis Date Allergic rhinitis, cause unspecified Cancer (HCC) Diabetes mellitus (HCC) 07/03/2015 Irritable bowel syndrome Obstructive sleep apnea Other and unspecified disc disorder of unspecified region Intervertebral disc disorders Other and unspecified hyperlipidemia Unspecified sleep apnea ALLERGIES Allergen Reactions Metformin Intolerance GI upset Environmental Other* Lipitor [Atorvastat* Other: See Comments elevated liver enzyme- muscle ache Current Outpatient Medications Medication Sig fexofenadine HCl (ANDREY ALLERGY ORAL) Take by mouth as needed. insulin glargine (LANTUS SOLOSTAR U-100 INSULIN) 100 unit/mL (3 mL) Inject 65 Units subcutaneously daily at bedtime. dulaglutide (TRULICITY) 3 mg/0.5 mL pen injector Inject 3 mg subcutaneously one time a week. enzalutamide (XTANDI) 40 mg Take 2 capsules (80mg) by mouth once daily. Insulin Davis, Disposable, (BD ULTRA-FINE NEVA PEN NEEDLE) 32 gauge x Use one needle for each dose. 1/day. CPAP Initiate Auto PAP @ 5-20 cm of water with humidification. Mask (per patient preference) optional chin strap (if indicated) , filters, tubing, humidifier and lifetime supplies. ergocalciferol 50,000 unit capsule (VITAMIN D2, DRISDOL) Take 1 capsule by mouth one time a week. blood sugar diagnostic (ONETOUCH ULTRA TEST STRIP) test strip Use as instructed to check blood sugar level 1-2 times daily. CPAP Initiate Auto PAP @ 5-20 cm of water with humidification. Mask (per patient preference) optional chin strap (if indicated) , filters, tubing, humidifier and lifetime supplies. psyllium husk, with sugar, (METAMUCIL FREE) 3 gram/7 gram powd Take by mouth. Taking once daily calcium citrate (CITRACAL ORAL) Take 2 tablets by mouth twice daily. leuprolide acetate (ELIGARD SUBCUTANEOUS) Inject subcutaneously every 3 months. Fish Oil-Shirley-3 Fatty Acids 300-1,000 mg cap 1 capsule. Daily blood sugar diagnostic (BLOOD GLUCOSE TEST) test strip Test blood sugar twice daily. Dx: Type 2 DM - Uncontrolled E11. Insulin: yes Blood-Glucose Meter monitoring kit Glucose Meter of Choice - Kit - Dx: Type 2 DM - Uncontrolled . Check blood sugar once daily as needed. Lancets lancets Test blood sugar oncw daily. Dx: Type 2 DM - Uncontrolled . Insulin: No Shirley-3 Fatty Acids 500 mg cap Take 500 mg by mouth three times daily as needed. Fexofenadine-Pseudoephedrine (ANDREY-D 24 HOUR) 180-240 mg ORAL per 24 hr tablet Take one(1) tablet daily. (Patient not taking: Reported on 11/27/2021) BIPAP Use as directed No current facility-administered medications for this visit. EXAM: Last 3 Encounter BP Readings: Date: BP: 11/27/2021 142/66 09/04/2021 151/69 06/12/2021 146/77 Wt: 146.7 kg (323 lb 8 oz) BMI: 40.86 kg/(m^2) LABS: Lab Results Component Value Date HBA1C 8.3 11/27/2021 HBA1C 8.2 09/03/2021 HBA1C 9.8 06/10/2021 HBA1C 11.4 03/20/2021 HBA1C 10.1 09/04/2020 CMP: Glucose 172 11/27/2021 BUN 15 11/27/2021 Creatinine 0.81 11/27/2021 Sodium 135 11/27/2021 Potassium 4.3 11/27/2021 Chloride 101 11/27/2021 CO2 23 11/27/2021 Protein, Total 7.6 11/27/2021 Albumin 4.4 11/27/2021 Calcium 9.2 11/27/2021 Alkaline Phosphatase 77 11/27/2021 Bilirubin, Total 0.4 11/27/2021 AST 31 11/27/2021 ALT 44 11/27/2021 Serum creatinine: 0.81 mg/dL 11/27/21 0917 Estimated creatinine clearance: 130.6 mL/min Vitamin B12 Date Value Ref Range Status 10/03/2009 976 (H) 221 - 700 pg/mL Final Lab Results Component Value Date CHOL 228 06/10/2021 LDL 131 06/10/2021 HDL 58 06/10/2021 TG 195 06/10/2021 The 10-year ASCVD risk score ([place] ALONSO Jr., et al., 2013) is: 37% Values used to calculate the score: Age: 71 years Sex: Male Is Non- : No Diabetic: Yes Tobacco smoker: No Systolic Blood Pressure: 142 mmHg Is BP treated: No HDL Cholesterol: 58 mg/dL Total Cholesterol: 228 mg/dL Albumin/Creat Ratio (mg/g) Date Value 09/03/2021 <16 PHARMACOTHERAPY ASSESSMENT/PLAN: 1. Type 2 diabetes mellitus without complication, unspecified whether correction insulin use (HCC) - ICD9: 250.00, ICD10: E11.9 A1c goal < 8%; almost at goal (last A1c 8.3%); SMBG elevated on current regimen due to diet excursions. Patient wishes to focus on lifestyle changes at this time. Encouraged limiting desserts and portion sizes of high carb foods. Will reassess BG readings at next follow up. Renal function and LFTs appropriate for continued use CONTINUE Insulin glargine 65 units daily at bedtime, Trulicity 3 mg weekly Follow up: Patient is not scheduled to see PCP. Patient to follow up with PharmD on 01/15/22. Patient verbalized understanding of instructions. Jacquelin López PharmD, BCACP Primary Care Clinical Pharmacist [facility] The majority of the pharmacy visit (> 50%) was spent counseling and/or coordinating care for the patient. [Telephonic] time was 16 minutes. documented in this encounter [facility] 11-27-2021 History of Present illness Narrative Diagnosis: 1) Castrate sensitive metastatic prostate cancer. HPI: The patient is a 71-year-old male with a past medical history significant for type 2 diabetes, mixed hyperlipidemia and obstructive sleep apnea. Presented to the emergency department at [facility] on 05/11/2019 with a complaint of not feeling well. About a month prior to the visit he was started on metformin for worsening hyperglycemia. He did not tolerate that medication well and he was transitioned in slowing. In the week prior to ER presentation his insulin-requiring onset double. He then developed abdominal distention and a general feeling of malaise. CT A/P 02/11/2019: FINDINGS: The visualized lung bases are unremarkable. The visualized portions of the heart are within normal limits. There is decreased attenuation of the liver consistent with steatosis. Normal gallbladder and extrahepatic biliary system. Normal spleen. There is diffuse atrophy of the pancreas. Normal bilateral adrenal glands. Right perinephric fat stranding or edema. Moderate right hydronephrosis without hydroureter. No obstructing stone. There is also left-sided hydronephrosis and left ureter. Prominent distention of the bladder suggesting urinary retention Normal visualized stomach. Normal small intestine. Prominent gaseous distended loops of colon with fecal retention. There is transition area with wall narrowing in the region of the rectum. Colonic diverticulosis without acute diverticulitis. The appendix is visualized and appears normal. Several prominent nonspecific pelvic lymph nodes. Normal abdominal aorta. Normal inferior vena cava. Normal retroperitoneum. Marked distention of the bladder compatible with urinary retention. Heterogeneous prostate Normal abdominal wall. There are diffuse degenerative changes of the visualized lumbar spine. IMPRESSION: 1. Significant distention of the urinary bladder with bilateral hydronephrosis and hydroureter without evidence of obstructing stone. There is bilateral perinephric fat stranding and edema suggesting inflammation and infection. Recommend placement of Sanchez catheter for decompression of the bladder. 2. There is prominent gaseous distended loops of colon with fecal retention. There appears to be transition point in the rectosigmoid colon with suspicion of wall thickening and underlying mass. Numerous prominent and suspicious pelvic lymph nodes are noted. Significantly serum creatinine was elevated to 8.69 mg/dL. Sanchez catheter was placed and evidently 2 L and urine was drained. Patient was admitted to the hospital for further workup. Serum creatinine decreased to 2.4 mg/dL as of 02/12 and was down to 0.97 mg/dL at the time of discharge on 02/13. PSA on 02/11/2019 was 107.00 ng/mL. He underwent colonoscopy on 02/13/2019. The preparation the colon was noted to be fair. On the prostate, the left lobe was suspicious for a mass about 2-6 cm from the anal verge. There was a 4 mm polyp in the sigmoid colon that was removed with cold biopsy forceps. The examination was otherwise normal. The polyp returned as hyperplastic histology. Patient then underwent outpatient workup of suspicious prostate cancer. He underwent transurethral resection of prostate and transrectal prostate biopsy on 02/20/2019. Pathology: MICROSCOPIC DIAGNOSIS A. Prostate, needle corer biopsy: Adenocarcinoma: Claude grade: 7 (3+4) Cores involved: 3/3 Tissue involved: 60% Greatest tumor length:13 mm Perineural invasion: present B. Prostate, transurethral resection: Minute focus of adenocarcinoma. Fairfield grade 7 (3+4) Cores involved: 1 Greatest tumor length: 2 mm Bone scan 03/09/2019: FINDINGS: Following the intravenous administration of 22.2 mCi of 99m Tc MDP, whole body bone images reveal: 1. Increased radiopharmaceutical concentration is identified in the right scapula in two separate locations, right iliac wing, the seventh thoracic vertebra posteriorly on the left and right, the left posterior ninth rib, heterogeneously defined in the proximal-distal sternum. 2. Facilitated tracer concentration is noted in the acromioclavicular compartments of both shoulders, right knee, bilateral ankle articulations. 3. The remaining skeletal structures are scintigraphically unremarkable with normal-appearing renal images and urinary bladder activity identified. IMPRESSION: 1. The increase in radiopharmaceutical concentration identified in the right scapula, right iliac wing, seventh thoracic vertebra, left posterior ninth rib, proximal-distal sternum likely represent skeletal metastatic disease. Plain film radiography correlation may be of benefit in the region of the right scapula, right iliac wing and seventh thoracic vertebra. 2. 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 Current therapy: 1) Eligard q [address] Jorge's office. 2) Xtandi. Presents for ongoing oncologic management. Interim history: He has been on two Xtandi tablets daily due to testicular and breast tenderness at 4 tablets daily. Occasionally still has discomfort in left breast and will take one tablet that day. Voids well during the day. Still having nocturia hourly with small volume. His urologist suggested straight cath again, but he prefers frequent urination. Hot flashes. Denies MS pain. Still active with farming. PMH, medications and allergies personally reviewed by me today. Any changes documented in appropriate section. ROS: Constitutional: Denies episodes of fever and night sweats. Normal appetite. Neuro: Denies CAPUTO, vertigo, dizziness and imbalance. Denies symptoms of neuropathy. HEENT: No recent change in voice, vision or hearing. Resp: Denies cough, wheeze and hemoptysis. Denies shortness of breath at rest. Denies LEE. CVS: Denies exertional chest pain, PND, orthopnea and LE edema. GI: Denies dysgeusia. Denies symptoms of stomatitis. Denies dysphagia and odynophagia. Denies reflux, n/v, change in bowel habits and abdominal pain. : See above. Endo: See above. Musculoskeletal: See above. Derm: Denies rash. Denies jaundice and diffuse pruritis. Heme: Denies unusual bleeding and unexplained bruising. Psych: Normal mood. PHYSICAL EXAM: Vitals: Blood pressure 142/66, pulse 71, temperature (!) 35.7 C (96.2 F), weight (!) 146.7 kg (323 lb 8 oz), SpO2 97 %. Well-appearing and in no acute distress. EYES: Sclerae are anicteric bilaterally.. NECK: Supple. LYMPHATIC: There is no palpable cervical or supraclavicular adenopathy. RESPIRATORY: Inspiratory breath sounds are of normal intensity in all wilkerson. No rales, wheezes or rhonchi. CARDIOVASCULAR: Rhythm is regular. Normal intensity S1/S2. ABDOMEN: The abdomen is nondistended. No organomegaly. No tenderness. Extremities: No swelling or edema. SKIN: No jaundice or rash. No petechiae. NEUROLOGIC: lining closer II-XII are grossly intact. No focal motor weakness. MUSCULOSKELETAL: No muscle wasting. LABS: Component Latest Ref Rng & Units 11/27/2021 WBC 3.70 - 11.00 k/uL 6.75 RBC 4.20 - 6.00 m/uL 5.05 Hemoglobin 13.0 - 17.0 g/dL 14.3 Hematocrit 39.0 - 51.0 % 44.2 MCV 80.0 - 100.0 fL 87.5 MCH 26.0 - 34.0 pg 28.3 MCHC 30.5 - 36.0 g/dL 32.4 RDW-CV 11.5 - 15.0 % 13.8 Platelet Count 150 - 400 k/uL 262 MPV 9.0 - 12.7 fL 10.1 Neut% % 53.8 Abs Neut (ANC) 1.45 - 7.50 k/uL 3.63 Lymph% % 31.3 Abs Lymph 1.00 - 4.00 k/uL 2.11 Menard% % 9.9 Abs Menard <0.87 k/uL 0.67 Eosin% % 3.4 Abs Eosin <0.46 k/uL 0.23 Baso% % 1.0 Abs Baso <0.11 k/uL 0.07 Immature Gran % % 0.6 IMMATURE GRANS (ABS) <0.10 k/uL 0.04 NRBC /100 WBC 0.0 Absolute nRBC <0.01 k/uL <0.01 DTYPE Auto Glucose 74 - 99 mg/dL 172 (H) BUN 9 - 24 mg/dL 15 Creatinine 0.73 - 1.22 mg/dL 0.81 Sodium 136 - 144 mmol/L 135 (L) Potassium 3.7 - 5.1 mmol/L 4.3 Chloride 97 - 105 mmol/L 101 CO2 22 - 30 mmol/L 23 Anion Gap 9 - 18 mmol/L 11 Calcium 8.5 - 10.2 mg/dL 9.2 eGFR >=60 mL/min/1.73m 95 Albumin 3.9 - 4.9 g/dL 4.4 Bilirubin, Total 0.2 - 1.3 mg/dL 0.4 Bilirubin, Conjug <0.2 mg/dL <0.2 Alkaline Phosphatase 38 - 113 U/L 77 AST 14 - 40 U/L 31 ALT 10 - 54 U/L 44 Protein, Total 6.3 - 8.0 g/dL 7.6 Component Latest Ref Rng & Units 04/24/2019 07/12/2019 10/04/2019 01/24/2020 04/16/2020 08/07/2020 10/02/2020 12/25/2020 03/20/2021 06/10/2021 PSA <2.6 ng/mL 3.12 (H) 1.01 0.56 0.30 0.22 0.16 0.14 0.12 0.10 0.1 ASSESSMENT/PLAN: (C61) Prostate cancer (HCC) (C79.51) Bone metastases (HCC) Assessment: -The patient is a 71-year-old male who was diagnosed with metastatic adenocarcinoma of the prostate after presenting with urinary obstruction. Bone scan suggested multiple skeletal metastases none of which were symptomatic at presentation. -Overall tolerating GnRH and Xtandi, but several months ago he decreased Xtandi to 2 tablets a day because of tender breasts and testicular pain. Symptoms far more tolerable at current dose of 2 tablets a day. -Improved and stable urinary outlet obstruction symptoms. 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 Plan: -Continue every [address] Jorge's office. -Continue Xtandi--okay 2 tablets a day for now. If PSA significantly trends up, will have to consider increasing dose. -Labs every 3 months. -Continue monthly Zometa every 3 months. -PSA every 3 months. -Follow-up with Dr. Jorge for urinary outlet obstructive symptoms. -Follow up with PCP for other health care needs. Portions of this documentation were copied and pasted from previous office visit notes in order to provide a cohesive continuity of the history. The note has been reviewed and edited and updated as necessary. Duong Lyn DO documented in this encounter [facility] 11-19-2021 Miscellaneous Notes Pt has requested refill of Lantus in prior [employer] message. The following approved medication requests have been transmitted electronically. Signed Prescriptions Disp Refills insulin glargine (LANTUS SOLOSTAR U-100 INSULIN) 100 unit/mL (3 mL) 30 mL 5 Sig: Inject 65 Units subcutaneously daily at bedtime. ANTON: No Authorizing Provider: MEGAN LOYD Ordering User: JACQUELIN LÓPEZ, PharmD, BCACP Primary Care Clinical Pharmacist [facility] documented in this encounter [facility] 11-16-2021 Miscellaneous Notes The following approved medication requests have been transmitted electronically. Signed Prescriptions Disp Refills dulaglutide (TRULICITY) 3 mg/0.5 mL pen injector 2 mL 1 Sig: Inject 3 mg subcutaneously one time a week. ANTON: No Jacquelin López RPh documented in this encounter [facility] 11-11-2021 Miscellaneous Notes Patient's request for medication is as follows Signed Prescriptions Disp Refills enzalutamide (XTANDI) 40 mg 120 capsule 1 Sig: Take 2 capsules (80mg) by mouth once daily. ANTON: No Authorizing Provider: HORACIO REINOSO Order entered - please phone pharmacy and notify patient. Horacio Reinoso MD documented in this encounter [facility] 10-23-2021 History of Present illness Narrative Primary Care Pharmacy Visit REASON FOR CONSULT: DM GOALS: A1c <8% CONSULTING PROVIDER: Megan Loyd MD Date of Consult: 03/25/2021 Jaspreet Costa is a 71 year old male presenting for follow up visit by telephone. Patient consents to pharmacy collaborative practice agreement. Last seen by PCP, Dr. Megan Loyd MD on 07/05/2019. At pharmD visit on 05/14, instructed pt to increase Trulicity dose to 1.5 mg weekly once completing starting dose supply. At PharmD visit on 06/25, no medication changes made as BG was improving. At last PharmD visit on 09/11, no medication changes made. 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 Current DM Medications: Dulaglutide (Trulicity) 1.5 mg weekly Insulin glargine (Lantus) 65 units daily at bedtime Past DM medications: Victoza Glipizide Metformin ER -d/c chart notes GI upset Glimepiride Preventative Medications: On TOMMIE/ARB: No On Statin: No; does not tolerate GLYCEMIC CONTROL: Glucometer present at visit: N/a, phone visit SMBG s: States most BG readings have increased from typically in the 160s to now in the 200s Hypoglycemia: denies ROS: Patient denies CP, SOB, CAPUTO, blurred vision, dizziness or lightheadedness Patient denies nausea, vomiting, diarrhea, abdominal pain Patient denies symptoms of hypoglycemia (sweating, anxiety, palpitations, hunger, and tremor) Patient denies symptoms of hyperglycemia (polyuria, polydipsia, polyphagia) Patient denies potential medication adverse effects MEDICATIONS: Pill bottles are not present. Adherence: denies missed doses. Pharmacy: [facility] ACTIVE PROBLEM LIST Sleep Apnea Mixed Hyperlipidemia Allergic Rhinitis, Cause Unspecified Other and Unspecified Disc Disorder of Unspecified Region Irritable Bowel Syndrome Esophageal Reflux Impotence of Organic Origin Unspecified Asthma(493.90) Morbid Obesity (Hcc) Diabetes Mellitus (Hcc) Prostate Cancer (Hcc) Bone Metastases (Hcc) PAST MEDICAL HISTORY Diagnosis Date Allergic rhinitis, cause unspecified Cancer (HCC) Diabetes mellitus (HCC) 07/03/2015 Irritable bowel syndrome Obstructive sleep apnea Other and unspecified disc disorder of unspecified region Intervertebral disc disorders Other and unspecified hyperlipidemia Unspecified sleep apnea ALLERGIES Allergen Reactions Metformin Intolerance GI upset Environmental Other* Lipitor [Atorvastat* Other: See Comments elevated liver enzyme- muscle ache Current Outpatient Medications Medication Sig dulaglutide (TRULICITY) 1.5 mg/0.5 mL pen injector Inject 1.5 mg subcutaneously one time a week. enzalutamide (XTANDI) 40 mg Take 2 capsules (80mg) by mouth once daily. Insulin Davis, Disposable, (BD ULTRA-FINE NEVA PEN NEEDLE) 32 gauge x Use one needle for each dose. 1/day. CPAP Initiate Auto PAP @ 5-20 cm of water with humidification. Mask (per patient preference) optional chin strap (if indicated) , filters, tubing, humidifier and lifetime supplies. ergocalciferol 50,000 unit capsule (VITAMIN D2, DRISDOL) Take 1 capsule by mouth one time a week. insulin glargine (LANTUS SOLOSTAR U-100 INSULIN) 100 unit/mL (3 mL) Inject 65 Units subcutaneously daily at bedtime. blood sugar diagnostic (ONETOUCH ULTRA TEST STRIP) test strip Use as instructed to check blood sugar level 1-2 times daily. CPAP Initiate Auto PAP @ 5-20 cm of water with humidification. Mask (per patient preference) optional chin strap (if indicated) , filters, tubing, humidifier and lifetime supplies. psyllium husk, with sugar, (METAMUCIL FREE) 3 gram/7 gram powd Take by mouth. Taking once daily calcium citrate (CITRACAL ORAL) Take 2 tablets by mouth twice daily. leuprolide acetate (ELIGARD SUBCUTANEOUS) Inject subcutaneously every 3 months. Fish Oil-Shirley-3 Fatty Acids 300-1,000 mg cap 1 capsule. Daily blood sugar diagnostic (BLOOD GLUCOSE TEST) test strip Test blood sugar twice daily. Dx: Type 2 DM - Uncontrolled Insulin: yes Blood-Glucose Meter monitoring kit Glucose Meter of Choice - Kit - Dx: Type 2 DM - Uncontrolled . Check blood sugar once daily as needed. Lancets lancets Test blood sugar oncw daily. Dx: Type 2 DM - Uncontrolled E11.65 Insulin: No Shirley-3 Fatty Acids 500 mg cap Take 500 mg by mouth three times daily as needed. Fexofenadine-Pseudoephedrine (ANDREY-D 24 HOUR) 180-240 mg ORAL per 24 hr tablet Take one(1) tablet daily. BIPAP Use as directed No current facility-administered medications for this visit. EXAM: Last 3 Encounter BP Readings: Date: BP: 09/04/2021 151/69 06/12/2021 146/77 06/11/2021 139/65 Wt: 149.2 kg (329 lb) BMI: 41.56 kg/(m^2) LABS: Lab Results Component Value Date HBA1C 8.2 09/03/2021 HBA1C 9.8 06/10/2021 HBA1C 11.4 03/20/2021 HBA1C 10.1 09/04/2020 CMP: Glucose 167 09/03/2021 BUN 14 09/03/2021 Creatinine 0.92 09/03/2021 Sodium 136 09/03/2021 Potassium 4.2 09/03/2021 Chloride 101 09/03/2021 CO2 26 09/03/2021 Protein, Total 6.9 09/03/2021 Albumin 4.0 09/03/2021 Calcium 9.1 09/03/2021 Alkaline Phosphatase 72 09/03/2021 Bilirubin, Total 0.4 09/03/2021 AST 37 09/03/2021 ALT 46 09/03/2021 Serum creatinine: 0.92 mg/dL 09/03/21 0840 Estimated creatinine clearance: 116 mL/min Vitamin B12 Date Value Ref Range Status 10/03/2009 976 (H) 221 - 700 pg/mL Final Lab Results Component Value Date CHOL 228 06/10/2021 LDL 131 06/10/2021 HDL 58 06/10/2021 TG 195 06/10/2021 The 10-year ASCVD risk score ([place] ALONSO Jr., et al., 2013) is: 40.3% Values used to calculate the score: Age: 71 years Sex: Male Is Non- : No Diabetic: Yes Tobacco smoker: No Systolic Blood Pressure: 151 mmHg Is BP treated: No HDL Cholesterol: 58 mg/dL Total Cholesterol: 228 mg/dL Albumin/Creat Ratio (mg/g) Date Value 09/03/2021 <16 PHARMACOTHERAPY ASSESSMENT/PLAN: 1. Type 2 diabetes mellitus without complication, unspecified whether correction insulin use (HCC) - ICD9: 250.00, ICD10: E11.9 A1c goal < 8%; almost at goal (last A1c 8.2%); SMBG elevated on current regimen due to diet excursions. Today, discussed benefits of increasing Trulicity dose. Pt is in agreement, has large supply of current dose and prefers to take 2 of the 1.5 mg pens weekly to first see if able to tolerate regimen before changing dose pen. Renal function and LFTs appropriate for continued use INCREASE Trulicity to 3 mg weekly Pt prefers to take 2 of Current supply (1.5 mg pens) and then consider increasing to 3 mg weekly dosage pen if able to tolerate CONTINUE Insulin glargine 65 units daily at bedtime HbA1c: due 12/04/21 Follow up: Patient is not scheduled to see PCP. Patient to follow up with PharmD on 12/04/21. Patient verbalized understanding of instructions. Jacquelin López PharmD, BCACP Primary Care Clinical Pharmacist [facility] The majority of the pharmacy visit (> 50%) was spent counseling and/or coordinating care for the patient. [Telephonic] time was 18 minutes. documented in this encounter [facility] 10-12-2021 History of Present illness Narrative [facility] Refill Assessment Medication(s): Xtandi Therapy continues to be appropriate for disease, patient response, and medical condition. Verification of therapeutic benefit and effectiveness with current therapy. Adverse events, barriers in adherence, and side effects assessed and addressed. Will proceed with refill with no changes. [facility] Pharm[facility] Visit Assessment - Hematology/Oncology: Assessment to use: Refill Non-Clinical Assessment: Patient confirmed: Yes Med/dose confirmed: Yes Supplies needed: N/A Missed doses: No Estimated days supply on hand: 12 Copay amount: 0 Address confirmed: Yes Delivery method: FedEx Delivery address: [address] [place] [address] *put in ups box* [facility] [id number] Delivery date: 10/16/2021 Patient has questions: No Vaccination Assessment: Date of influenza vaccination reminder: 03/04/2021 Date of most recent vaccination assessment: 03/24/2021 Shelli Duvall documented in this encounter [facility] 09-28-2021 Miscellaneous Notes rx pended, please advise Emilia Johnson Ma documented in this encounter [facility] 09-11-2021 History of Present illness Narrative Primary Care Pharmacy Visit REASON FOR CONSULT: DM GOALS: A1c <8% CONSULTING PROVIDER: Megan Loyd MD Date of Consult: 03/25/2021 Jaspreet Costa is a 71 year old male presenting for follow up visit by telephone. Patient consents to pharmacy collaborative practice agreement. Last seen by PCP, Dr. Megan Loyd MD on 07/05/2019. Labs on 03/20/2021 indicated elevated A1c and patient was consulted to pharmacy at telephone encounter on 03/25/2021. At PharmD visit on 04/15/2021,Trulicity 0.75 weekly was started; Pen needle Rx renewed - educated patient on proper needle use as patient reported using same pen needle multiple times. At pharmD visit on 05/14, instructed pt to increase Trulicity dose to 1.5 mg weekly once completing starting dose supply. At PharmD visit on 06/25, no medication changes made as BG was improving. At last PharmD visit on 08/06, no medication changes made and patient was instructed to complete A1c. 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 Most readings in 160s at fasting and 2 hours after dinner Hypoglycemia: denies ROS: Patient denies CP, SOB, CAPUTO, blurred vision, dizziness or lightheadedness Patient denies nausea, vomiting, diarrhea, abdominal pain Patient denies symptoms of hypoglycemia (sweating, anxiety, palpitations, hunger, and tremor) Patient denies symptoms of hyperglycemia (polyuria, polydipsia, polyphagia) Patient denies potential medication adverse effects DIET/EXERCISE/SOCIAL Hx: No lifestyle changes made since last visit Aware of changes that need to be made, but admits he hasn't changed anything Beverages: continues to drink ~4 cans of soda to keep him awake at work MEDICATIONS: Pill bottles are not present. Adherence: denies missed doses. Pharmacy: [facility] ACTIVE PROBLEM LIST Sleep Apnea Mixed Hyperlipidemia Allergic Rhinitis, Cause Unspecified Other and Unspecified Disc Disorder of Unspecified Region Irritable Bowel Syndrome Esophageal Reflux Impotence of Organic Origin Unspecified Asthma(493.90) Morbid Obesity (Hcc) Diabetes Mellitus (Hcc) Prostate Cancer (Hcc) Bone Metastases (Hcc) PAST MEDICAL HISTORY Diagnosis Date Allergic rhinitis, cause unspecified Cancer (HCC) Diabetes mellitus (HCC) 07/03/2015 Irritable bowel syndrome Obstructive sleep apnea Other and unspecified disc disorder of unspecified region Intervertebral disc disorders Other and unspecified hyperlipidemia Unspecified sleep apnea ALLERGIES Allergen Reactions Metformin Intolerance GI upset Environmental Other* Lipitor [Atorvastat* Other: See Comments elevated liver enzyme- muscle ache Current Outpatient Medications Medication Sig enzalutamide (XTANDI) 40 mg Take 2 capsules (80mg) by mouth once daily. dulaglutide (TRULICITY) 1.5 mg/0.5 mL pen injector Inject 1.5 mg subcutaneously one time a week. Insulin Davis, Disposable, (BD ULTRA-FINE NEVA PEN NEEDLE) 32 gauge x Use one needle for each dose. 1/day. CPAP Initiate Auto PAP @ 5-20 cm of water with humidification. Mask (per patient preference) optional chin strap (if indicated) , filters, tubing, humidifier and lifetime supplies. ergocalciferol 50,000 unit capsule (VITAMIN D2, DRISDOL) Take 1 capsule by mouth one time a week. insulin glargine (LANTUS SOLOSTAR U-100 INSULIN) 100 unit/mL (3 mL) Inject 65 Units subcutaneously daily at bedtime. blood sugar diagnostic (ONETOUCH ULTRA TEST STRIP) test strip Use as instructed to check blood sugar level 1-2 times daily. CPAP Initiate Auto PAP @ 5-20 cm of water with humidification. Mask (per patient preference) optional chin strap (if indicated) , filters, tubing, humidifier and lifetime supplies. psyllium husk, with sugar, (METAMUCIL FREE) 3 gram/7 gram powd Take by mouth. Taking once daily calcium citrate (CITRACAL ORAL) Take 2 tablets by mouth twice daily. leuprolide acetate (ELIGARD SUBCUTANEOUS) Inject subcutaneously every 3 months. Fish Oil-Shirley-3 Fatty Acids 300-1,000 mg cap 1 capsule. Daily blood sugar diagnostic (BLOOD GLUCOSE TEST) test strip Test blood sugar twice daily. Dx: Type 2 DM - Uncontrolled E11.65 Insulin: yes Blood-Glucose Meter monitoring kit Glucose Meter of Choice - Kit - Dx: Type 2 DM - Uncontrolled E11.65. Check blood sugar once daily as needed. Lancets lancets Test blood sugar oncw daily. Dx: Type 2 DM - Uncontrolled E11.65 Insulin: No Shirley-3 Fatty Acids 500 mg cap Take 500 mg by mouth three times daily as needed. Fexofenadine-Pseudoephedrine (ANDREY-D 24 HOUR) 180-240 mg ORAL per 24 hr tablet Take one(1) tablet daily. BIPAP Use as directed No current facility-administered medications for this visit. EXAM: Last 3 Encounter BP Readings: Date: BP: 09/04/2021 151/69 06/12/2021 146/77 06/11/2021 139/65 Wt: 149.2 kg (329 lb) BMI: 41.56 kg/(m^2) LABS: Lab Results Component Value Date HBA1C 8.2 09/03/2021 HBA1C 9.8 06/10/2021 HBA1C 11.4 03/20/2021 HBA1C 10.1 09/04/2020 CMP: Glucose 167 09/03/2021 BUN 14 09/03/2021 Creatinine 0.92 09/03/2021 Sodium 136 09/03/2021 Potassium 4.2 09/03/2021 Chloride 101 09/03/2021 CO2 26 09/03/2021 Protein, Total 6.9 09/03/2021 Albumin 4.0 09/03/2021 Calcium 9.1 09/03/2021 Alkaline Phosphatase 72 09/03/2021 Bilirubin, Total 0.4 09/03/2021 AST 37 09/03/2021 ALT 46 09/03/2021 Serum creatinine: 0.92 mg/dL 09/03/21 0840 Estimated creatinine clearance: 116 mL/min Vitamin B12 Date Value Ref Range Status 10/03/2009 976 (H) 221 - 700 pg/mL Final Lab Results Component Value Date CHOL 228 06/10/2021 LDL 131 06/10/2021 HDL 58 06/10/2021 TG 195 06/10/2021 The 10-year ASCVD risk score (Brenton ALONSO Jr., et al., 2013) is: 40.3% Values used to calculate the score: Age: 71 years Sex: Male Is Non- : No Diabetic: Yes Tobacco smoker: No Systolic Blood Pressure: 151 mmHg Is BP treated: No HDL Cholesterol: 58 mg/dL Total Cholesterol: 228 mg/dL Albumin/Creat Ratio (mg/g) Date Value 09/03/2021 <16 06/10/2021 Not calculated PHARMACOTHERAPY ASSESSMENT/PLAN: 1. Type 2 diabetes mellitus without complication, unspecified whether parts counterman insulin use (HCC) - ICD9: 250.00, ICD10: E11.9 A1c goal < 8%; almost at goal (last A1c 8.2%); SMBG improving on current regimen. 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 Will continue current regimen. Renal function and LFTs appropriate for continued use CONTINUE Trulicity 1.5 mg weekly, Insulin glargine 65 units daily at bedtime HbA1c: due 12/04/21 Follow up: Patient is not scheduled to see PCP. Patient to follow up with PharmD on 10/23/21. Patient verbalized understanding of instructions. Jacquelin López PharmD, BCACP Primary Care Clinical Pharmacist [facility] The majority of the pharmacy visit (> 50%) was spent counseling and/or coordinating care for the patient. [Telephonic] time was 14 minutes. 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 07/29/2016 Irritated//Inflamed Seborrheic Keratosis 012 07/29/2016 Viral warts 07/18/2011 07/29/2016 Cutaneous skin tags 07/18/2011 07/29/2016 Other seborrheic keratosis 07/18/201107/29 Actinic skin damage 07/18/2011 07/29/2016 Solar lentigines 07/18/2011 07/29/2016 Melanocytic nevus of trunk 07/18/201107/29 Hypersomnia, unspecified 09/16/2010 017 documented as of this encounter (statuses as of 09/28/2021) [facility] History of Past illness Narrative* Problem Noted Date Resolved Date 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 07/29/2016 Irritated//Inflamed Seborrheic Keratosis 012 07/29/2016 Viral warts 07/18/2011 07/29/2016 Cutaneous skin tags 07/18/2011 07/29/2016 Other seborrheic keratosis 07/18/201107/29 Actinic skin damage 07/18/2011 07/29/2016 Solar lentigines 07/18/2011 07/29/2016 Melanocytic nevus of trunk 07/18/201107/29 Hypersomnia, unspecified 09/16/2010 017 documented as of this encounter (statuses as of 10/12/2021) [facility] History of Past illness Narrative* Problem Noted Date Resolved Date 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 07/29/2016 Irritated//Inflamed Seborrheic Keratosis 012 07/29/2016 Viral warts 07/18/2011 07/29/2016 Cutaneous skin tags 07/18/2011 07/29/2016 Other seborrheic keratosis 07/18/201107/29 Actinic skin damage 07/18/2011 07/29/2016 Solar lentigines 07/18/2011 07/29/2016 Melanocytic nevus of trunk 07/18/201107/29 Hypersomnia, unspecified 09/16/2010 017 documented as of this encounter (statuses as of 11/02/2021) [facility] History of Past illness Narrative* Problem Noted Date Resolved Date 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 07/29/2016 Irritated//Inflamed Seborrheic Keratosis 012 07/29/2016 Viral warts 07/18/2011 07/29/2016 Cutaneous skin tags 07/18/2011 07/29/2016 Other seborrheic keratosis 07/18/201107/29 Actinic skin damage 07/18/2011 07/29/2016 Solar lentigines 07/18/2011 07/29/2016 Melanocytic nevus of trunk 07/18/201107/29 Hypersomnia, unspecified 09/16/2010 017 documented as of this encounter (statuses as of 11/11/2021) [facility] History of Past illness Narrative* Problem Noted Date Resolved Date 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 07/29/2016 Irritated//Inflamed Seborrheic Keratosis 012 07/29/2016 Viral warts 07/18/2011 07/29/2016 Cutaneous skin tags 07/18/2011 07/29/2016 Other seborrheic keratosis 07/18/201107/29 Actinic skin damage 07/18/2011 07/29/2016 Solar lentigines 07/18/2011 07/29/2016 Melanocytic nevus of trunk 07/18/201107/29 Hypersomnia, unspecified 09/16/2010 017 documented as of this encounter (statuses as of 11/11/2021) [facility] History of Past illness Narrative* Problem Noted Date Resolved Date 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 07/29/2016 Irritated//Inflamed Seborrheic Keratosis 012 07/29/2016 Viral warts 07/18/2011 07/29/2016 Cutaneous skin tags 07/18/2011 07/29/2016 Other seborrheic keratosis 07/18/201107/29 Actinic skin damage 07/18/2011 07/29/2016 Solar lentigines 07/18/2011 07/29/2016 Melanocytic nevus of trunk 07/18/201107/29 Hypersomnia, unspecified 09/16/2010 017 documented as of this encounter (statuses as of 11/16/2021) [facility] History of Past illness Narrative* Problem Noted Date Resolved Date 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 07/29/2016 Irritated//Inflamed Seborrheic Keratosis 012 07/29/2016 Viral warts 07/18/2011 07/29/2016 Cutaneous skin tags 07/18/2011 07/29/2016 Other seborrheic keratosis 07/18/201107/29 Actinic skin damage 07/18/2011 07/29/2016 Solar lentigines 07/18/2011 07/29/2016 Melanocytic nevus of trunk 07/18/201107/29 Hypersomnia, unspecified 09/16/2010 017 documented as of this encounter (statuses as of 11/19/2021) [facility] History of Past illness Narrative* Problem Noted Date Resolved Date 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 07/29/2016 Irritated//Inflamed Seborrheic Keratosis 012 07/29/2016 Viral warts 07/18/2011 07/29/2016 Cutaneous skin tags 07/18/2011 07/29/2016 Other seborrheic keratosis 07/18/201107/29 Actinic skin damage 07/18/2011 07/29/2016 Solar lentigines 07/18/2011 07/29/2016 Melanocytic nevus of trunk 07/18/201107/29 Hypersomnia, unspecified 09/16/2010 017 documented as of this encounter (statuses as of 11/26/2021) [facility] History of Past illness Narrative* Problem Noted Date Resolved Date 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 07/29/2016 Irritated//Inflamed Seborrheic Keratosis 012 07/29/2016 Viral warts 07/18/2011 07/29/2016 Cutaneous skin tags 07/18/2011 07/29/2016 Other seborrheic keratosis 07/18/201107/29 Actinic skin damage 07/18/2011 07/29/2016 Solar lentigines 07/18/2011 07/29/2016 Melanocytic nevus of trunk 07/18/201107/29 Hypersomnia, unspecified 09/16/2010 017 documented as of this encounter (statuses as of 11/27/2021) [facility] History of Past illness Narrative* Problem Noted Date Resolved Date 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 07/29/2016 Irritated//Inflamed Seborrheic Keratosis 012 07/29/2016 Viral warts 07/18/2011 07/29/2016 Cutaneous skin tags 07/18/2011 07/29/2016 Other seborrheic keratosis 07/18/201107/29 Actinic skin damage 07/18/2011 07/29/2016 Solar lentigines 07/18/2011 07/29/2016 Melanocytic nevus of trunk 07/18/201107/29 Hypersomnia, unspecified 09/16/2010 017 documented as of this encounter (statuses as of 12/04/2021) [facility] History of Past illness Narrative* Problem Noted Date Resolved Date 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 07/29/2016 Irritated//Inflamed Seborrheic Keratosis 012 07/29/2016 Viral warts 07/18/2011 07/29/2016 Cutaneous skin tags 07/18/2011 07/29/2016 Other seborrheic keratosis 07/18/201107/29 Actinic skin damage 07/18/2011 07/29/2016 Solar lentigines 07/18/2011 07/29/2016 Melanocytic nevus of trunk 07/18/201107/29 Hypersomnia, unspecified 09/16/2010 017 documented as of this encounter (statuses as of 12/18/2021) [facility] History of Past illness Narrative* Problem Noted Date Resolved Date 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 07/29/2016 Irritated//Inflamed Seborrheic Keratosis 012 07/29/2016 Viral warts 07/18/2011 07/29/2016 Cutaneous skin tags 07/18/2011 07/29/2016 Other seborrheic keratosis 07/18/201107/29 Actinic skin damage 07/18/2011 07/29/2016 Solar lentigines 07/18/2011 07/29/2016 Melanocytic nevus of trunk 07/18/201107/29 Hypersomnia, unspecified 09/16/2010 017 documented as of this encounter (statuses as of 01/20/2022) [facility] History of Past illness Narrative* Problem Noted Date Resolved Date 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 07/29/2016 Irritated//Inflamed Seborrheic Keratosis 012 07/29/2016 Viral warts 07/18/2011 07/29/2016 Cutaneous skin tags 07/18/2011 07/29/2016 Other seborrheic keratosis 07/18/201107/29 Actinic skin damage 07/18/2011 07/29/2016 Solar lentigines 07/18/2011 07/29/2016 Melanocytic nevus of trunk 07/18/201107/29 Hypersomnia, unspecified 09/16/2010 017 documented as of this encounter (statuses as of 02/05/2022) [facility] History of Past illness Narrative* Problem Noted Date Resolved Date 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 07/29/2016 Irritated//Inflamed Seborrheic Keratosis 012 07/29/2016 Viral warts 07/18/2011 07/29/2016 Cutaneous skin tags 07/18/2011 07/29/2016 Other seborrheic keratosis 07/18/201107/29 Actinic skin damage 07/18/2011 07/29/2016 Solar lentigines 07/18/2011 07/29/2016 Melanocytic nevus of trunk 07/18/201107/29 Hypersomnia, unspecified 09/16/2010 017 documented as of this encounter (statuses as of 02/17/2022) [facility] History of Past illness Narrative* Problem Noted Date Resolved Date 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 07/29/2016 Irritated//Inflamed Seborrheic Keratosis 012 07/29/2016 Viral warts 07/18/2011 07/29/2016 Cutaneous skin tags 07/18/2011 07/29/2016 Other seborrheic keratosis 07/18/201107/29 Actinic skin damage 07/18/2011 07/29/2016 Solar lentigines 07/18/2011 07/29/2016 Melanocytic nevus of trunk 07/18/201107/29 Hypersomnia, unspecified 09/16/2010 017 documented as of this encounter (statuses as of 02/19/2022) [facility] History of Past illness Narrative* Problem Noted Date Resolved Date 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 07/29/2016 Irritated//Inflamed Seborrheic Keratosis 012 07/29/2016 Viral warts 07/18/2011 07/29/2016 Cutaneous skin tags 07/18/2011 07/29/2016 Other seborrheic keratosis 07/18/201107/29 Actinic skin damage 07/18/2011 07/29/2016 Solar lentigines 07/18/2011 07/29/2016 Melanocytic nevus of trunk 07/18/201107/29 Hypersomnia, unspecified 09/16/2010 017 documented as of this encounter (statuses as of 03/05/2022) [facility] History of Past illness Narrative* Problem Noted Date Resolved Date 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 07/29/2016 Irritated//Inflamed Seborrheic Keratosis 012 07/29/2016 Viral warts 07/18/2011 07/29/2016 Cutaneous skin tags 07/18/2011 07/29/2016 Other seborrheic keratosis 07/18/201107/29 Actinic skin damage 07/18/2011 07/29/2016 Solar lentigines 07/18/2011 07/29/2016 Melanocytic nevus of trunk 07/18/201107/29 Hypersomnia, unspecified 09/16/2010 017 documented as of this encounter (statuses as of 03/09/2022) [facility] History of Past illness Narrative* Problem Noted Date Resolved Date 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 07/29/2016 Irritated//Inflamed Seborrheic Keratosis 012 07/29/2016 Viral warts 07/18/2011 07/29/2016 Cutaneous skin tags 07/18/2011 07/29/2016 Other seborrheic keratosis 07/18/201107/29 Actinic skin damage 07/18/2011 07/29/2016 Solar lentigines 07/18/2011 07/29/2016 Melanocytic nevus of trunk 07/18/201107/29 Hypersomnia, unspecified 09/16/2010 017 documented as of this encounter (statuses as of 03/24/2022) [facility] History of Past illness Narrative* Problem Noted Date Resolved Date 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 07/29/2016 Irritated//Inflamed Seborrheic Keratosis 012 07/29/2016 Viral warts 07/18/2011 07/29/2016 Cutaneous skin tags 07/18/2011 07/29/2016 Other seborrheic keratosis 07/18/201107/29 Actinic skin damage 07/18/2011 07/29/2016 Solar lentigines 07/18/2011 07/29/2016 Melanocytic nevus of trunk 07/18/201107/29 Hypersomnia, unspecified 09/16/2010 017 documented as of this encounter (statuses as of 03/26/2022) [facility] History of Past illness Narrative* Problem Noted Date Resolved Date 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 07/29/2016 Irritated//Inflamed Seborrheic Keratosis 012 07/29/2016 Viral warts 07/18/2011 07/29/2016 Cutaneous skin tags 07/18/2011 07/29/2016 Other seborrheic keratosis 07/18/201107/29 Actinic skin damage 07/18/2011 07/29/2016 Solar lentigines 07/18/2011 07/29/2016 Melanocytic nevus of trunk 07/18/201107/29 Hypersomnia, unspecified 09/16/2010 017 documented as of this encounter (statuses as of 05/12/2022) [facility] History of Past illness Narrative* Problem Noted Date Resolved Date 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 07/29/2016 Irritated//Inflamed Seborrheic Keratosis 012 07/29/2016 Viral warts 07/18/2011 07/29/2016 Cutaneous skin tags 07/18/2011 07/29/2016 Other seborrheic keratosis 07/18/201107/29 Actinic skin damage 07/18/2011 07/29/2016 Solar lentigines 07/18/2011 07/29/2016 Melanocytic nevus of trunk 07/18/201107/29 Hypersomnia, unspecified 09/16/2010 017 documented as of this encounter (statuses as of 05/14/2022) [facility] History of Past illness Narrative* Problem Noted Date Resolved Date 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 07/29/2016 Irritated//Inflamed Seborrheic Keratosis 012 07/29/2016 Viral warts 07/18/2011 07/29/2016 Cutaneous skin tags 07/18/2011 07/29/2016 Other seborrheic keratosis 07/18/201107/29 Actinic skin damage 07/18/2011 07/29/2016 Solar lentigines 07/18/2011 07/29/2016 Melanocytic nevus of trunk 07/18/201107/29 Hypersomnia, unspecified 09/16/2010 017 documented as of this encounter (statuses as of 05/26/2022) [facility] History of Past illness Narrative* Problem Noted Date Resolved Date 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 07/29/2016 Irritated//Inflamed Seborrheic Keratosis 012 07/29/2016 Viral warts 07/18/2011 07/29/2016 Cutaneous skin tags 07/18/2011 07/29/2016 Other seborrheic keratosis 07/18/201107/29 Actinic skin damage 07/18/2011 07/29/2016 Solar lentigines 07/18/2011 07/29/2016 Melanocytic nevus of trunk 07/18/201107/29 Hypersomnia, unspecified 09/16/2010 017 documented as of this encounter (statuses as of 05/26/2022) [facility] History of Past illness Narrative* Problem Noted Date Resolved Date 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 07/29/2016 Irritated//Inflamed Seborrheic Keratosis 012 07/29/2016 Viral warts 07/18/2011 07/29/2016 Cutaneous skin tags 07/18/2011 07/29/2016 Other seborrheic keratosis 07/18/201107/29 Actinic skin damage 07/18/2011 07/29/2016 Solar lentigines 07/18/2011 07/29/2016 Melanocytic nevus of trunk 07/18/201107/29 Hypersomnia, unspecified 09/16/2010 017 documented as of this encounter (statuses as of 06/02/2022) [facility] History of Past illness Narrative* Problem Noted Date Resolved Date 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 07/29/2016 Irritated//Inflamed Seborrheic Keratosis 012 07/29/2016 Viral warts 07/18/2011 07/29/2016 Cutaneous skin tags 07/18/2011 07/29/2016 Other seborrheic keratosis 07/18/201107/29 Actinic skin damage 07/18/2011 07/29/2016 Solar lentigines 07/18/2011 07/29/2016 Melanocytic nevus of trunk 07/18/201107/29 Hypersomnia, unspecified 09/16/2010 017 documented as of this encounter (statuses as of 06/27/2022) [facility] History of Past illness Narrative* Problem Noted Date Resolved Date 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 07/29/2016 Irritated//Inflamed Seborrheic Keratosis 012 07/29/2016 Viral warts 07/18/2011 07/29/2016 Cutaneous skin tags 07/18/2011 07/29/2016 Other seborrheic keratosis 07/18/201107/29 Actinic skin damage 07/18/2011 07/29/2016 Solar lentigines 07/18/2011 07/29/2016 Melanocytic nevus of trunk 07/18/201107/29 Hypersomnia, unspecified 09/16/2010 017 documented as of this encounter (statuses as of 07/04/2022) [facility] History of Past illness Narrative* Problem Noted Date Resolved Date 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 07/29/2016 Irritated//Inflamed Seborrheic Keratosis 012 07/29/2016 Viral warts 07/18/2011 07/29/2016 Cutaneous skin tags 07/18/2011 07/29/2016 Other seborrheic keratosis 07/18/201107/29 Actinic skin damage 07/18/2011 07/29/2016 Solar lentigines 07/18/2011 07/29/2016 Melanocytic nevus of trunk 07/18/201107/29 Hypersomnia, unspecified 09/16/2010 017 documented as of this encounter (statuses as of 07/28/2022) [facility] History of Past illness Narrative* Problem Noted Date Resolved Date 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 07/29/2016 Irritated//Inflamed Seborrheic Keratosis 012 07/29/2016 Viral warts 07/18/2011 07/29/2016 Cutaneous skin tags 07/18/2011 07/29/2016 Other seborrheic keratosis 07/18/201107/29 Actinic skin damage 07/18/2011 07/29/2016 Solar lentigines 07/18/2011 07/29/2016 Melanocytic nevus of trunk 07/18/201107/29 Hypersomnia, unspecified 09/16/2010 017 documented as of this encounter (statuses as of 07/28/2022) [facility] History of Past illness Narrative* Problem Noted Date Resolved Date 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 07/29/2016 Irritated//Inflamed Seborrheic Keratosis 012 07/29/2016 Viral warts 07/18/2011 07/29/2016 Cutaneous skin tags 07/18/2011 07/29/2016 Other seborrheic keratosis 07/18/201107/29 Actinic skin damage 07/18/2011 07/29/2016 Solar lentigines 07/18/2011 07/29/2016 Melanocytic nevus of trunk 07/18/201107/29 Hypersomnia, unspecified 09/16/2010 017 documented as of this encounter (statuses as of 08/05/2022) [facility] History of Past illness Narrative* Problem Noted Date Resolved Date 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 07/29/2016 Irritated//Inflamed Seborrheic Keratosis 012 07/29/2016 Viral warts 07/18/2011 07/29/2016 Cutaneous skin tags 07/18/2011 07/29/2016 Other seborrheic keratosis 07/18/201107/29 Actinic skin damage 07/18/2011 07/29/2016 Solar lentigines 07/18/2011 07/29/2016 Melanocytic nevus of trunk 07/18/201107/29 Hypersomnia, unspecified 09/16/2010 017 documented as of this encounter (statuses as of 08/10/2022) [facility] History of Past illness Narrative* Problem Noted Date Resolved Date 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 07/29/2016 Irritated//Inflamed Seborrheic Keratosis 012 07/29/2016 Viral warts 07/18/2011 07/29/2016 Cutaneous skin tags 07/18/2011 07/29/2016 Other seborrheic keratosis 07/18/201107/29 Actinic skin damage 07/18/2011 07/29/2016 Solar lentigines 07/18/2011 07/29/2016 Melanocytic nevus of trunk 07/18/201107/29 Hypersomnia, unspecified 09/16/2010 017 documented as of this encounter (statuses as of 08/30/2022) [facility] History of Past illness Narrative* Problem Noted Date Resolved Date 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 07/29/2016 Irritated//Inflamed Seborrheic Keratosis 012 07/29/2016 Viral warts 07/18/2011 07/29/2016 Cutaneous skin tags 07/18/2011 07/29/2016 Other seborrheic keratosis 07/18/201107/29 Actinic skin damage 07/18/2011 07/29/2016 Solar lentigines 07/18/2011 07/29/2016 Melanocytic nevus of trunk 07/18/201107/29 Hypersomnia, unspecified 09/16/2010 017 documented as of this encounter (statuses as of 09/02/2022) [facility] History of Past illness Narrative* Problem Noted Date Resolved Date 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 07/29/2016 Irritated//Inflamed Seborrheic Keratosis 012 07/29/2016 Viral warts 07/18/2011 07/29/2016 Cutaneous skin tags 07/18/2011 07/29/2016 Other seborrheic keratosis 07/18/201107/29 Actinic skin damage 07/18/2011 07/29/2016 Solar lentigines 07/18/2011 07/29/2016 Melanocytic nevus of trunk 07/18/201107/29 Hypersomnia, unspecified 09/16/2010 017 documented as of this encounter (statuses as of 09/27/2022) [facility] [facility] of Past illness Narrative* Problem Noted Date Resolved Date 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 07/29/2016 Irritated//Inflamed Seborrheic Keratosis 012 07/29/2016 Viral warts 07/18/2011 07/29/2016 Cutaneous skin tags 07/18/2011 07/29/2016 Other seborrheic keratosis 07/18/201107/29 Actinic skin damage 07/18/2011 07/29/2016 Solar lentigines 07/18/2011 07/29/2016 Melanocytic nevus of trunk 07/18/201107/29 Hypersomnia, unspecified 09/16/2010 017 documented as of this encounter (statuses as of 10/12/2022) [facility] History of Past illness Narrative* Problem Noted Date Resolved Date 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 07/29/2016 Irritated//Inflamed Seborrheic Keratosis 012 07/29/2016 Viral warts 07/18/2011 07/29/2016 Cutaneous skin tags 07/18/2011 07/29/2016 Other seborrheic keratosis 07/18/201107/29 Actinic skin damage 07/18/2011 07/29/2016 Solar lentigines 07/18/2011 07/29/2016 Melanocytic nevus of trunk 07/18/201107/29 Hypersomnia, unspecified 09/16/2010 017 documented as of this encounter (statuses as of 10/15/2022) [facility] History of Past illness Narrative* Problem Noted Date Resolved Date 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 07/29/2016 Irritated//Inflamed Seborrheic Keratosis 012 07/29/2016 Viral warts 07/18/2011 07/29/2016 Cutaneous skin tags 07/18/2011 07/29/2016 Other seborrheic keratosis 07/18/201107/29 Actinic skin damage 07/18/2011 07/29/2016 Solar lentigines 07/18/2011 07/29/2016 Melanocytic nevus of trunk 07/18/201107/29 Hypersomnia, unspecified 09/16/2010 017 documented as of this encounter (statuses as of 10/28/2022) [facility] History of Past illness Narrative* Problem Noted Date Resolved Date 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 07/29/2016 Irritated//Inflamed Seborrheic Keratosis 012 07/29/2016 Viral warts 07/18/2011 07/29/2016 Cutaneous skin tags 07/18/2011 07/29/2016 Other seborrheic keratosis 07/18/201107/29 Actinic skin damage 07/18/2011 07/29/2016 Solar lentigines 07/18/2011 07/29/2016 Melanocytic nevus of trunk 07/18/201107/29 Hypersomnia, unspecified 09/16/2010 017 documented as of this encounter (statuses as of 10/29/2022) [facility] History of Past illness Narrative* Problem Noted Date Resolved Date 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 07/29/2016 Irritated//Inflamed Seborrheic Keratosis 012 07/29/2016 Viral warts 07/18/2011 07/29/2016 Cutaneous skin tags 07/18/2011 07/29/2016 Other seborrheic keratosis 07/18/201107/29 Actinic skin damage 07/18/2011 07/29/2016 Solar lentigines 07/18/2011 07/29/2016 Melanocytic nevus of trunk 07/18/201107/29 Hypersomnia, unspecified 09/16/2010 017 documented as of this encounter (statuses as of 10/29/2022) [facility] History of Past illness Narrative* Problem Noted Date Resolved Date 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 07/29/2016 Irritated//Inflamed Seborrheic Keratosis 012 07/29/2016 Viral warts 07/18/2011 07/29/2016 Cutaneous skin tags 07/18/2011 07/29/2016 Other seborrheic keratosis 07/18/201107/29 Actinic skin damage 07/18/2011 07/29/2016 Solar lentigines 07/18/2011 07/29/2016 Melanocytic nevus of trunk 07/18/201107/29 Hypersomnia, unspecified 09/16/2010 017 documented as of this encounter (statuses as of 11/01/2022) [facility] History of Past illness Narrative* Problem Noted Date Resolved Date 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 07/29/2016 Irritated//Inflamed Seborrheic Keratosis 012 07/29/2016 Viral warts 07/18/2011 07/29/2016 Cutaneous skin tags 07/18/2011 07/29/2016 Other seborrheic keratosis 07/18/201107/29 Actinic skin damage 07/18/2011 07/29/2016 Solar lentigines 07/18/2011 07/29/2016 Melanocytic nevus of trunk 07/18/201107/29 Hypersomnia, unspecified 09/16/2010 017 documented as of this encounter (statuses as of 11/03/2022) [facility] History of Past illness Narrative* Problem Noted Date Resolved Date 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 07/29/2016 Irritated//Inflamed Seborrheic Keratosis 012 07/29/2016 Viral warts 07/18/2011 07/29/2016 Cutaneous skin tags 07/18/2011 07/29/2016 Other seborrheic keratosis 07/18/201107/29 Actinic skin damage 07/18/2011 07/29/2016 Solar lentigines 07/18/2011 07/29/2016 Melanocytic nevus of trunk 07/18/201107/29 Hypersomnia, unspecified 09/16/2010 017 documented as of this encounter (statuses as of 11/12/2022) [facility] History of Past illness Narrative* Problem Noted Date Resolved Date 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 07/29/2016 Irritated//Inflamed Seborrheic Keratosis 012 07/29/2016 Viral warts 07/18/2011 07/29/2016 Cutaneous skin tags 07/18/2011 07/29/2016 Other seborrheic keratosis 07/18/201107/29 Actinic skin damage 07/18/2011 07/29/2016 Solar lentigines 07/18/2011 07/29/2016 Melanocytic nevus of trunk 07/18/201107/29 Hypersomnia, unspecified 09/16/2010 017 documented as of this encounter (statuses as of 11/13/2022) [facility] History of Past illness Narrative* Problem Noted Date Resolved Date 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 07/29/2016 Irritated//Inflamed Seborrheic Keratosis 012 07/29/2016 Viral warts 07/18/2011 07/29/2016 Cutaneous skin tags 07/18/2011 07/29/2016 Other seborrheic keratosis 07/18/201107/29 Actinic skin damage 07/18/2011 07/29/2016 Solar lentigines 07/18/2011 07/29/2016 Melanocytic nevus of trunk 07/18/201107/29 Hypersomnia, unspecified 09/16/2010 017 documented as of this encounter (statuses as of 12/04/2022) [facility] History of Past illness Narrative* Problem Noted Date Resolved Date 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 07/29/2016 Irritated//Inflamed Seborrheic Keratosis 012 07/29/2016 Viral warts 07/18/2011 07/29/2016 Cutaneous skin tags 07/18/2011 07/29/2016 Other seborrheic keratosis 07/18/201107/29 Actinic skin damage 07/18/2011 07/29/2016 Solar lentigines 07/18/2011 07/29/2016 Melanocytic nevus of trunk 07/18/201107/29 Hypersomnia, unspecified 09/16/2010 017 documented as of this encounter (statuses as of 12/07/2022) [facility] History of Past illness Narrative* Problem Noted Date Resolved Date 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 07/29/2016 Irritated//Inflamed Seborrheic Keratosis 012 07/29/2016 Viral warts 07/18/2011 07/29/2016 Cutaneous skin tags 07/18/2011 07/29/2016 Other seborrheic keratosis 07/18/201107/29 Actinic skin damage 07/18/2011 07/29/2016 Solar lentigines 07/18/2011 07/29/2016 Melanocytic nevus of trunk 07/18/201107/29 Hypersomnia, unspecified 09/16/2010 017 documented as of this encounter (statuses as of 01/04/2023) [facility] History of Past illness Narrative* Problem Noted Date Diagnosed Date Resolved Date 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 07/29/2016 Irritated//Inflamed Seborrheic Keratosis 07/18/2011 07/29/2016 Viral warts 07/18/2011 07/29/2016 Cutaneous skin tags 07/18/2011 07/29/19 17 Other seborrheic keratosis 07/18/2011 0 07/29/2016 Actinic skin damage 07/18/2011 07/29/19 17 Solar lentigines 07/18/2011 07/29/2016 Melanocytic nevus of trunk 07/18/2011 0 07/29/2016 Hypersomnia, unspecified 09/16/2010 documented as of this encounter (statuses as of 01/13/2023) [facility] History of Past illness Narrative* Problem Noted Date Diagnosed Date Resolved Date 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 07/29/2016 Irritated//Inflamed Seborrheic Keratosis 07/18/2011 07/29/2016 Viral warts 07/18/2011 07/29/2016 Cutaneous skin tags 07/18/2011 07/29/19 17 Other seborrheic keratosis 07/18/2011 0 07/29/2016 Actinic skin damage 07/18/2011 07/29/19 17 Solar lentigines 07/18/2011 07/29/2016 Melanocytic nevus of trunk 07/18/2011 0 07/29/2016 Hypersomnia, unspecified 09/16/2010 documented as of this encounter (statuses as of 01/14/2023) [facility] History of Past illness Narrative* Problem Noted Date Diagnosed Date Resolved Date 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 07/29/2016 Irritated//Inflamed Seborrheic Keratosis 07/18/2011 07/29/2016 Viral warts 07/18/2011 07/29/2016 Cutaneous skin tags 07/18/2011 07/29/19 17 Other seborrheic keratosis 07/18/2011 0 07/29/2016 Actinic skin damage 07/18/2011 07/29/19 17 Solar lentigines 07/18/2011 07/29/2016 Melanocytic nevus of trunk 07/18/2011 0 07/29/2016 Hypersomnia, unspecified 09/16/2010 documented as of this encounter (statuses as of 01/20/2023) [facility] History of Past illness Narrative* Problem Noted Date Diagnosed Date Resolved Date 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 07/29/2016 Irritated//Inflamed Seborrheic Keratosis 07/18/2011 07/29/2016 Viral warts 07/18/2011 07/29/2016 Cutaneous skin tags 07/18/2011 07/29/19 17 Other seborrheic keratosis 07/18/2011 0 07/29/2016 Actinic skin damage 07/18/2011 07/29/19 17 Solar lentigines 07/18/2011 07/29/2016 Melanocytic nevus of trunk 07/18/2011 0 07/29/2016 Hypersomnia, unspecified 09/16/2010 documented as of this encounter (statuses as of 01/21/2023) [facility] History of Past illness Narrative* Problem Noted Date Diagnosed Date Resolved Date 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 07/29/2016 Irritated//Inflamed Seborrheic Keratosis 07/18/2011 07/29/2016 Viral warts 07/18/2011 07/29/2016 Cutaneous skin tags 07/18/2011 07/29/19 17 Other seborrheic keratosis 07/18/2011 0 07/29/2016 Actinic skin damage 07/18/2011 07/29/19 17 Solar lentigines 07/18/2011 07/29/2016 Melanocytic nevus of trunk 07/18/2011 0 07/29/2016 Hypersomnia, unspecified 09/16/2010 documented as of this encounter (statuses as of 02/01/2023) [facility] History of Past illness Narrative* Problem Noted Date Diagnosed Date Resolved Date 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 07/29/2016 Irritated//Inflamed Seborrheic Keratosis 07/18/2011 07/29/2016 Viral warts 07/18/2011 07/29/2016 Cutaneous skin tags 07/18/2011 07/29/19 17 Other seborrheic keratosis 07/18/2011 0 07/29/2016 Actinic skin damage 07/18/2011 07/29/19 17 Solar lentigines 07/18/2011 07/29/2016 Melanocytic nevus of trunk 07/18/2011 0 07/29/2016 Hypersomnia, unspecified 09/16/2010 documented as of this encounter (statuses as of 04/18/2023) [facility] History of Past illness Narrative* Problem Noted Date Diagnosed Date Resolved Date 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 07/29/2016 Irritated//Inflamed Seborrheic Keratosis 07/18/2011 07/29/2016 Viral warts 07/18/2011 07/29/2016 Cutaneous skin tags 07/18/2011 07/29/19 17 Other seborrheic keratosis 07/18/2011 0 07/29/2016 Actinic skin damage 07/18/2011 07/29/19 17 Solar lentigines 07/18/2011 07/29/2016 Melanocytic nevus of trunk 07/18/2011 0 07/29/2016 Hypersomnia, unspecified 09/16/2010 documented as of this encounter (statuses as of 04/26/2023) [facility] History of Past illness Narrative* Problem Noted Date Diagnosed Date Resolved Date 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 07/29/2016 Irritated//Inflamed Seborrheic Keratosis 07/18/2011 07/29/2016 Viral warts 07/18/2011 07/29/2016 Cutaneous skin tags 07/18/2011 07/29/19 17 Other seborrheic keratosis 07/18/2011 0 07/29/2016 Actinic skin damage 07/18/2011 07/29/19 17 Solar lentigines 07/18/2011 07/29/2016 Melanocytic nevus of trunk 07/18/2011 0 07/29/2016 Hypersomnia, unspecified 09/16/2010 documented as of this encounter (statuses as of 05/05/2023) [facility] History of Past illness Narrative* Problem Noted Date Diagnosed Date Resolved Date 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 07/29/2016 Irritated//Inflamed Seborrheic Keratosis 07/18/2011 07/29/2016 Viral warts 07/18/2011 07/29/2016 Cutaneous skin tags 07/18/2011 07/29/19 17 Other seborrheic keratosis 07/18/2011 0 07/29/2016 Actinic skin damage 07/18/2011 07/29/19 17 Solar lentigines 07/18/2011 07/29/2016 Melanocytic nevus of trunk 07/18/2011 0 07/29/2016 Hypersomnia, unspecified 09/16/2010 documented as of this encounter (statuses as of 05/25/2023) [facility] History of Past illness Narrative* Problem Noted Date Diagnosed Date Resolved Date 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 07/29/2016 Irritated//Inflamed Seborrheic Keratosis 07/18/2011 07/29/2016 Viral warts 07/18/2011 07/29/2016 Cutaneous skin tags 07/18/2011 07/29/19 17 Other seborrheic keratosis 07/18/2011 0 07/29/2016 Actinic skin damage 07/18/2011 07/29/19 17 Solar lentigines 07/18/2011 07/29/2016 Melanocytic nevus of trunk 07/18/2011 0 07/29/2016 Hypersomnia, unspecified 09/16/2010 documented as of this encounter (statuses as of 05/25/2023) [facility] History of Past illness Narrative* Problem Noted Date Diagnosed Date Resolved Date 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 07/29/2016 Irritated//Inflamed Seborrheic Keratosis 07/18/2011 07/29/2016 Viral warts 07/18/2011 07/29/2016 Cutaneous skin tags 07/18/2011 07/29/19 17 Other seborrheic keratosis 07/18/2011 0 07/29/2016 Actinic skin damage 07/18/2011 07/29/19 17 Solar lentigines 07/18/2011 07/29/2016 Melanocytic nevus of trunk 07/18/2011 0 07/29/2016 Hypersomnia, unspecified 09/16/2010 documented as of this encounter (statuses as of 06/02/2023) [facility] History of Past illness Narrative* Problem Noted Date Diagnosed Date Resolved Date 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 07/29/2016 Irritated//Inflamed Seborrheic Keratosis 07/18/2011 07/29/2016 Viral warts 07/18/2011 07/29/2016 Cutaneous skin tags 07/18/2011 07/29/19 17 Other seborrheic keratosis 07/18/2011 0 07/29/2016 Actinic skin damage 07/18/2011 07/29/19 17 Solar lentigines 07/18/2011 07/29/2016 Melanocytic nevus of trunk 07/18/2011 0 07/29/2016 Hypersomnia, unspecified 09/16/2010 documented as of this encounter (statuses as of 06/13/2023) [facility] History of Past illness Narrative* Problem Noted Date Diagnosed Date Resolved Date 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 07/29/2016 Irritated//Inflamed Seborrheic Keratosis 07/18/2011 07/29/2016 Viral warts 07/18/2011 07/29/2016 Cutaneous skin tags 07/18/2011 07/29/19 17 Other seborrheic keratosis 07/18/2011 0 07/29/2016 Actinic skin damage 07/18/2011 07/29/19 17 Solar lentigines 07/18/2011 07/29/2016 Melanocytic nevus of trunk 07/18/2011 0 07/29/2016 Hypersomnia, unspecified 09/16/2010 documented as of this encounter (statuses as of 08/04/2023) [facility] Diagnosis Type 2 diabetes mellitus without complication, unspecified whether correction insulin use (HCC)- Primary [facility] this encounter [facility] Diagnosis Uncontrolled type 2 diabetes mellitus with hyperglycemia (HCC) [facility] Diagnosis Type 2 diabetes mellitus without complication, unspecified whether parts counterman insulin use (HCC)- Primary [facility] Diagnosis Prostate cancer (HCC) Malignant neoplasm of prostate [facility] Diagnosis Type 2 diabetes mellitus without complication, unspecified whether correction insulin use (HCC)- Primary [facility] Diagnosis Controlled type 2 diabetes mellitus without complication, unspecified whether parts counterman insulin use (HCC) [facility] Diagnosis Prostate cancer (HCC)- Primary Malignant neoplasm of prostate Bone metastases (HCC) Secondary malignant neoplasm of bone and bone marrow [facility] Diagnosis Prostate cancer (HCC)- Primary Malignant neoplasm of prostate Bone metastases (HCC) Secondary malignant neoplasm of bone and bone marrow [facility] Diagnosis Prostate cancer (HCC)- Primary Malignant neoplasm of prostate Bone metastases (HCC) Secondary malignant neoplasm of bone and bone marrow [facility] Diagnosis Type 2 diabetes mellitus without complication, unspecified whether correction insulin use (HCC)- Primary [facility] Diagnosis Prostate cancer (HCC)- Primary Malignant neoplasm of prostate [facility] Diagnosis Prostate cancer (HCC)- Primary Malignant neoplasm of prostate [facility] Diagnosis Prostate cancer (HCC)- Primary Malignant neoplasm of prostate Bone metastases (HCC) Secondary malignant neoplasm of bone and bone marrow [facility] Diagnosis Type 2 diabetes mellitus without complication, unspecified whether parts counterman insulin use (HCC)- Primary [facility] Diagnosis Prostate cancer (HCC) Malignant neoplasm of prostate [facility] Diagnosis Prostate cancer (HCC)- Primary Malignant neoplasm of prostate [facility] Diagnosis Prostate cancer (HCC) Malignant neoplasm of prostate [facility] Diagnosis Prostate cancer (HCC)- Primary Malignant neoplasm of prostate Bone metastases (HCC) Secondary malignant neoplasm of bone and bone marrow [facility] Diagnosis Prostate cancer (HCC)- Primary Malignant neoplasm of prostate [facility] Controlled type 2 diabetes mellitus without complication, unspecified whether parts counterman insulin use (HCC) [facility] Diagnosis Type 2 diabetes mellitus without complication, unspecified whether parts counterman insulin use (HCC) [facility] Diagnosis Diabetes mellitus (HCC) Type II or unspecified type diabetes mellitus without mention of complication, not stated as uncontrolled [facility] Diagnosis Prostate cancer (HCC)- Primary Malignant neoplasm of prostate [facility] Diagnosis Dysuria- Primary Morbid obesity (HCC) Morbid obesity [facility] Diagnosis Prostate cancer (HCC)- Primary Malignant neoplasm of prostate Prostate cancer metastatic to bone (HCC) Malignant neoplasm metastatic to bone (HCC) Secondary malignant neoplasm of bone and bone marrow Dysuria [facility] Diagnosis Diabetes mellitus (HCC) Type II or unspecified type diabetes mellitus without mention of complication, not stated as uncontrolled [facility] Diagnosis Diabetes mellitus (HCC) Type II or unspecified type diabetes mellitus without mention of complication, not stated as uncontrolled [facility] Prostate cancer (HCC)- Primary Malignant neoplasm of prostate Prostate cancer metastatic to bone (HCC) [facility] Diagnosis Chest pain, unspecified type- Primary Type 2 diabetes mellitus without complication, unspecified whether correction insulin use (HCC) Morbid obesity (HCC) Morbid obesity Prostate cancer (HCC) Malignant neoplasm of prostate Obstructive sleep apnea syndrome Obstructive sleep apnea (adult) (pediatric) documented [facility] Prostate cancer (HCC)- Primary Malignant neoplasm of prostate Prostate cancer metastatic to bone (HCC) Malignant neoplasm metastatic to bone (HCC) Secondary malignant neoplasm of bone and bone marrow [facility] Prostate cancer (HCC)- Primary Malignant neoplasm of prostate documented in this encounter [facility] Medications Administered Section Inactive Administered Medications - up to 3 most recent administrations Medication Order MAR Action Action Date Dose Rate Site zoledronic to-suuzktqr-6.9NaCl 4 mg iv piggyback 100 mL (ZOMETA) 4 mg, INTRAVENOUS, Administer over 15 Minutes, ONCE, 1 dose, On Tue11/27/21 at 1500, Hazardous Potential Reproductive Risk Drug: Use appropriate PPE. New Bag/Syringe/Bottle 11/27/2021 2:50 PM EDT 4 mg Inactive Administered Medications - up to 3 most recent administrations Medication Order MAR Action Action Date Dose Rate Site zoledronic yx-cikvnfrv-5.9NaCl 4 mg iv piggyback 100 mL (ZOMETA) 4 mg, INTRAVENOUS, Administer over 15 Minutes, ONCE, 1 dose, On Tue02/19/22 at 1500, Hazardous Potential Reproductive Risk Drug: Use appropriate PPE. New Bag/Syringe/Bottle 02/19/2022 3:05 PM EDT 4 mg Inactive Administered Medications - up to 3 most recent administrations Medication Order MAR Action Action Date Dose Rate Site zoledronic gn-qewisriz-2.9NaCl 4 mg iv piggyback 100 mL (ZOMETA) 4 mg, INTRAVENOUS, Administer over 15 Minutes, ONCE, 1 dose, On Tue10/29/22 at 1500, Hazardous Potential Reproductive Risk Drug: Use appropriate PPE. New Bag/Syringe/Bottle 10/29/2022 3:35 PM EDT 4 mg Inactive Administered Medications - up to 3 most recent administrations Medication Order MAR Action Action Date Dose Rate Site zoledronic wz-bpuvijpo-0.9NaCl 4 mg iv piggyback 100 mL (ZOMETA) 4 mg, INTRAVENOUS, Administer over 15 Minutes, ONCE, 1 dose, On Tue04/26/23 at 1430, Hazardous Potential Reproductive Risk Drug: Use appropriate PPE. New Bag/Syringe/Bottle 04/26/2023 2:11 PM EDT 4 mg 400 mL/hr Summary Purpose Family History No Family History Records Found Advance Directives No Advanced Directives Records Found Additional Source Comments Source Comments (unrecognize d section and content) In the event this informatio n is protected by the [facility] Confidentiality of Alcohol and Drug Abuse Patient Records regulations: The Federal rules restrict any use of the information to criminally investigate or prosecute any alcohol or drug abuse patient.[facility] the event this information is protected by the Federal Confidentiality of Alcohol and Drug Abuse Patient Records regulations: The Federal rules restrict any use of the information to criminally investigate or prosecute any alcohol or drug abuse patient.[facility] Hospital[facility] the event this information is protected by the Federal Confidentiality of Alcohol and Drug Abuse Patient Records regulations: The Federal rules restrict any use of the information to criminally investigate or prosecute any alcohol or drug abuse patient.[facility] Hospital[facility] the event this information is protected by the Federal Confidentiality of Alcohol and Drug Abuse Patient Records regulations: The Federal rules restrict any use of the information to criminally investigate or prosecute any alcohol or drug abuse patient.[facility] HospitalIn the event this information is protected by the Federal Confidentiality of Alcohol and Drug Abuse Patient Records regulations: The Federal rules restrict any use of the information to criminally investigate or prosecute any alcohol or drug abuse patient.[facility] HospitalIn the event this information is protected by the Federal Confidentiality of Alcohol and Drug Abuse Patient Records regulations: The Federal rules restrict any use of the information to criminally investigate or prosecute any alcohol or drug abuse patient.[facility] HospitalIn the event this information is protected by the Federal Confidentiality of Alcohol and Drug Abuse Patient Records regulations: The Federal rules restrict any use of the information to criminally investigate or prosecute any alcohol or drug abuse patient.[facility] HospitalIn the event this information is protected by the Federal Confidentiality of Alcohol and Drug Abuse Patient Records regulations: The Federal rules restrict any use of the information to criminally investigate or prosecute any alcohol or drug abuse patient.[facility] HospitalIn the event this information is protected by the Federal Confidentiality of Alcohol and Drug Abuse Patient Records regulations: The Federal rules restrict any use of the information to criminally investigate or prosecute any alcohol or drug abuse patient.[facility] HospitalIn the event this information is protected by the Federal Confidentiality of Alcohol and Drug Abuse Patient Records regulations: The Federal rules restrict any use of the information to criminally investigate or prosecute any alcohol or drug abuse patient.[facility] HospitalIn the event this information is protected by the Federal Confidentiality of Alcohol and Drug Abuse Patient Records regulations: The Federal rules restrict any use of the information to criminally investigate or prosecute any alcohol or drug abuse patient.[facility] HospitalIn the event this information is protected by the Federal Confidentiality of Alcohol and Drug Abuse Patient Records regulations: The Federal rules restrict any use of the information to criminally investigate or prosecute any alcohol or drug abuse patient.[facility] HospitalIn the event this information is protected by the Federal Confidentiality of Alcohol and Drug Abuse Patient Records regulations: The Federal rules restrict any use of the information to criminally investigate or prosecute any alcohol or drug abuse patient.[facility] HospitalIn the event this information is protected by the Federal Confidentiality of Alcohol and Drug Abuse Patient Records regulations: The Federal rules restrict any use of the information to criminally investigate or prosecute any alcohol or drug abuse patient.[facility] HospitalIn the event this information is protected by the Federal Confidentiality of Alcohol and Drug Abuse Patient Records regulations: The Federal rules restrict any use of the information to criminally investigate or prosecute any alcohol or drug abuse patient.[facility] HospitalIn the event this information is protected by the Federal Confidentiality of Alcohol and Drug Abuse Patient Records regulations: The Federal rules restrict any use of the information to criminally investigate or prosecute any alcohol or drug abuse patient.[facility] HospitalIn the event this information is protected by the Federal Confidentiality of Alcohol and Drug Abuse Patient Records regulations: The Federal rules restrict any use of the information to criminally investigate or prosecute any alcohol or drug abuse patient.[facility] HospitalIn the event this information is protected by the Federal Confidentiality of Alcohol and Drug Abuse Patient Records regulations: The Federal rules restrict any use of the information to criminally investigate or prosecute any alcohol or drug abuse patient.[facility] HospitalIn the event this information is protected by the Federal Confidentiality of Alcohol and Drug Abuse Patient Records regulations: The Federal rules restrict any use of the information to criminally investigate or prosecute any alcohol or drug abuse patient.[facility] HospitalIn the event this information is protected by the Federal Confidentiality of Alcohol and Drug Abuse Patient Records regulations: The Federal rules restrict any use of the information to criminally investigate or prosecute any alcohol or drug abuse patient.[facility] HospitalIn the event this information is protected by the Federal Confidentiality of Alcohol and Drug Abuse Patient Records regulations: The Federal rules restrict any use of the information to criminally investigate or prosecute any alcohol or drug abuse patient.[facility] HospitalIn the event this information is protected by the Federal Confidentiality of Alcohol and Drug Abuse Patient Records regulations: The Federal rules restrict any use of the information to criminally investigate or prosecute any alcohol or drug abuse patient.[facility] HospitalIn the event this information is protected by the Federal Confidentiality of Alcohol and Drug Abuse Patient Records regulations: The Federal rules restrict any use of the information to criminally investigate or prosecute any alcohol or drug abuse patient.[facility] HospitalIn the event this information is protected by the Federal Confidentiality of Alcohol and Drug Abuse Patient Records regulations: The Federal rules restrict any use of the information to criminally investigate or prosecute any alcohol or drug abuse patient.[facility] HospitalIn the event this information is protected by the Federal Confidentiality of Alcohol and Drug Abuse Patient Records regulations: The Federal rules restrict any use of the information to criminally investigate or prosecute any alcohol or drug abuse patient.[facility] HospitalIn the event this information is protected by the Federal Confidentiality of Alcohol and Drug Abuse Patient Records regulations: The Federal rules restrict any use of the information to criminally investigate or prosecute any alcohol or drug abuse patient.[facility] HospitalIn the event this information is protected by the Federal Confidentiality of Alcohol and Drug Abuse Patient Records regulations: The Federal rules restrict any use of the information to criminally investigate or prosecute any alcohol or drug abuse patient.[facility] HospitalIn the event this information is protected by the Federal Confidentiality of Alcohol and Drug Abuse Patient Records regulations: The Federal rules restrict any use of the information to criminally investigate or prosecute any alcohol or drug abuse patient.[facility] HospitalIn the event this information is protected by the Federal Confidentiality of Alcohol and Drug Abuse Patient Records regulations: The Federal rules restrict any use of the information to criminally investigate or prosecute any alcohol or drug abuse patient.[facility] HospitalIn the event this information is protected by the Federal Confidentiality of Alcohol and Drug Abuse Patient Records regulations: The Federal rules restrict any use of the information to criminally investigate or prosecute any alcohol or drug abuse patient.[facility] HospitalIn the event this information is protected by the Federal Confidentiality of Alcohol and Drug Abuse Patient Records regulations: The Federal rules restrict any use of the information to criminally investigate or prosecute any alcohol or drug abuse patient.[facility] HospitalIn the event this information is protected by the Federal Confidentiality of Alcohol and Drug Abuse Patient Records regulations: The Federal rules restrict any use of the information to criminally investigate or prosecute any alcohol or drug abuse patient.[facility] HospitalIn the event this information is protected by the Federal Confidentiality of Alcohol and Drug Abuse Patient Records regulations: The Federal rules restrict any use of the information to criminally investigate or prosecute any alcohol or drug abuse patient.[facility] HospitalIn the event this information is protected by the Federal Confidentiality of Alcohol and Drug Abuse Patient Records regulations: The Federal rules restrict any use of the information to criminally investigate or prosecute any alcohol or drug abuse patient.[facility] HospitalIn the event this information is protected by the Federal Confidentiality of Alcohol and Drug Abuse Patient Records regulations: The Federal rules restrict any use of the information to criminally investigate or prosecute any alcohol or drug abuse patient.[facility] the event this information is protected by the Federal Confidentiality of Alcohol and Drug Abuse Patient Records regulations: The Federal rules restrict any use of the information to criminally investigate or prosecute any alcohol or drug abuse patient.[facility] HospitalIn the event this information is protected by the Federal Confidentiality of Alcohol and Drug Abuse Patient Records regulations: The Federal rules restrict any use of the information to criminally investigate or prosecute any alcohol or drug abuse patient.[facility] HospitalIn the event this information is protected by the Federal Confidentiality of Alcohol and Drug Abuse Patient Records regulations: The Federal rules restrict any use of the information to criminally investigate or prosecute any alcohol or drug abuse patient.[facility]In the event this information is protected by the Federal Confidentiality of Alcohol and Drug Abuse Patient Records regulations: The Federal rules restrict any use of the information to criminally investigate or prosecute any alcohol or drug abuse patient.[facility] HospitalIn the event this information is protected by the Federal Confidentiality of Alcohol and Drug Abuse Patient Records regulations: The Federal rules restrict any use of the information to criminally investigate or prosecute any alcohol or drug abuse patient.[facility] HospitalIn the event this information is protected by the Federal Confidentiality of Alcohol and Drug Abuse Patient Records regulations: The Federal rules restrict any use of the information to criminally investigate or prosecute any alcohol or drug abuse patient.[facility] HospitalIn the event this information is protected by the Federal Confidentiality of Alcohol and Drug Abuse Patient Records regulations: The Federal rules restrict any use of the information to criminally investigate or prosecute any alcohol or drug abuse patient.[facility] HospitalIn the event this information is protected by the Federal Confidentiality of Alcohol and Drug Abuse Patient Records regulations: The Federal rules restrict any use of the information to criminally investigate or prosecute any alcohol or drug abuse patient.[facility] HospitalIn the event this information is protected by the Federal Confidentiality of Alcohol and Drug Abuse Patient Records regulations: The Federal rules restrict any use of the information to criminally investigate or prosecute any alcohol or drug abuse patient.[facility] HospitalIn the event this information is protected by the Federal Confidentiality of Alcohol and Drug Abuse Patient Records regulations: The Federal rules restrict any use of the information to criminally investigate or prosecute any alcohol or drug abuse patient.[facility] HospitalIn the event this information is protected by the Federal Confidentiality of Alcohol and Drug Abuse Patient Records regulations: The Federal rules restrict any use of the information to criminally investigate or prosecute any alcohol or drug abuse patient.[facility] HospitalIn the event this information is protected by the Federal Confidentiality of Alcohol and Drug Abuse Patient Records regulations: The Federal rules restrict any use of the information to criminally investigate or prosecute any alcohol or drug abuse patient.[facility] HospitalIn the event this information is protected by the Federal Confidentiality of Alcohol and Drug Abuse Patient Records regulations: The Federal rules restrict any use of the information to criminally investigate or prosecute any alcohol or drug abuse patient.[facility] HospitalIn the event this information is protected by the Federal Confidentiality of Alcohol and Drug Abuse Patient Records regulations: The Federal rules restrict any use of the information to criminally investigate or prosecute any alcohol or drug abuse patient.[facility] HospitalIn the event this information is protected by the Federal Confidentiality of Alcohol and Drug Abuse Patient Records regulations: The Federal rules restrict any use of the information to criminally investigate or prosecute any alcohol or drug abuse patient.[facility] HospitalIn the event this information is protected by the Federal Confidentiality of Alcohol and Drug Abuse Patient Records regulations: The Federal rules restrict any use of the information to criminally investigate or prosecute any alcohol or drug abuse patient.[facility] HospitalIn the event this information is protected by the Federal Confidentiality of Alcohol and Drug Abuse Patient Records regulations: The Federal rules restrict any use of the information to criminally investigate or prosecute any alcohol or drug abuse patient.[facility] HospitalIn the event this information is protected by the Federal Confidentiality of Alcohol and Drug Abuse Patient Records regulations: The Federal rules restrict any use of the information to criminally investigate or prosecute any alcohol or drug abuse patient.[facility] HospitalIn the event this information is protected by the Federal Confidentiality of Alcohol and Drug Abuse Patient Records regulations: The Federal rules restrict any use of the information to criminally investigate or prosecute any alcohol or drug abuse patient.[facility] HospitalIn the event this information is protected by the Federal Confidentiality of Alcohol and Drug Abuse Patient Records regulations: The Federal rules restrict any use of the information to criminally investigate or prosecute any alcohol or drug abuse patient.[facility] HospitalIn the event this information is protected by the Federal Confidentiality of Alcohol and Drug Abuse Patient Records regulations: The Federal rules restrict any use of the information to criminally investigate or prosecute any alcohol or drug abuse patient.[facility] HospitalIn the event this information is protected by the Federal Confidentiality of Alcohol and Drug Abuse Patient Records regulations: The Federal rules restrict any use of the information to criminally investigate or prosecute any alcohol or drug abuse patient.[facility] HospitalIn the event this information is protected by the Federal Confidentiality of Alcohol and Drug Abuse Patient Records regulations: The Federal rules restrict any use of the information to criminally investigate or prosecute any alcohol or drug abuse patient.[facility] HospitalIn the event this information is protected by the Federal Confidentiality of Alcohol and Drug Abuse Patient Records regulations: The Federal rules restrict any use of the information to criminally investigate or prosecute any alcohol or drug abuse patient.[facility] HospitalIn the event this information is protected by the Federal Confidentiality of Alcohol and Drug Abuse Patient Records regulations: The Federal rules restrict any use of the information to criminally investigate or prosecute any alcohol or drug abuse patient.[facility] HospitalIn the event this information is protected by the Federal Confidentiality of Alcohol and Drug Abuse Patient Records regulations: The Federal rules restrict any use of the information to criminally investigate or prosecute any alcohol or drug abuse patient.[facility] HospitalIn the event this information is protected by the Federal Confidentiality of Alcohol and Drug Abuse Patient Records regulations: The Federal rules restrict any use of the information to criminally investigate or prosecute any alcohol or drug abuse patient.[facility] Reason for Visit (unrecogniz ed section and content) Reason Onset Date Comments SPP Oral Oncology/hematology - Medication Refill 10/12/2021 Xtandi 40mg Reason Comments Refill Request xtandi Reason Onset Date Comments SPP Oral Oncology/hematology - Medication Refill 11/11/2021 Xtandi 40mg Reason Onset Date Comments Refill Request 11/19/2021 Reason Comments Established Patient Reason Comments Non-Chemotherapy Treatment Specialty Diagnoses / Procedures Referred By Contac Referred To Contact Diagnoses Prostate cancer (HCC) Bone metastases (HCC) Procedures INJECTION, ZOLEDRONIC ACID, 1 MG Masci, Duong A, DO [address] [place] [address] [facility] [address] [place] [address] Referral ID Status Reason Start Date Expiration Date V isits Requested Visits Authorized [id number] Authorized 05/14/2020 07/03/2022 99 99 Reason Onset Date Comments SPP Oral Oncology/hematology - Medication Refill 12/18/2021 Xtandi 40mg Reason Onset Date Comments SPP Oral Oncology/hematology - Medication Refill 01/20/2022 refill Reason Comments Infusion Specialty Diagnoses / Procedures Referred By Contac t Referred To Contact Diagnoses Prostate cancer (HCC) Bone metastases (HCC) Procedures INJECTION, ZOLEDRONIC ACID, 1 MG Masci, Duong A, DO [address] [place] [address] [facility] [address] [place] [address] Reason Onset Date Comments Med Change Request 03/05/2022 Reason Comments Refill Request Reason Onset Date Comments SPP Oral Oncology/hematology - Medication Refill 03/26/2022 Xtandi 40mg Reason Comments Results Cervical x-rays Reason Comments Diabetes Reason Onset Date Comments SPP Oral Oncology/hematology - Medication Refill 05/26/2022 Xtandi Reason Comments Orders Reason Onset Date Comments Population Health Navigation Outreach 05/25/2022 [employer] care gap Reason Comments Medication Follow-up Farxiga Reason Onset Date Comments SPP Oral Oncology/hematology - Medication Refill 06/29/2022 Xtandi 40mg Reason Onset Date Comments SPP Oral Oncology/hematology - Medication Refill 07/28/2022 Xtandi 40mg Reason Comments Lab Orders Reason Comments Results A1c Reason Onset Date Comments SPP Oral Oncology/hematology - Medication Refill 08/30/2022 Xtandi 40mg Specialty Diagnoses / Procedures Referred By [facility] Referred To Contact Diagnoses Prostate cancer (HCC) Bone metastases Procedures INJECTION, ZOLEDRONIC ACID, 1 MG Duong Lyn, DO [address] [place] [id number] Prasanth [facility] [address] [place] [address] Referral ID Status Reason Start Date Expiration Date V isits Requested Visits Authorized [id number] Authorized 05/14/2020 07/03/2023 99 99 Reason Onset Date Comments SPP Oral Oncology/hematology - Medication Refill 11/01/2022 Xtandi 40mg Reason Comments Results UA and culture Reason Onset Date Comments SPP Oral Oncology/hematology - Medication Refill 12/06/2022 Xtandi Reason Onset Date Comments SPP Oral Oncology/hematology - Medication Refill 01/03/2023 Xtandi Reason Comments Patient Update Reason Comments ED Follow-up [facility]-che[facility] Reason Onset Date Comments SPP Oral Oncology/hematology - Medication Refill 02/01/2023 Xtandi 40mg Reason Comments Missed Appointment Specialty Diagnoses / Procedures Referred By [facility] Referred To Contact Diagnoses Prostate cancer (HCC) Bone metastases Procedures INJECTION, ZOLEDRONIC ACID, 1 MG Duong Lyn, DO [address] [place] [address] [facility]h [facility] [address] [place] [address] Reason Onset Date Comments Refill Request 05/24/2023 Reason Onset Date Comments SPP Oral Oncology/hematology - Medication Refill 06/02/2023 Xtandi 40mg Reason Onset Date Comments Refill Request 06/11/2023 Reason Onset Date Comments SPP Oral Oncology/hematology - Medication Refill 08/04/2023 Xtandi Care Teams (unrecognized sec tion and content) Dinkey Skinner Relationship Specialty Start Date End Date Megan Loyd MD [address] [place] [address] PCP - General Family Practice 07/31/15 [facility] [address] [place] [address] Pharmacist Pharmacy 04/15/21 Dinkey Skinner Relationship Specialty Start Date End Date Megan Loyd MD [address] [place] [address] PCP - General Family Practice 07/31/15 [facility] [address] [facility] [place] [address] Pharmacist Pharmacy 04/15/21 Dinkey Skinner Relationship Specialty Start Date End Date Megan Loyd MD [address] [place] [address] PCP - General Family Practice 07/31/15 [facility] [address] [place] [address] Pharmacist Pharmacy 04/15/21 Dinkey Skinner Relationship Specialty Start Date End Date Megan Loyd MD [address] [place] [address] PCP - General Family Practice 07/31/15 Jourdanashley Macyvioletta, [facility] [address] [place] [address] Pharmacist Pharmacy 04/15/21 Dinkey Skinner Relationship Specialty Start Date End Date Megan Loyd MD [address] [facility] [place] [address] PCP - General Family Practice 07/31/15 Jacquelin López, [facility] [address] [place] [address] Pharmacist Pharmacy 04/15/21 Dinkey Skinner Relationship Specialty Start Date End Date Megan Loyd MD [address] [facility] [place] [address] PCP - General Family Practice 07/31/15 [facility] [address] [place] [address] Pharmacist Pharmacy 04/15/21 Dinkey Skinner Relationship Specialty Start Date End Date Megan Loyd MD [address] [facility] [place] [address] PCP - General Family Practice 07/31/15 JourdanJacquelin ramirez, [facility] [address] [place] [address] Pharmacist Pharmacy 04/15/21 Dinkey Skinner Relationship Specialty Start Date End Date Megan Loyd MD [address] [facility] [place] [address] PCP - General Family Medicine 07/31/15 JourdanashleyJacquelin, [facility] [address] [place] [address] Pharmacist Pharmacy 04/15/21 Dinkey Skinner Relationship Specialty Start Date End Date Megan Loyd MD [address] [facility] [place] [address] PCP - General Family Medicine 07/31/15 [facility] [address] [place] [address] Pharmacist Pharmacy 04/15/21 Dinkey Skinner Relationship Specialty Start Date End Date Megan Loyd MD [address] [place] [address] PCP - General Family Medicine 07/31/15 [facility] [address] [place] [address] Pharmacist Pharmacy 04/15/21 Duong Lyn, DO [address] [place] [address] Hematology/Oncology 04/20/22 Dinkey Skinner Relationship Specialty Start Date End Date Megan Loyd MD [address] [place] [address] PCP - General Family Medicine 07/31/15 [facility] [address] [place] [address] Pharmacist Pharmacy 04/15/21 Duong Lyn, DO [address] [place] [address] Hematology/Oncology 04/20/22 Dinkey Skinner Relationship Specialty Start Date End Date Megan Loyd MD [address] [place] [address] PCP - General Family Medicine 07/31/15 [facility] [address] [place] [address] Pharmacist Pharmacy 04/15/21 Duong Lyn, DO [address] [place] [address] Hematology/Oncology 04/20/22 Dinkey Skinner Relationship Specialty Start Date End Date Megan Loyd MD [address] [place] [address] PCP - General Family Medicine 07/31/15 [facility] [address] [place] [address] Pharmacist Pharmacy 04/15/21 Duong Lyn, DO [address] [place] [address] Hematology/Oncology 04/20/22 Dinkey Skinner Relationship Specialty Start Date End Date Megan Loyd MD [address] [place] [address] PCP - General Family Medicine 07/31/15 [facility] [address] [place] [address] Pharmacist Pharmacy 04/15/21 Duong Lyn, DO [address] [place] [address] Hematology/Oncology 04/20/22 Dinkey Skinner Relationship Specialty Start Date End Date Megan Loyd MD [address] [place] [place] [address] PCP - General Family Medicine 07/31/15 [facility] [address] [place] [address] Pharmacist Pharmacy 04/15/21 Duong Lyn, DO [address] [place] [address] Hematology/Oncology 04/20/22 Dinkey Skinner Relationship Specialty Start Date End Date Megan Loyd MD [address] [place] [place] [address] PCP - General Family Medicine 07/31/15 [facility] [address] [place] [address] Pharmacist Pharmacy 04/15/21 Duong Lyn, DO [address] [place] [address] Hematology/Oncology 04/20/22 Dinkey Skinner Relationship Specialty Start Date End Date Megan Loyd MD [address] [place] [place] [address] PCP - General Family Medicine 07/31/15 [facility] [address] [place] [address] Pharmacist Pharmacy 04/15/21 Duong Lyn, DO [address] [place] [address] Hematology/Oncology 04/20/22 Dinkey Skinner Relationship Specialty Start Date End Date Megan Loyd MD [address] [place] [place] [address] PCP - General Family Medicine 07/31/15 [facility] [address] [place] [address] Pharmacist Pharmacy 04/15/21 Duong Lyn, DO [address] [place] [address] Hematology/Oncology 04/20/22 Dinkey Skinner Relationship Specialty Start Date End Date Megan Loyd MD [address] [place] [address] PCP - General Family Medicine 07/31/15 [facility] [address] [place] [address] Pharmacist Pharmacy 04/15/21 Duong Lyn DO [address] [place] [address] Hematology/Oncology 04/20/22 Dinkey Skinner Relationship Specialty Start Date End Date Megan Loyd MD [address] [place] [address] PCP - General Family Medicine 07/31/15 Jacquelin López [facility] [address] [place] [address] Pharmacist Pharmacy 04/15/21 Duong Lyn DO [address] [place] [address] Hematology/Oncology 04/20/22 Dinkey Skinner Relationship Specialty Start Date End Date Megan Loyd MD [address] [place] [address] PCP - General Family Medicine 07/31/15 Jacquelin López [facility] [address] [place] [address] Pharmacist Pharmacy 04/15/21 Duong Lyn DO [address] [place] [address] Hematology/Oncology 04/20/22 Dinkey Skinner Relationship Specialty Start Date End Date Megan Loyd MD [address] [place] [address] PCP - General Family Medicine 07/31/15 [facility] [address] [place] [address] Pharmacist Pharmacy 04/15/21 Duong Lyn DO [address] [place] [address] Hematology/Oncology 04/20/22 Dinkey Skinner Relationship Specialty Start Date End Date Megan Loyd MD [address] [place] [address] PCP - General Family Medicine 07/31/15 [facility] [address] [place] [address] Pharmacist Pharmacy 04/15/21 Duong Lyn DO [address] [place] [address] Hematology/Oncology 04/20/22 Dinkey Skinner Relationship Specialty Start Date End Date Megan Loyd MD [address] [place] [address] PCP - General Family Medicine 07/31/15 [facility] [address] [place] [address] Pharmacist Pharmacy 04/15/21 Duong Lyn DO [address] [place] [address] Hematology/Oncology 04/20/22 Dinkey Skinner Relationship Specialty Start Date End Date Megan Loyd MD [address] [place] [address] PCP - General Family Medicine 07/31/15 [facility] [address] [place] [address] Pharmacist Pharmacy 04/15/21 Duong Lyn DO [address] [place] [address] Hematology/Oncology 04/20/22 Dinkey Skinner Relationship Specialty Start Date End Date Megan Loyd MD [address] [place] [address] PCP - General Family Medicine 07/31/15 [facility] [address] [place] [address] Pharmacist Pharmacy 04/15/21 Duong Lyn DO [address] [place] [address] Hematology/Oncology 04/20/22 Dinkey Skinner Relationship Specialty Start Date End Date Megan Loyd MD [address] [place] [address] PCP - General Family Medicine 07/31/15 [facility] [address] [place] [address] Pharmacist Pharmacy 04/15/21 Duong Lyn DO [address] [place] [address] Hematology/Oncology 04/20/22 Dinkey Skinner Relationship Specialty Start Date End Date Megan Loyd MD [address] [place] [address] PCP - General Family Medicine 07/31/15 [facility] [address] [place] [address] Pharmacist Pharmacy 04/15/21 Duong Lyn DO [address] [place] [address] Hematology/Oncology 04/20/22 Dinkey Skinner Relationship Specialty Start Date End Date Megan Loyd MD [address] [place], [place] [id number] PCP - General Family Medicine 07/31/15 [facility] [address] [place], [place] [address] Pharmacist Pharmacy 04/15/21 Duong Lyn DO [address] [place] [id number] Hematology/Oncology 04/20/22 (unrecognized sect ion and content) No Status Records Found INFORMATION SOURCE (unrecogn ized section and content) FOR RECORDS PERTAINING TO PATIENTS WHO ARE OR HAVE BEEN ENROLLED IN A CHEMICAL DEPENDENCY/SUBSTANCEABUSE PROGRAM, SOME INFORMATION MAY BE OMITTED. This clinical summary was aggregated from multiple sources. Caution should be exercised in using it in the provision of clinical care. This summary normalizes information from multiple sources, and as a consequence, information in this document may materially change the coding, format and clinical context of patient data. In addition, data may be omitted in some cases. CLINICAL DECISIONS SHOULD BE BASED ON THE PRIMARY CLINICAL RECORDS. [employer] provides no warranty or guarantee of the accuracy or completeness of information in this document.
== END | disposition home or self-care (01) ==
PROVIDERS: PCP Family Medicine; Referring Provider Surgery; Visit Provider Surgery
DX: K11.8 Other diseases of salivary glands (principal)
CPT/HCPCS: 70491; Q9967; A4216

== ENCOUNTER → 2024-04-18 | Outpatient (CLI) | payer MEDICARE, SELFPAY ==
--- NOTE | 2024-04-18 08:10 | NM_ITS ---
CLINICAL: 73-year-old male with history of primary prostate carcinoma. WHOLE BODY 99m Tc MDP RADIONUCLIDE BONE SCINTIGRAPHY COMPARISON: Previous whole body bone scintigraphy study dated 03/09/2019 FINDINGS: Following the intravenous administration of 25.6 mCi of 99m Tc MDP, whole body bone images reveal: 1. Enhanced radiotracer distribution is both redefined and newly visualized in the mid-lower cervical spine, the sixth through ninth thoracic vertebra, the 12th thoracic vertebra, fifth lumbar vertebra posteriorly on the right, the medial tibial compartments of both knees, the bilateral midfoot. 2. The remaining skeletal structures are scintigraphically unremarkable with normal-appearing renal images and urinary bladder activity identified. Increased radiopharmaceutical is noted in the lateral tibial plateau bilaterally most consistent with periostitis. NM/Bone Scan Whole Body IMPRESSION: 1. 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 2. Overall compared to the previous whole body bone scintigraphy study dated 03/09/2019, there is minimal interval change. No definitive scintigraphic evidence of skeletal metastases is demonstrated. Electronically Signed: Dante Rogel DO at 9:26 EDT ,
== END | disposition home or self-care (01) ==
LOC: NM 08:09
PROVIDERS: PCP Family Medicine; Referring Provider Internal Medicine Hematology & Oncology; Visit Provider Internal Medicine Hematology & Oncology
DX: C61 Malignant neoplasm of prostate (principal); C79.51 Secondary malignant neoplasm of bone
CPT/HCPCS: 78306; A9503